=== PATIENT | female | born 1940 | race Caucasian/White ===

== ENCOUNTER → 2016-05-02 | Outpatient (CLI) | payer MEDICARE, MEDICAID ==
[~2016-05-02] MED LIST: GADOBUTROL 10mMol/10ml INJECTION IV ONE; LISI10TA7 PO; SALINE FLUSH 10ml SYRINGE ONE
--- NOTE | 2016-05-03 10:47 | DI ---
Indication: ITS.REASON: R25.1 Tremor, unspecified; G45.9 Transient cerebral ischemic erik PROCEDURE: MRI CERVICAL SPINE W/WO CONTRA: Encounter: Initial Comparison: None Technique: Multiplanar multisequence MR imaging of the cervical spine was performed with and without contrast. Contrast: 6.5 mL Gadavist Findings: Alignment of the cervical spine shows some mild scoliosis. No acute fracture identified. Possible hemangioma within the C7 vertebra. The cervical and upper thoracic spinal cord signal intensity is normal. Paraspinal soft tissues are unremarkable. 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 Segmental analysis: C2-C3: Fused without focal disk herniation, central canal or neural foraminal stenosis C3-C4: Left-sided uncovertebral hypertrophy causing mild left foraminal stenosis. No disk herniation, central canal or right neural foraminal narrowing. C4-C5: Degenerative facet and uncovertebral hypertrophy on the left causing moderate to severe neural foraminal stenosis. No focal disk herniation, central canal or right neural foraminal narrowing. C5-C6: Degenerative facet and uncovertebral changes on the right causing moderate neural foraminal stenosis. Mild degenerative left neural foraminal narrowing. No significant central canal stenosis. C6-C7: Right central disk protrusion without central canal stenosis. No right foraminal narrowing. Degenerative facet hypertrophy on the left causing severe left neural foraminal stenosis. C7-T1: Normal Postcontrast imaging shows no enhancing vertebral body or spinal cord masses. Impression: Degenerative disk and facet changes as above. No enhancing mass lesions or evidence of demyelination. .
--- NOTE | 2016-05-03 10:49 | DI ---
Indication: ITS.REASON: R25.1 Tremor, unspecified; G45.9 Transient cerebral ischemic erik PROCEDURE: MRI BRAIN W/WO CONTRAST: Encounter: Initial Comparisons: None Technique: Multiplanar, multisequence, MR imaging of the head with and without contrast was acquired. Contrast: 6.5 mL of Gadavist FINDINGS: Mild atrophy. The ventricles are of normal size, shape, and contour for the patient's age. There are small nonspecific punctate areas of T2-weighted and T2 FLAIR weighted signal abnormality in the deep frontoparietal white matter that most likely represent small vessel ischemic disease. This is of a degree that is considered to be normal for the patient's age. The brain stem, cerebellum, and cerebral hemispheres otherwise have a normal morphologic appearance as well as MR signal intensity on all pulse sequences. Following intravenous administration of contrast, no areas of abnormal enhancement are evident. There are no areas of restricted diffusion to suggest an acute infarct. There is no evidence of an intracranial mass lesion, intracranial hemorrhage, or hydrocephalus. The visualized portions of the orbits, calvarium, paranasal sinuses, and skull base demonstrate no significant abnormality. IMPRESSION: Unremarkable MRI of the head for the patient's age with and without contrast. .
== END ==
LOC: IMA 07:40
PROVIDERS: ATTEND Psychiatry & Neurology Neurology
DX: R25.1 Tremor, unspecified (principal); M41.9 Scoliosis, unspecified; M47.9 Spondylosis, unspecified; M50.223 Other cervical disc displacement at C6-C7 level; G45.9 Transient cerebral ischemic attack, unspecified
CPT/HCPCS: 70553; 72156; A9585

== ENCOUNTER 2016-05-16 20:00 | Observation (INO) | payer MEDICARE, MEDICAID ==
[~2016-05-16] VITALS: Ht 157.5 cm; Wt 87.2 kg
[~2016-05-16 20:00] MED LIST changes: -GADOBUTROL 10mMol/10ml INJECTION IV ONE; -SALINE FLUSH 10ml SYRINGE ONE
--- OUTSIDE RECORDS SUMMARY | 2016-05-16 20:04 | XMS REPORT | Continuity of Care Document ---
Author Author [facility] Organization [facility] Address Unknown Phone Unavailable Support Name Relationship Address Phone SAMSON GUZMAN MD Caregiver [facility] [address] [place] [address] Unavailable ZULAY HILL MD Caregiver [address] [place] [address] [address] [place], [place] [phone] CAO DERIK Next Of Kin [address], [place] [address] Insurance Providers Payer Name Policy Number Subscriber Name Relationship Medicare [id number] Shelley Bedolla Nyla 18 Self [facility] Advanced Patient Care Plan [id number] Shelley Bedolla 18 Self Advance Directives Directive Response Recorded Date/Time Advanced Directives Type None 11/16/13 8:16pm Problems Medical Problems Problem Onset Date Status Elbow abrasion Unknown Active Knee sprain Unknown Active Head contusion Unknown Active Elbow contusion Unknown Active Knee contusion Unknown Active Elbow abrasion Unknown Active Medications Medication Dose Route Sig Days/Qty Instructions Order Date Discontinued Date Status Lisinopril 10 Mg PO BEDTIME Take 1 tablet, by mouth, one time a day (at BEDTIME). 11/17/13 Active Social History Social History Problem Response Recorded Date/Time Smoking Status Never smoker 11/16/2013 8:13pm Hx Alcohol Use No 11/16/2013 8:13pm Hospital Discharge Instructions No hospital discharge instructions. Plan of Care No plan of care. Functional Status Query Response Date Recorded Physical Hygiene Self November 16, 2013 8:13pm Disabilities Visual November 16, 2013 8:13pm Devices Used Glasses November 16, 2013 8:13pm Dressing Self November 16, 2013 8:13pm Ambulation Self November 16, 2013 8:13pm Diet Self November 16, 2013 8:13pm Mental Status Alert Oriented November 16, 2013 9:05pm Disabilities Visual November 16, 2013 8:13pm Devices Used Glasses November 16, 2013 8:13pm Physical Hygiene Self November 16, 2013 8:13pm Dressing Self November 16, 2013 8:13pm Ambulation Self November 16, 2013 8:13pm Diet Self November 16, 2013 8:13pm Allergies, Adverse Reactions, Alerts No known allergies. Immunizations Name Given Type Hx Influenza Vaccination Y 2013 Historical Hx Pneumococcal Vaccination No Historical Hx Tetanus, Diptheria, Pertussis N UNKNOWN POSS 6 YEARS Historical Hx Influenza Vaccination Y 2013 Historical Hx Tetanus, Diptheria, Pertussis N UNKNOWN POSS 6 YEARS Historical Vital Signs Acute Vital Signs Vital Response Date/Time Temperature (Fahrenheit) 98.9 deg F (96.8 - 99.1) Temperature (Calculated Celsius) 37.73616 degrees C (36.0 - 37.3) Pulse Rate (adult) 78 bpm (60 - 100) Respiratory Rate 20 breaths/min (10 - 20) O2 Sat by Pulse Oximetry 96 % (90 - 100) Blood Pressure 128/80 mm Hg Height 5 ft 1 in Weight 174 lb Body Mass Index 32.0 kg/m^2 Results No known relevant diagnostic tests, laboratory data and/or discharge summary. Procedures No known history of procedures. Encounters Encounter Location Date/Time Departed Emergency Room [facility] 11/16/13 8:03pm Registered Clinic [facility] 10/28/13 8:56am Recent Diagnosis
[2016-05-16] MEDS ORDERED: NORMAL SALINE 1,000 ML IV ONE (20:06)
--- NOTE | 2016-05-16 20:12 | ERPDOC ---
Departure Disposition Decision Date: May 16, 2016 Disposition Decision Time: 21:31 Disposition: 02 TO [facility] Impression Impression Impression: Primary Impression: Essential tremor Severity: Severe Condition: Improved Seen By: Physician only Referrals: TIM ROSARIO MD (PCP) Problems/Meds/Labs Reviewed?: Yes Medications reviewed and manag: Yes Follow up care ordered?: Yes Mental Status: Alert, Oriented HPI - CVA/Neuro General Stated Complaint: UNABLE TO TALK OR WALK Time Seen by Provider: 20:06 Source: patient Exam Limitations: no limitations HPI - CVA/NEURO Initial Comments 75yo woman presented to the ER by her brother for inability to speak and trouble walking/moving. Pt has had trouble with tremor for the last five months. Was seen by neurologist and given primidone; has had to reduce the dose , due to side effects (N/V/D). At 1400 today, pts sx got precipitously worse and have gotten progressively worse since then. Occurred At: home Onset/Timing: Rapid, Getting worse Duration: 6-12 hrs Pain/Severity Scale: Now & Worst: 0/10 Severity: severe Associated Symptoms: muscle spasms, slurred speech, trouble walking Hx of Similar Symptoms: Yes Affected Areas/Deficit Locatio: Right Arm, Left Arm, Right Leg, Left Leg, Speech Allergies: Coded Allergies: Penicillins (Verified Allergy, Unknown, 05/16/16) Uncoded Allergies: UNKNOWN OTHER MEDS (Allergy, Unknown, 05/16/16) Past History Past Medical History Metabolic: hypertension Neurological: other (tremor) Psychological: depression Vaccines Hx Influenza Vaccination: Yes (2012) Hx Pneumococcal Vaccination: No Hx Tetanus, Diptheria, Pertuss: No (UNKNOWN POSS 6 YEARS) Review of Systems Neurological General: change in strength, dysarthria, poor coordination, tremor All other Systems All Other Systems: Reviewed and Negative Physical Exam General General Nourishment: well nourished, well developed, appears stated age, no acute distress General Body Habitus: well groomed Vitals and Pain First Documented Vital Signs Date Time Temp Pulse Resp B/P Pulse Ox O2 Delivery O2 Flow Rate FiO2 05/16/16 20:04 98.9 96 20 184/83 96 Room Air Weight: Kilograms: Height (feet): 5 Height (inches): 1 Triage Pain Scale: RN VS reviewed by Provider: Yes Normal Exams: Head: Normocephalic w/o trauma Eyes: Pupils are PERRLA w/ EOMI, No scleral icterus, irritation ENMT: No facial trauma, nasal exudates, pharyngeal erythema Neck: Full range of motion, without adenopathy, JVD Lymphatic: No lymphadenopathy Musculoskeletal: No tenderness, or deformity noted Integumentary: No rashes, hives, or bruising noted Neurologic GCS Adult : GCS Eye Opening: (4)Spontaneous GCS Verbal: (5)Oriented GCS Motor: (6)Obeys Commands Psychiatric (brief) Psychiatric Brief: FOUND: alert, oriented Supervisory Exam Chest: symmetric Abdomen: non-distended Differential Diagnoses Considering: Thrombotic CVA, Hemorrhagic CVA, Delirium, DKA, Encephalitis, Hypo /hypercalcemia, Hypo/hyperglycemia, Hypo/hypernatremia, Hysteria, Medication Effect, Neuropathy, Psychogenic, Other (tremor) Progress Results/Orders Orders Procedure Category Date Status Time Oxygen Administration EDM 05/16/16 Transmitted 20:06 Iv Lock (Ed Only) EDM 05/16/16 Transmitted 20:06 Bgm (Ed) EDM 05/16/16 Transmitted 20:06 Nothing By Mouth (Ed EDM 05/16/16 Transmitted Only) 20:06 Cbc W/Auto LAB 05/16/16 Complete Diff-Reflex Manual 20:06 Cmp - Comprehensive LAB 05/16/16 Complete Metabolic 20:06 Troponin I W LAB 05/16/16 Complete Hemolysis Index 20:06 INR LAB 05/16/16 Complete 20:06 PTT LAB 05/16/16 Complete 20:06 EKG EKG 05/16/16 Logged 20:06 Ct Head W/O Contrast CT 05/16/16 Logged 20:06 Nih Stroke Scale JAZLYN 05/16/16 In Process 20:06 Normal Saline (Normal PHA 05/16/16 In Process Saline Iv) 20:06 Elevate Hob JAZLYN 05/16/16 In Process 20:06 Measure Vital Signs JAZLYN 05/16/16 In Process 20:06 Lorazepam (Ativan) PHA 05/16/16 Complete 20:45 Ua, Dip Wreflex LAB 05/16/16 Logged [employer] 20:51 Lab Results Laboratory Tests Test 05/16/16 20:14 05/16/16 20:16 Glucometer 122mg/dL White Blood Count 7.6T/MM3 Red Blood Count 4.30M/MM3 Hemoglobin 14.2GM/DL Hematocrit 43.0% Mean Corpuscular Volume 100.0UM3 Mean Corpuscular Hemoglobin 33.0UUG Mean Corpuscular Hemoglobin Concent 33.0GM/DL RDW Standard Deviation 46.9FL Platelet Count 260T/MM3 Mean Platelet Volume 9.4UM3 Immature Granulocyte % (Auto) 0.3% Neutrophils (%) (Auto) 51.4% Lymphocytes (%) (Auto) 37.3% Monocytes (%) (Auto) 9.3% Eosinophils (%) (Auto) 1.4% Basophils (%) (Auto) 0.3% Absolute Immature Granulocyte (auto 0.02T/MM3 Absolute Neutrophils (auto) 3.9T/MM3 Absolute Lymphocytes (auto) 2.8T/MM3 Absolute Monocytes (auto) 0.7T/MM3 Absolute Eosinophils (auto) 0.1T/MM3 Absolute Basophils (auto) 0.0T/MM3 Prothromb Time International Ratio 1.10 Activated Partial Thromboplast Time 29.9SEC Turbidity < 20 Sodium Level 142MEQ/L Potassium Level 4.6MEQ/L Chloride Level 106MEQ/L Carbon Dioxide Level 23MEQ/L Anion Gap 13MEQ/L Blood Urea Nitrogen 15.0MG/DL Creatinine 0.7MG/DL Glomerular Filtration Rate Calc 82 BUN/Creatinine Ratio 21RATIO Glucose Level 119MG/DL Calculated Osmolality 275MOSM/KG Calcium Level 9.5MG/DL Total Bilirubin 0.90MG/DL Icterus Index < 2 Aspartate Amino Transf (AST/SGOT) 32U/L Alanine Aminotransferase (ALT/SGPT) 32U/L Alkaline Phosphatase 40U/L Troponin I < 0.012ng/ml Total Protein 7.8G/DL Albumin 4.7G/DL Globulin 3.1G/DL Albumin/Globulin Ratio 1.5RATIO Chemistry Specimen Hemolysis 72 Medications Current ED Medications Sodium Chloride (Normal Saline IV) 1,000 ml @ 250 mls/hr Q4H ONCE IV Last administered on 05/16/16 20:32; Start 05/16/16 at 20:06; Stop 05/17/16 at 00:05 Lorazepam (Ativan) 2 mg O ONCE IV Last administered on 05/16/16 20:32; Start 05/16/16 at 20:45; Stop 05/16/16 at 20:46; Status DC Progress Progress On initial exam, pts sx not c/w CVA. Contacted tele-neuro to help with prescribing a medication to help with tremor, since CT would be unrevealing while pt is shaking so much. Tele-neuro performed NIH stroke scale, then released pt to CT. Recommended ativan to help with tremor acutely. Since pt unable to tolerate increased doses of primidone, suggested propranolol as a secondary medication. CT head neg for hemorrhage or CVA. Tremor completely resolved with IV ativan. Pt able to speak normally. Will discuss possible admission with tele-hospitalist. Consult/PCP Consult/PCP #1: Physician Contacted: Teleneurologist Time Called: 20:11 Time of first response: 20:13 Type of discussion: Phone Consult/PCP Discussion Details Performed NIH exam prior to CT, so that tremor could be controlled for CT. Likely essential tremor. Recommends ativan; since pt is taking primidone and has had adverse events with increased dose, recommends adding propranolol instead. Consult/PCP #2: Physician Contacted: Telehospitalist Time Called: 21:23 Time of first response: 21:25 Type of discussion: Phone Consult/PCP Discussion Details Will admit pt to monitor response to recommended med changes and evaluate disposition (home vs SNF/IRU). CT CT : CT: Head no contrast Interpretation: Normal, Reviewed Written Report DAVID COKER DO May 16, 2016 20:12
--- OUTSIDE RECORDS SUMMARY | 2016-05-16 20:21 | XMS REPORT | Continuity of Care Document ---
Author Author [facility] Organization [facility] Address Unknown Phone Unavailable Support Name Relationship Address Phone SAMSON GUZMAN MD Caregiver [facility] [address] [place] [address] Unavailable ZULAY HILL MD Caregiver [address] [place] [address] [address] [place], [place] [phone] CAO DERIK Next Of Kin [address] [place], [place] [address] Insurance Providers Payer Name Policy Number Subscriber Name Relationship Medicare [id number] Shelley Bedolla Nyla 18 Self [facility] [employer] Plan [id number] Shelley Bedolla 18 Self Advance Directives Directive [...] F (96.8 - 99.1) Temperature (Calculated Celsius) 37.43355 degrees C (36.0 - 37.3) Pulse Rate [...] Encounters Encounter Location Date/Time Departed Emergency Room [facility] 11/16/13 8:03pm Registered Clinic [facility] 10/28/13 8:56am Recent Diagnosis
[2016-05-16 20:22] LABS: BASOPHILS % (AUTO) 0.3 % (0-2); EOSINOPHILS # (AUTO) 0.1 T/MM3 (0-0.5); EOSINOPHILS % (AUTO) 1.4 % (0-4); HGB - HEMOGLOBIN 14.2 GM/DL (12-16); IMMATURE GRANULOCYTE # (AUTO) 0.02 T/MM3 (0.00-0.03); IMMATURE GRANULOCYTE % (AUTO) 0.3 % (0.0-0.5); LYMPHOCYTES # (AUTO) 2.8 T/MM3 (1-4.8); LYMPHOCYTES % (AUTO) 37.3 % (23-45); MEAN PLATELET VOLUME 9.4 UM3 (9.4-12.4); MONOCYTES # (AUTO) 0.7 T/MM3 (0-0.8); MONOCYTES % (AUTO) 9.3 % (0-9.0); NEUTROPHILS #(AUTO)-ABSOLUTE 3.9 T/MM3 (1.8-7.7); NEUTROPHILS % (AUTO) 51.4 % (33-66); WBC - WHITE BLOOD COUNT 7.6 T/MM3 (4.5-11.0)
[2016-05-16] MEDS ORDERED: PRIM50TA30 PO (20:26)
[2016-05-16] MEDS ORDERED: ACET-62 PO (20:26)
[2016-05-16] MEDS ORDERED: CLON0.5T4 PO (20:26)
[2016-05-16] MEDS ORDERED: ANTI1CAP5 PO (20:26)
[2016-05-16] MEDS ORDERED: CITA20TA9 PO (20:26)
[2016-05-16 20:29] LABS: INR 1.1 (0.76-1.04); PTT 29.9 SEC (24-36)
[2016-05-16 20:31] LABS: ALBUMIN 4.7 G/DL (3.5-5.0); ALBUMIN/GLOBULIN RATIO 1.5 RATIO (1.1-2.2); ALKALINE PHOSPHATASE 40 U/L (38-126); ALT (SGPT) 32 U/L (9-52); ANION GAP 13 MEQ/L (5-15); AST (SGOT) 32 U/L (14-36); BUN/CREATININE RATIO 21 RATIO (6-26); CALCIUM 9.5 MG/DL (8.4-10.2); CHLORIDE 106 MEQ/L (98-107); CO2 - CARBON DIOXIDE 23 MEQ/L (22-30); CREATININE 0.7 MG/DL (0.7-1.2); GLOMERULAR FILTRATION RATE 82; GLUCOSE 119 MG/DL (65-110); POTASSIUM 4.6 MEQ/L (3.6-5); SODIUM 142 MEQ/L (134-144); TOTAL PROTEIN 7.8 G/DL (6.3-8.2)
--- NOTE | 2016-05-16 20:32 | NUR ---
CT PATIENT TO CT PER CART, STABLE. ACCOMPANIED BY RN. MONITORS IN PLACE.
[2016-05-16] MEDS ORDERED: LORAZEPAM 2 MG/ML INJECTION IV ONE (20:45)
--- NOTE | 2016-05-16 21:16 | NUR ---
REPORT REPORT GIVEN TO ЕЛЕНА CARCAMO RN
--- NOTE | 2016-05-16 21:40 | NUR ---
ADMIT ADVISED JONNIE BURCH OF NEED FOR ROOM ASSIGNMENT
[2016-05-16] MEDS ORDERED: HYDROCODONE/APAP 5 mg/325 mg TABLET PO PRN (21:45)
[2016-05-16] MEDS ORDERED: ACETAMINOPHEN 325 MG TABLET PO PRN (21:45)
[2016-05-16] MEDS ORDERED: ONDANSETRON 4mg/2ml INJECTION IV PRN (21:45)
--- OUTSIDE RECORDS SUMMARY | 2016-05-16 21:51 | XMS REPORT | Continuity of Care Document ---
Author Author [facility] Organization [facility] Address Unknown Phone Unavailable Support Name Relationship Address Phone SAMSON GUZMAN MD Caregiver [facility] [address] [place] [address] Unavailable ZULAY HILL MD Caregiver [address] [place] [address] [address] [place], [place] [phone] CAO DERIK Next Of Kin [address] [place], [place] [address] Insurance Providers Payer Name Policy Number Subscriber Name Relationship Medicare [id number] Shelley Bedolla Nyla 18 Self [facility] [employer] Plan [id number] Shelley Bedolla 18 Self Advance Directives Directive [...] F (96.8 - 99.1) Temperature (Calculated Celsius) 37.67256 degrees C (36.0 - 37.3) Pulse Rate [...] Encounters Encounter Location Date/Time Departed Emergency Room [facility] 11/16/13 8:03pm Registered Clinic [facility] 10/28/13 8:56am Recent Diagnosis
--- NOTE | 2016-05-16 22:10 | NUR ---
REPORT TO ROLAND BURCH
[2016-05-16 22:30] VITALS: BP 108/67; PULSE 66; RESP 16; TEMP 95.8; O2SAT 98
[2016-05-16 23:24] VITALS: Ht 157.5 cm; Wt 87.2 kg
[2016-05-17] VITALS (8 sets, daily range): BP systolic 117–142; BP diastolic 61–67; PULSE 62–74; RESP 14–24; TEMP 95.4–98.2; O2SAT 95–98
--- NOTE | 2016-05-17 00:08 | HPPDOC ---
HPI - Adult Date DATE: 05/16/16 TIME: 23:58 General Chief Complaint: Tremor History of Present Illness The pt is a 75 yo female with a known history of essential tremor and has seen a neurologist recently. She was placed on Primadone 50 mg BID just 3 weeks ago but reduced last week to 25 mg BID due to GI side effects. Ms. Bronson was brought to the ER tonight due to worsening tremors, trouble with movement, and difficulty with speech. The Er gave her 2 mg of Ativan IV which significantly helped the symptoms. During my interview it was very difficulty to understand her speech and was limited on her ability to answer questions. Past Medical History Past Medical History Essential Tremor HTN Current Medications Home Meds Reported Medications Acetaminophen (Acetaminophen) 500 Mg Tablet, 500-1000 MG PO Q8H Y for PAIN 05/16/16 Antiox #11/Om3/Dha/Epa/Lut/Velasquez (Eye Health Adult 50+ Softgel) 1 Each Capsule, 1 CAP PO DAILY 05/16/16 Clonazepam (Clonazepam) 0.5 Mg Tablet, 0.5 TAB PO Q8H Y for PRN ORDERS 05/16/16 Primidone (Primidone) 50 Mg Tablet, 50 MG PO BID 05/16/16 Citalopram Hydrobromide (Citalopram HBr) 20 Mg Tablet, 20 MG PO DAILY 05/16/16 Lisinopril (Lisinopril) 10 Mg Tablet, 10 MG PO DAILY 11/17/13 Allergies: Coded Allergies: Penicillins (Verified Allergy, Unknown, 05/16/16) Uncoded Allergies: UNKNOWN OTHER MEDS (Allergy, Unknown, 05/16/16) Family History Family History: unable to obtain due to clinical condition Social History Smoking Status: Unknown if ever smoked Does patient use chewing tobac: No Marital Status: Single Housing: apartment Household Members: none Current Occupational Status: retired Advance Directives: Yes DPOA for Healthcare Only (brother Sarah Mcdermott) Review of Systems Unable to Obtain ROS Due to: clinical condition Constitutional: REPORTS: see HPI Physical Exam General General Nourishment: well nourished General Body Habitus: well groomed Vital Signs Vital Signs Date Time Temp Pulse Resp B/P Pulse Ox O2 Delivery O2 Flow Rate FiO2 05/16/16 22:30 98.9 69 18 106/57 98 Room Air Height (Feet): 5 Height (Inches): 2.00 Respiratory Brief: FOUND: clear all bocanegra, equal bilaterally Cardiovascular (brief) Cardiac Brief: FOUND: regular rate, regular rhythm, NOT FOUND: murmur Abdomen (brief) Abdominal Brief: FOUND: BS normo active x4, soft, tender Musculoskeletal (brief) Musculoskeletal Brief: FOUND: extremities move equally Neurologic (brief) Neurological Brief: FOUND: cranial 2-12 intact Comments uncordinated tremors on all extremities, moves all 4 ext. equally, Neurologic RN Documented GCS Eye Opening: (4)Spontaneous Verbal: (5)Oriented Motor: (6)Obeys Commands Total: Laboratory Laboratory Tests Test 05/16/16 20:14 05/16/16 20:16 Glucometer 122mg/dL White Blood Count 7.6T/MM3 Red Blood Count 4.30M/MM3 Hemoglobin 14.2GM/DL Hematocrit 43.0% Mean Corpuscular Volume 100.0UM3 Mean Corpuscular Hemoglobin 33.0UUG Mean Corpuscular Hemoglobin Concent 33.0GM/DL RDW Standard Deviation 46.9FL Platelet Count 260T/MM3 Mean Platelet Volume 9.4UM3 Immature Granulocyte % (Auto) 0.3% Neutrophils (%) (Auto) 51.4% Lymphocytes (%) (Auto) 37.3% Monocytes (%) (Auto) 9.3% Eosinophils (%) (Auto) 1.4% Basophils (%) (Auto) 0.3% Absolute Immature Granulocyte (auto 0.02T/MM3 Absolute Neutrophils (auto) 3.9T/MM3 Absolute Lymphocytes (auto) 2.8T/MM3 Absolute Monocytes (auto) 0.7T/MM3 Absolute Eosinophils (auto) 0.1T/MM3 Absolute Basophils (auto) 0.0T/MM3 Prothromb Time International Ratio 1.10 Activated Partial Thromboplast Time 29.9SEC Turbidity < 20 Sodium Level 142MEQ/L Potassium Level 4.6MEQ/L Chloride Level 106MEQ/L Carbon Dioxide Level 23MEQ/L Anion Gap 13MEQ/L Blood Urea Nitrogen 15.0MG/DL Creatinine 0.7MG/DL Glomerular Filtration Rate Calc 82 BUN/Creatinine Ratio 21RATIO Glucose Level 119MG/DL Calculated Osmolality 275MOSM/KG Calcium Level 9.5MG/DL Total Bilirubin 0.90MG/DL Icterus Index < 2 Aspartate Amino Transf (AST/SGOT) 32U/L Alanine Aminotransferase (ALT/SGPT) 32U/L Alkaline Phosphatase 40U/L Troponin I < 0.012ng/ml Total Protein 7.8G/DL Albumin 4.7G/DL Globulin 3.1G/DL Albumin/Globulin Ratio 1.5RATIO Chemistry Specimen Hemolysis 72 Assessment & Plan Problems: (1) Essential tremor Status: Acute Assessment & Plan: pt will be admitted for monitoring overnight, ativan prn to help with symptoms, consider neurology input in the am, restart home meds. neuro checks Q4, telemetry, PT.OT consulted. may need placement DVT Prophylaxis: SCD'S Code Status Full Code Hospital Course Summary Disclaimer The hospital course summary below is not to be considered part of the above Progress Note. BARBARA HERNANDEZ MD May 17, 2016 00:02
--- NOTE | 2016-05-17 03:51 | NEUROPD ---
Telestroke Consultation Note Patient Information Last Name:Aiyana First Name:Shelley Location: [facility] Arrival Date/Time: Age:75 Weight:87.200 Gender:female Mode of Arrival: Cart Clinical Presentation Vital Signs/Laboratory Laboratory Tests Test 05/16/16 20:14 05/16/16 20:16 Glucometer 122mg/dL White Blood Count 7.6T/MM3 Red Blood Count 4.30M/MM3 Hemoglobin 14.2GM/DL Hematocrit 43.0% Mean Corpuscular Volume 100.0UM3 Mean Corpuscular Hemoglobin 33.0UUG Mean Corpuscular Hemoglobin Concent 33.0GM/DL RDW Standard Deviation 46.9FL Platelet Count 260T/MM3 Mean Platelet Volume 9.4UM3 Immature Granulocyte % (Auto) 0.3% Neutrophils (%) (Auto) 51.4% Lymphocytes (%) (Auto) 37.3% Monocytes (%) (Auto) 9.3% Eosinophils (%) (Auto) 1.4% Basophils (%) (Auto) 0.3% Absolute Immature Granulocyte (auto 0.02T/MM3 Absolute Neutrophils (auto) 3.9T/MM3 Absolute Lymphocytes (auto) 2.8T/MM3 Absolute Monocytes (auto) 0.7T/MM3 Absolute Eosinophils (auto) 0.1T/MM3 Absolute Basophils (auto) 0.0T/MM3 Prothromb Time International Ratio 1.10 Activated Partial Thromboplast Time 29.9SEC Turbidity < 20 Sodium Level 142MEQ/L Potassium Level 4.6MEQ/L Chloride Level 106MEQ/L Carbon Dioxide Level 23MEQ/L Anion Gap 13MEQ/L Blood Urea Nitrogen 15.0MG/DL Creatinine 0.7MG/DL Glomerular Filtration Rate Calc 82 BUN/Creatinine Ratio 21RATIO Glucose Level 119MG/DL Calculated Osmolality 275MOSM/KG Calcium Level 9.5MG/DL Total Bilirubin 0.90MG/DL Icterus Index < 2 Aspartate Amino Transf (AST/SGOT) 32U/L Alanine Aminotransferase (ALT/SGPT) 32U/L Alkaline Phosphatase 40U/L Troponin I < 0.012ng/ml Total Protein 7.8G/DL Albumin 4.7G/DL Globulin 3.1G/DL Albumin/Globulin Ratio 1.5RATIO Chemistry Specimen Hemolysis 72 Vital Signs Date Time Temp Pulse Resp B/P Pulse Ox O2 Delivery O2 Flow Rate FiO2 05/17/16 03:32 98.2 66 20 127/61 95 Room Air Patient History Scheduled Antiox #11/Om3/Dha/Epa/Lut/Velasquez (Eye Health Adult 50+ Softgel) 1 Each Capsule, 1 CAP PO DAILY, (Reported) Citalopram Hydrobromide (Citalopram HBr) 20 Mg Tablet, 20 MG PO DAILY, (Reported ) Lisinopril (Lisinopril) 10 Mg Tablet, 10 MG PO DAILY, (Reported) Primidone (Primidone) 50 Mg Tablet, 50 MG PO BID, (Reported) Scheduled PRN Acetaminophen (Acetaminophen) 500 Mg Tablet, 500-1,000 MG PO Q8H PRN for PAIN, ( Reported) Clonazepam (Clonazepam) 0.5 Mg Tablet, 0.5 TAB PO Q8H PRN for PRN ORDERS, ( Reported) Allergies: Coded Allergies: Penicillins (Verified Allergy, Unknown, 05/16/16) Uncoded Allergies: UNKNOWN OTHER MEDS (Allergy, Unknown, 05/16/16) Family History: unable to obtain due to clinical condition Smoking Status: Unknown if ever smoked Does patient use chewing tobac: No Marital Status: Single Housing: apartment Household Members: none Current Occupational Status: retired Advance Directives: Yes DPOA for Healthcare Only (brother Sarah Mcdermott) HPI Consult Start Time: 20:13 History Reviewed: Yes History of Present Illness 75yo F presents with severe shaking. Patient has been experiencing shaking since December and has been taking primidone 25mg PO BID (1/2 tablet BID. Her tremors have been worsening slowly and patient had even tried taking a full tablet BID but developed intolerable side effects on this dose. Today, patient' s shaking is significantly worse such that patient has difficulty speaking. ROS Neurological: see HPI Neuro Scores-NIHSS Level of Consciousness: 0 Level of Consciousness: 0 Level of Consciousness: 0 Best Gaze: 0 Visual: 0 Facial Palsy: 0 Motor Arm Left: 0 Motor Arm Right: 0 Motor Leg Left: 0 Motor Leg Right: 0 Limb Ataxia: 0 Sensory: 0 Best Language: 0 Dysarthria: 1 Extinction and Inattention: 0 NIH Score: 1 t-PA Imaging Reviewed: Yes Time Imaging Reviewed: 22:00 Imaging Findings No acute changes t-PA Recommended?: No Reason for not recommending not stroke Recommendation Impression: (1) Essential tremor Recommendation 75yo F presents with severe shaking. Neurological exam is notable for tremor in all four extremities, more severe head tremor, and voice tremor which inhibits patient's ability to speak. I believe patient has a severe essential tremor. Given the worsening of patient's tremor, I recommend workup to include MRI Brain without gadolinium as well as a metabolic/infectious workup as a metabolic encephalopathy may be the etiology of the worsening of the patient's tremor. I recommend propranolol 10mg BID to improve the tremor symptoms. GERALD NGUYEN MD May 17, 2016 03:39
[2016-05-17] MEDS: PRIMIDONE 50 MG TABLET PO SCH ×2 (08:25→21:02)
[2016-05-17] MEDS: SENNA + DOCUSATE TAB PO SCH ×2 (08:25→20:57)
[2016-05-17] MEDS: LORAZEPAM 0.5 MG TABLET PO PRN ×2 (08:28)
[2016-05-17 09:34] LABS: BLOOD, URINE TRACE-LYSED (NEGATIVE); COLOR,URINE YELLOW (YELLOW); LEUKOCYTE ESTERASE ,URINE NEGATIVE (NEGATIVE); NITRITE,URINE NEGATIVE (NEGATIVE); UROBILINOGEN,URINE 0.2 EU/DL (NORMAL)
[2016-05-17] MEDS: PROPRANOLOL 10 MG TABLET PO SCH ×2 (10:28→21:02)
--- NOTE | 2016-05-17 11:43 | NUR ---
CM CM VISITED PT. CM EXPLAINED ROLE AND PROVIDED CONTACT INFORMATION. CM SPOKE WITH DAUGHTER IN LAW TERESA EDMOND AND EXPLAINED ROLE. FELI AWARE THAT REFERRAL TO IRU HAS BEEN MADE ALONG WITH PT/ST. EDMOND AWARE TO CONTACT CM IF NEEDS ARISE.
--- NOTE | 2016-05-17 11:47 | NUR ---
SPEECH THERAPY: DYSPHAGIA EVALUATION Pt was evaluated by ST for swallowing function. Pt stated that she normally eats ground meat/gravy and soft foods. Pt tolerated sips of thin water however, due to the fluctuation of the pts tremors and that the pt stated that she occasionally chokes on thin liquids, it is recommended that the pt be on a Mech. soft diet with syrup thick liquids. Pt may have sips of thin water/liquids when tremors are under control.
--- NOTE | 2016-05-17 12:37 | STEVAL ---
Eval Subjective and History Date/Time of Eval DATE: 05/17/16 TIME: 12:02 Medical Diagnosis Severe Essential Tremors Treatment Order: Assessment, Dev./Imp. tx plan Orientations: Place, Time, Alert, Cooperative Primary Complaint: Tremors Pain: No Date of Onset of Primary Com: 05/17/16 (date of evaluation) Secondary Complaint: Dysphagia Prior History of This Problem: Yes (Tremors began in December 2015) Patient's Goals: Pt stated that she just wants the tremors to go away so that she can talk and eat normally. Significant Past Medical Hx: Essential tremors, HTN Medical History Form Reviewed: Yes Residence Type: Private home/apartment Lives With: Alone Prior Functional Status: Pt stated that she lives alone in her own house but was independent and did her own shopping and cooking. She reports that the tremors began in December 2015 but have worsened recently. Current Functional Status: The pt presents with significant dysfluencies and her conversational speech is difficult to understand. She will often stutter on single words and short phrases and experience great frustration. She is able to follow commands and give a detailed reports of her past medical history. She has a good sense of humor and is aware of her difficulties and need for more help. She stated that she is scared to go home and not be able to call for help. Education Subject: Safety, Diet, Treatment Plan Person(s) Educated: Patient Instruction Understanding Demo: Pt. verbalizes understand Education Comment MEDICAL LAB SCIENTIST educated patient on reasoning for evaluation. Patient was agreeable to evaluation. Dysphagia Evaluation Evaluation Location: Bed Evaluation Angle: 90 Oral Peripheral Exam-facial: Facial Symmetry: No Impairment (WFL) Tongue Elevation: Minimal Impairment Tongue Lateralization: Minimal Impairment Tongue Protrusion: Minimal Impairment Tongue Retraction: No Impairment (WFL) Tongue Extension Midline: No Impairment (WFL) Labial Approximation: No Impairment (WFL) Intraoral Air Pressure: No Impairment (WFL) Volitional Cough: No Impairment (WFL) Larynx Elevation During Swallo: Minimal Impairment Saliva Control: No Impairment (WFL) Dentition: Dentures Oral Peripheral Exam Comment: The pt demonstrated minimally decreased oral motor strength and coordination upon exam due to constant tremors. She has both upper and lower dentures. She presented with minimally decreased hyolaryngeal elevation upon a dry swallow. Her voice is clear and dry. Lip Seal: Adequate-liquid (using a straw), Adequate-pudding, Adequate-solid Lingual Manipulation: Adequate-liquid (inconsistent with thin liquds), Adequate -pudding, Adequate-solid Chewing: Inadequate-solid Oral cavity clear post swallow: Adequate-liquid, Adequate-pudding, Adequate- solid Swallow initiated w/o delay: Adequate-liquid, Adequate-pudding, Adequate-solid Multiple swallows not needed: Adequate-liquid, Adequate-pudding, Inadequate- solid Voice clear&dry post swallow: Adequate-liquid, Adequate-pudding, Adequate-solid No cough/throat clear: Adequate-liquid, Adequate-pudding, Adequate-solid (pt was assessed with trials of thin water, syrup thick juice, pudding, and saltine cracker) Assessment/Plan of Care Speech Therapy Impressions: Pt presents with oropharyngeal dysphagia secondary to essential tremors causing incoordination of breathing and possible risk of aspiration with thin liquids. Slightly decreased hyolaryngeal elevation was noted with thin liquids; no cough/throat clearing was elicited and no s/s of aspiration was noted with thin liquid trials however, pt has reported several choking episodes with thin liquids depending on the severity of her tremors at the time. The pt also presents with slightly decreased mastication of solids. She reports that she does not eat hard solids at home and prefers a soft diet with ground meat/gravy. Due to the fluctuation of the severity of the pts tremors, it is recommended that the pt be placed on a Mech soft diet with ground meat/gravy and syrup thick liquids. If the pts tremors are under control, she may tolerate sips of thin water. The following dysphagia precautions are recommended: 1. HOB increased to 90 degrees for all meals/snacks, 2. alternate bites of food with sips of liquids. 3. use an occasional dry swallow. Food Safety Director Goal: Pt will maintain nutrition and hydration of the least restrictive diet while demonstrating no s/s of aspiration for [3] consecutive trials. Short Term Goal: Pt will consume a [mech soft] consistency with [reg] liquids without outward signs of aspiration at bedside in 85% of trials. Pt will demonstrate [3] out of [3] components necessary for a safe swallow as listed from the following [1. alternate sips of liquids with bites of food, 2.HOB increased to 90 degrees for all meals, 3. use an occasional dry swallow]. ST Treatment Plan: Swallow Precautions, Modified Diet ST Treatment Plan Frequency: three times per week Treatment Plan Duration: one week Plan of Care Comment ST services will be provided to address the previously stated dysphagia goals. Recommended Diet: Mech. Soft, syrup thick liquids and sips of thin water when tremors are under control. Date of Visit 05/17/16 Time Visit Began: 10:15 Time Visit Ended: 10:50 ST Assess/Plan of Care: ST Treatment Charge: Swallow Eval Minutes of Individual Therapy: 35 GCODE Swallowing: G8996 - current Severity Modifier: CJ - 20-39% Swallowing: G8997 - goal Severity Modifier: CI - 1-19% MORE ZAMORA MA May 17, 2016 12:05
--- NOTE | 2016-05-17 12:57 | NUR ---
MARCELL FAITH SPOKE WITH FREDY FROM [facility]. THEY HAVE ACCEPTED PT FOR TOMORROW. DR CASTRO IS AWARE. MARCELL SPOKE WITH FELI PT DPOA AND SHE IS AWARE THAT PT WILL GO TO IRU TOMORROW. FELI IS PLANNING TO COME VISIT PT TODAY AND BRING SOME CLOTHING. FELI AWARE TO CONTACT CM IF NEEDS ARISE.
[2016-05-17] MEDS ORDERED: NITROGLYCERIN 0.4 MG SUBLINGUAL TABLET SL PRN (15:15)
[2016-05-17] MEDS ORDERED: MAG-AL + SIM LIQUID 30 ML UDC PO PRN (15:15)
[2016-05-17] MEDS ORDERED: MILK OF MAGNESIA 30 ML SUSP PO PRN (15:15)
[2016-05-17] MEDS ORDERED: BISACODYL 10 MG SUPPOSITORY RECTALLY PRN (15:15)
[2016-05-17] MEDS ORDERED: PRN ORDERS MC (15:15)
--- NOTE | 2016-05-17 18:12 | NUR ---
SHIFT PT HAS BEEN PLEASANT AND COOPERATIVE ALL SHIFT. PT IS A&OX3, UP WITH ONE ASSIST ,GAIT BELT AND WALKER. PT DENIES PAIN, N/V AND SOA. PT IS ON ROOM AIR. PT HAS BEEN UP TO RECLINER MOST OF SHIFT AND FOR ALL MEALS. PT DID TAKE A 3HR NAP IN AFTERNOON. FAMILY HAS BEEN AT BEDSIDE OCCASIONALLY. HIGH FUNCTIONING MR. NO OTHER CHANGES SINCE PREVIOUS SHIFT. ALARMS IN USE AND CALL LIGHT WITH IN REACH.
[2016-05-18 00:43] VITALS: BP 100/55; PULSE 61; RESP 16; TEMP 97.8; O2SAT 94
[2016-05-18 04:07] VITALS: BP 127/66; PULSE 56; RESP 14; TEMP 98; O2SAT 95
[2016-05-18 04:47] LABS: ANION GAP 7 MEQ/L (5-15); BUN/CREATININE RATIO 17 RATIO (6-26); CALCIUM 9.1 MG/DL (8.4-10.2); CHLORIDE 107 MEQ/L (98-107); CO2 - CARBON DIOXIDE 29 MEQ/L (22-30); CREATININE 0.7 MG/DL (0.7-1.2); GLOMERULAR FILTRATION RATE 82; GLUCOSE 102 MG/DL (65-110); POTASSIUM 4.2 MEQ/L (3.6-5); SODIUM 143 MEQ/L (134-144)
--- NOTE | 2016-05-18 06:30 | NUR ---
SUMMARY RESTED THROUGH THE NIGHT WITH EYES CLOSED. NO COMPLAINTS OF PAIN OR DISCOMFORT. AMBULATED TO THE BATHROOM WITH ONE PERSON ASSIST AND WALKER WITHOUT DIFFICULTY. NO CHANGE IN ASSESSMENT. WILL CONTINUE TO MONITOR.
--- NOTE | 2016-05-18 06:30 | NUR ---
Chart Check 24 hour chart check completed
[2016-05-18 08:01] VITALS: BP 141/66; PULSE 59; RESP 16; TEMP 96.8; O2SAT 95
[2016-05-18 08:02] VITALS: PULSE 59; RESP 16
[2016-05-18] MEDS: PROPRANOLOL 10 MG TABLET PO SCH (08:41)
[2016-05-18] MEDS: SENNA + DOCUSATE TAB PO SCH (08:41)
[2016-05-18] MEDS: PRIMIDONE 50 MG TABLET PO SCH (08:41)
--- NOTE | 2016-05-18 09:37 | DI ---
Indication: ITS.REASON: Tremor, evaluate for CVA PROCEDURE: MRI BRAIN W/O CONTRAST: Encounter: Initial Comparisons: Brain MRI dated May 02, 2016 Technique: Multiplanar, multisequence, MR imaging of the head without contrast was acquired. FINDINGS: Mild atrophy. The ventricles are unchanged.. There are small nonspecific punctate areas of T2-weighted and T2 FLAIR weighted signal abnormality in the deep frontoparietal white matter that most likely represent small vessel ischemic disease. This is of a degree that is considered to be normal for the patient's age. The brain stem, cerebellum, and cerebral hemispheres otherwise have a normal morphologic appearance as well as MR signal intensity on all pulse sequences. There are no areas of restricted diffusion on diffusion weighted imaging to suggest an acute infarct. There is no evidence of an intracranial mass lesion, intracranial hemorrhage, or hydrocephalus. The visualized portions of the orbits, calvarium, paranasal sinuses, and skull base demonstrate no significant abnormality. IMPRESSION: No acute intracranial abnormality. Stable exam. There is a preliminary report by [employer] radiologic. .
[2016-05-18 09:56] VITALS: BP 178/78; PULSE 72; RESP 20; O2SAT 98
[2016-05-18] MEDS ORDERED: LORAZEPAM 2 MG/ML INJECTION IV ONE (10:00)
[2016-05-18 11:17] VITALS: BP 115/62; PULSE 59; RESP 16; TEMP 98.3; O2SAT 95
--- NOTE | 2016-05-18 12:15 | PNPDOC ---
Subjective Date DATE: 05/18/16 TIME: 12:06 Subjective F/U: Essential tremor, functional decline Had bad episode of tremor this am. Shaking uncontrollable. Did decrease post IV lorazepam. Very anxious and SOA with tremor. No nausea. Eating well. No palpitations. No f/c. Objective Vital Signs Vital signs Vital Signs Date Time Temp Pulse Resp B/P Pulse Ox O2 Delivery O2 Flow Rate FiO2 05/18/16 11:17 98.3 59 16 115/62 95 Room Air Height (Feet): 5 Height (Inches): 2.00 Weight (Kilograms): 87.200 General General Appearance: Alert, Obese, Orientated x 3, Well Nourished, Well Developed, Cooperative, Looks Stated Age Eyes (Brief) Eyes: FOUND: EOMI, PERRL, NOT FOUND: scleral icterus ENMT (Brief) ENMT: FOUND: hearing intact, mucosa moist Neck (Brief) Neck: FOUND: midline, NOT FOUND: nuchal rigidity, spasm Respiratory (Brief) Respiratory: FOUND: clear all b[place], equal bilaterally, NOT FOUND: rales, wheezes Cardiovascular (Brief) Cardiac: FOUND: pedal edema (trace ), regular rate, regular rhythm Abdomen (Brief) Abdominal: FOUND: BS normo active x4, soft, NOT FOUND: distended, tender Extremities (Brief) Extremity : Side: Bilateral Extremity: leg Extremity Finding: FOUND: edema (trace) Musculoskeletal (Brief) Musculoskeletal: FOUND: extremities move equally, NOT FOUND: deformity, loss of motion Integumentary (Brief) Integumentary: FOUND: dry, warm Neurologic (Brief) Neurological: FOUND: cranial 2-12 intact, motor (Intact ) Psychiatric (Brief) Psychiatric: FOUND: alert, attentive, normal affect, other (Mild anxiety ) Laboratory Laboratory Laboratory Tests 05/16/16 20:16 05/18/16 03:47 Laboratory Tests 05/16/16 20:16 Assessment & Plan Problems: (1) Essential tremor Status: Acute Assessment & Plan: pt will be admitted for monitoring overnight, ativan prn to help with symptoms, consider neurology input in the am, restart home meds. neuro checks Q4, telemetry, PT.OT consulted. may need placement (2) Dysarthria Status: Acute (3) Dysphagia Status: Acute Qualifiers: Dysphagia type: oropharyngeal phase Qualified Codes: R13.12 - Dysphagia, oropharyngeal phase (4) Declining functional status Status: Acute (5) Gait instability Status: Acute (6) HTN (hypertension) Status: Chronic Qualifiers: Hypertension type: essential hypertension Qualified Codes: I10 - Essential (primary) hypertension (7) Depression Status: Chronic Qualifiers: Depression Type: unspecified Qualified Codes: F32.9 - Major depressive disorder, single episode, unspecified (8) Anxiety Status: Chronic (9) Osteoarthritis Status: Chronic Qualifiers: Osteoarthritis location: multiple joints Osteoarthritis type: primary Qualified Codes: M15.0 - Primary generalized (osteo)arthritis (10) Obesity (BMI 30-39.9) Status: Chronic Plan/Intensity of Service Will discharge to IRU for restorative therapy. Consult neurology tomorrow am for evaluation. Continue prn Ativan to help tremor. Continue propranolol. Encourage PT/OT/Speech. See orders for details. Care to return to Dr Galvez post discharge from IRU. DVT Prophylaxis: SCD'S Code Status Full Code Hospital Course Summary Disclaimer The hospital course summary below is not to be considered part of the above Progress Note. Hospital Course Summary 4/ OBS, Tele, continue home meds, PT/Speech evaluation, MRI of brain, Propranolol 10mg BID to help tremor, Ativan to help anxiety, IRU evaluation, up with assistance to decrease risk for falls, prn medications okay. 4/2 Had bad episode of tremor this am. Shaking uncontrollable. Did decrease post IV lorazepam. Very anxious and SOA with tremor. No nausea. Eating well. No palpitations. No f/c. Will discharge to IRU for restorative therapy. Consult neurology tomorrow am for evaluation. Continue prn Ativan to help tremor. Continue propranolol. Encourage PT/OT/Speech. See orders for details. Care to return to Dr Galvez post discharge from IRU. LENKA CASTRO MD May 18, 2016 12:12
[2016-05-18] MEDS ORDERED: LORA2VIA8 IV (12:17)
[2016-05-18] MEDS ORDERED: LORA0.5T86 PO (12:17)
[2016-05-18] MEDS ORDERED: PROP10TA10 PO (12:17)
[2016-05-18] MEDS ORDERED: PRIM50TA23 PO (12:17)
--- NOTE | 2016-05-18 13:23 | DI ---
Indication: ITS.REASON: CVA PROCEDURE: CT HEAD W/O CONTRAST: Encounter: Initial Comparison: November 16, 2013 Technique: Axial CT images through the head were performed without contrast. Iterative Reconstruction dose reducing technique was utilized. FINDINGS: The ventricles are of normal size, shape, and contour for the patient's age. Old right basal ganglia lacunar infarct. There are scattered areas of low attenuation in the white matter which most likely represent changes from chronic microvascular ischemia. The brainstem, cerebellum, and cerebral hemispheres otherwise have a normal morphology and CT attenuation. There is no evidence of midline displacement. No hemorrhage, signs of acute territorial stroke, mass effect, mass lesions, or edema is evident. The visualized portions of the skull base, midface, and calvarium demonstrate no abnormality. The paranasal sinuses are well aerated and free of significant disease. The tympanic and mastoid cavities appear normal. IMPRESSION: No acute intracranial abnormality or hemorrhage. There is a preliminary report by [facility]. .
--- NOTE | 2016-05-18 14:35 | NUR ---
DISCHARGE PT DISCHARGED FROM THE MEDICAL UNIT TO INPATIENT REHAB BED #170 AT THIS TIME. PT TRANSPORTED TO ROOM #170 VIA WHEELCHAIR BY STAFF. DISCHARGE INSTRUCTIONS AND MEDICATION LIST PRINTED AND SENT WITH PT. PACKET GIVEN TO MICHI HERNÁNDEZ RN. REPORT GIVEN TO MICHI VIA PHONE JUST PRIOR TO DISCHARGE. ALL PATIENT BELONGINGS AND HOME MEDICATIONS TRANSFERRED WITH PT. PT VERBALIZED UNDERSTANDING OF DISCHARGE DISPOSITION. THIS RN CALLED PT'S DPOA - FELI BEDOLLA TO NOTIFY PT'S DISCHARGE TO IRU. FELI ALSO VERBALIZED UNDERSTANDING OF DC DISPOSITION AND HAD NO FURTHER CONCERNS. IVL REMAINS IN PLACE TO LEFT HAND IV ACCESS IS NEEDED WHILE PT IS ON IRU. WILL CONTINUE TO MONITOR.
--- NOTE | 2016-05-19 07:11 | DSF ---
DATE OF INITIATION OF OBSERVATION: 05/16/2016. DATE OF DISCHARGE: 05/18/2016. ADMISSION DIAGNOSIS Essential tremor. DISCHARGE DIAGNOSIS Essential treatment. ASSOCIATED CONDITION AND COMPLICATIONS Dysarthria secondary to essential tremor. Dysphagia. Declining functional status. Gat instability. Hypertension. Depression. Anxiety. Osteoarthritis. Obesity. PROCEDURES MRI of brain. CONSULTS PT, OT, Speech. CLINICAL RESUME Shelley Bronson is a 75-year-old female with history of essential tremor who presents to [facility] secondary to worsening tremors. She was recently started on primidone. She initially was on 25 mg b.i.d., but when this was increased to 50 mg b.i.d. it had to be reduced secondary to GI side effects. Unfortunately, despite this medication, she has been having persistent tremors. She presents to emergency department secondary to tremors increasing. Associated with this is significant trouble with movements, ambulating, and also difficulty with speech. In emergency room she was given 2 mg of Ativan which did help decrease her shakiness and tremulousness. In light of her declining functional status, hospitalist service was notified and patient was subsequently placed in outpatient observation at [facility] for further evaluation and treatment. For complete details of the H&P, refer to that document. LABORATORY White blood count is 7.6 with hemoglobin 14.2, hematocrit 43.0, MCV 100 and platelets 260,000. Serum sodium is 142, potassium 4.6, chloride 106, CO2 23, BUN 15 with creatinine 0.5, GFR 82 and blood glucose 119. Transaminases are unremarkable. INR is 1.01 with PTT 29.9. UA reveals low specific gravity less than or equal to 1.005 and trace blood. Stool PCR panel is completely negative. HOSPITAL COURSE The patient was placed in outpatient observation status at [facility] under the care of the hospitalist service. We did initiate PT and Speech to evaluate her functional status. She presented over the weekend and occupational therapy was not available. In emergency room, a teleneurologist did see the patient. They recommended MRI of brain which was obtained - showing no acute process. Additionally they recommended starting propranolol 10 mg b.i.d. to help her tremor. We did initiate this and also had Ativan available to help with anxiety. Due to her significant decline in functional status, we felt IRU screen would be prudent. IRU screen was placed. Hospital course was one of some improvement. The morning of May 18 she did have another bad episode of significant tremulousness. We did give IV Ativan which helped her symptoms significantly. She was tolerating therapy and moving a little bit better but still needing help and assistance with simple activities. In light of her significant functional decline, inpatient rehabilitation did feel they could make functional gains. She was accepted to IRU. She was able to be discharged there on the in stable condition. Narrative disclaimer: Above narrative is a brief summary of the patient's hospitalization; for complete details of the hospital course, refer the medical record. DISCHARGE CONDITION Stable/good. DIET Mechanical soft diet with syrup-thick liquids. ACTIVITIES Walker for assistance. MEDICATIONS Primidone 25 mg b.i.d. Propranolol 10 mg b.i.d. Lorazepam 0.5 mg q.6h. p.r.n. anxiety/agitation. Lorazepam 1 mg IV q.4h. p.r.n. severe tremor/anxiety. Acetaminophen 500 mg 1-2 q.8h. p.r.n. pain. [facility] Softgel daily. Citalopram 20 mg daily. Clonazepam 0.5 mg q.8h. p.r.n. Lisinopril 10 mg daily. FOLLOWUP The patient will be followed by Dr. Salgado for rehabilitation care while on IRU. Definitive hospital followup with Dr. Galvez will be made at time of discharge from IRU. INSTRUCTION TO PATIENT Patient was instructed on her diagnosis and treatments provided. We discussed findings of MRI report. We encouraged her to participate well with therapy. We encouraged her be adherent with medications. She will monitor for temperature elevation or new or worsening respiratory problems. Should problems or need occur she can be in contact with the nursing staff at IRU as well as her care providers. She voiced understanding of the above. Time spent with discharge greater than 35 minutes. ZACKARY
== END 2016-05-18 14:32 ==
LOC: ED 20:00 → MED 21:36 → EDHOLD 21:36
PROVIDERS: ADMIT Internal Medicine; ATTEND Hospitalist
DX: G25.0 Essential tremor (principal); R47.1 Dysarthria and anarthria; R13.12 Dysphagia, oropharyngeal phase; R26.89 Other abnormalities of gait and mobility; I10 Essential (primary) hypertension; F32.9 Major depressive disorder, single episode, unspecified; F41.9 Anxiety disorder, unspecified; M15.0 Primary generalized (osteo)arthritis; E66.9 Obesity, unspecified; Z68.35 Body mass index [BMI] 35.0-35.9, adult; Z79.899 Other long term (current) drug therapy
CPT/HCPCS: 36415; 70450; 70551; 80048; 80053; 81003; 82948; 84484; 85025; 85610; 85730; 87507; 92610; 93005; 96361; 96374; 96375; 97116; 97162; 99284; A9270; G0378; G0379; G8978; G8979; G8996; G8997; J2060; J7030; 99218

== ENCOUNTER 2016-05-18 14:57 | Inpatient (IN) | payer MEDICARE, MEDICAID ==
[~2016-05-18] VITALS: Ht 157.5 cm; Wt 80.6 kg
--- NOTE | 2016-05-18 14:35 | NUR ---
Admit Patient admitted to IRU room 170 from [facility] Medical unit. Patient transferred in wheelchair by nursing staff. Assisted to bed x1 assist with gait belt, FWW. Patient has noticeable essential tremors. She states she stutters at times when speaking. Patient signed admission paper work and stated her sister in law is her DPOA. Denies pain at this time.
[~2016-05-18 14:57] MED LIST changes: +ACET-62 PO; +ANTI1CAP5 PO; +CITA20TA9 PO; +CLON0.5T4 PO; +LORA0.5T86 PO; +LORA2VIA8 IV; +PRIM50TA23 PO; +PRIM50TA30 PO; +PROP10TA10 PO
--- OUTSIDE RECORDS SUMMARY | 2016-05-18 15:02 | XMS REPORT | Continuity of Care Document ---
Author Author [facility] Organization [facility] Address Unknown Phone Unavailable Care Team Providers Care Credit And Loan Collections Supervisor Name Role Phone TIM ROSARIO MD Primary Care Physician [phone] Insurance Providers Guarantor Shelley Bedolla Nyla Address [address] [facility] [address] [place] [address] BRO Email DENIED [address] [employer] Policy Number [id number] Subscriber's Name Shelley Bedolla Relationship 18 Self Effective Date 16 Expiration Date 16 Payer Medicare Policy Number [id number] Subscriber's Name Shelley Bedolla Relationship 18 Self Effective Date 92 Advance Directives Directive Response Recorded Date/Time Advanced Directives Type DPOA for Healthcare 05/16/16 8:04pm Ordered Resuscitation Status Full Code 05/16/16 9:37pm Resuscitation Documents on File No 05/16/16 11:25pm DPOA for Healthcare Only Y brother Derik Mcdermott 05/17/16 3:50am Living Will No 05/16/16 11:25pm Problems Active Problems Medical Problem Onset Date Status Anxiety Unknown Chronic Declining functional status Unknown Acute Depression Unknown Chronic Dysarthria Unknown Acute Dysphagia Unknown Acute Elbow abrasion Unknown Acute Elbow abrasion Unknown Acute Elbow contusion Unknown Acute Gait instability Unknown Acute HTN (hypertension) Unknown Chronic Head contusion Unknown Acute Knee contusion Unknown Acute Knee sprain Unknown Acute Obesity (BMI 30-39.9) Unknown Chronic Osteoarthritis Unknown Chronic Past Problems Medical Problem Onset Date Essential tremor Unknown Medications Current Home Medications Medication Dose Units Route Directions Days Qty Instructions Start Date Acetaminophen 500 Mg Tablet 500-1000 Mg Oral Every 8 Hours as needed for Pain 05/16/16 Antiox #11/Om3/Dha/Epa/Lut/Velasquez (Eye Health Adult 50+ Softgel) 1 Each Capsule 1 Cap Oral Daily 05/16/16 Citalopram Hydrobromide (Citalopram Hbr) 20 Mg Tablet 20 Mg Oral Daily 05/16/16 Clonazepam 0.5 Mg Tablet 0.5 Tab Oral Every 8 Hours as needed for Prn Orders 05/16/16 Lisinopril 10 Mg Tablet 10 Mg Oral Daily 11/17/13 Lorazepam (Ativan) 0.5 Mg Tablet 0.5 Mg Oral Q6h/0300,0900,1500,2100 as needed for Anxiety/Agitation 15 Tablet 05/18/16 Lorazepam 2 Mg/1 Ml Vial 1 Mg Intraven Every 4 Hours as needed for Tremor/ Anxiey 10 05/18/16 Primidone (Mysoline) 50 Mg Tablet 25 Mg Oral Twice A Day 30 Tablet 05/18/16 Propranolol Hcl 10 Mg Tablet 10 Mg Oral Twice A Day 60 Tablet 05/18 Past Home Medications Medication Directions Ordered Status Primidone 50 Mg Tablet, 50 Mg Oral Twice A Day 05/16/16 Discontinued Social History Social History Problem Response Recorded Date/Time Onset Date Status Reason for Hospitalization Essential tremor 05/18/2016 1:46pm Not Applicable Not Applicable Chewing Tobacco Status No 05/16/2016 8:57pm Not Applicable Not Applicable Hx Alcohol Use No 11/16/2013 8:13pm Not Applicable Not Applicable Has the pt used tobacco in the last 12 months No 05/16/2016 11:31pm Not Applicable Not Applicable Tobacco Usage none 11/30/2013 12:38am Not Applicable Not Applicable Query Response Start Date Stop Date Smoking Status Former smoker Hospital Discharge Instructions Instructions: Care Instructions: I was in the hospital because (patient own words): Shaking Discharge Diet: Mech soft with syrup thick liquids. Discharge Activity: Walker for assistance Follow Up Appointments: Dr Salgado to follow on IRU F/U with Dr Rosario 1 week post discharge from IRU. Pending Lab / Results: No Pending Lab Expected Signs/Symptoms: Improvement of functional status. Improvement of tremor. Notify Physician If: Temp >100.4. New or worsening breathing problems. During Business Hours:: Nursing staff at IRU After Business Hours:: Nursing staff at IRU Pain Management/Treatment: Tylenol as needed. Pain Scale Utilized to Educate Patient: 0-10 Pain Scale Wound/Incision Care: n/a Condition at time of discharge: Good Plan of Care Discharge Date 05/18/16 2:32pm Disposition 62 TO [facility] Instructions/Education Provided Tremors (GEN) Prescriptions See Medication Section Care Plan and Goals See Discharge Instructions Section Functional Status Query Response Date Recorded Mobility Status Ambulatory w/assist May 17, 2016 12:04am Assistive Devices Standard Walker May 17, 2016 12:04am Feeding Ability Assist May 17, 2016 12:04am Toileting Ability Assist May 17, 2016 12:04am Grooming Ability Assist May 17, 2016 12:04am Dressing Ability Assist May 17, 2016 12:04am Driving Ability Dependent May 17, 2016 12:04am Housework Ability Assist May 17, 2016 12:04am Meal Preparation Ability Assist May 17, 2016 12:04am Stair Climbing Ability Dependent May 17, 2016 12:04am Ability to complete ADL's impeded by Impaired Mobility May 17, 2016 12:04am Cognitive/Perceptual Impairments Impaired vision Imp. verbal communication May 17, 2016 12:04am Visual Assistive Devices Glasses May 17, 2016 12:04am Preferred Method of Learning Demonstration May 17, 2016 12:04am Allergies, Adverse Reactions, Alerts Allergen Type Severity Reaction Status Last Updated Penicillin Allergy Unknown Active 05/16/16 UNKNOWN OTHER MEDS Allergy Unknown Active 05/16/16 Immunizations Query Response on File Recorded Date/Time Hx Influenza Vaccination Y FALL 201505/16/16 11:31pm Hx Pneumococcal Vaccination Y fall 201505/16/16 11:31pm Hx Tetanus, Diptheria, Pertussis N UNKNOWN POSS 6 YEARS 11/16/13 8:13pm Hx Influenza Vaccination Y fall 201505/16/16 11:31pm Hx Tetanus, Diptheria, Pertussis N UNKNOWN POSS 6 YEARS 11/16/13 8:13pm Influenza Vaccine Hx FALL 201505/17/16 10:41am Vital Signs Acute Vital Signs Vital Response Date/Time Temperature (Fahrenheit) 98.3 deg F (96.8 - 99.1) 05/18/2016 11:17am Temperature (Calculated Celsius) 36.76858 degrees C (36.0 - 37.3) 05/18/2016 11:17am Pulse Rate (adult) 59 bpm (60 - 100) 05/18/2016 11:17am Respiratory Rate 16 breaths/min (10 - 20) 05/18/2016 11:17am O2 Sat by Pulse Oximetry 95 % (90 - 100) 05/18/2016 11:17am Oxygen Delivery Method Room Air 05/18/2016 11:17am Blood Pressure 115/62 mm Hg 05/18/2016 11:17am Blood Pressure Source Automatic Cuff 05/18/2016 11:17am Height (Feet) 5 feet 05/18/2016 12:15pm Height (Inches) 2.00 inches 05/18/2016 12:15pm Weight (Kilograms) 87.200 kg 05/18/2016 8:00am Body Mass Index (BMI) 35.2 05/16/2016 11:24pm Results Laboratory Results Test Name Result Units Flags Reference Collection Date/Time Result Date/ Time Comments White Blood Count 7.6 T/MM3 4.5-11.0 05/16/2016 8:16pm 05/16/2016 8: 22pm Red Blood Count 4.30 M/MM3 4.00-5.20 05/16/2016 8:16pm 05/16/2016 8: 22pm Hemoglobin 14.2 GM/DL 12-16 05/16/2016 8:16pm 05/16/2016 8:22pm Hematocrit 43.0 % 36-46 05/16/2016 8:1605/16/2016 8:22pm Mean Corpuscular Volume 100.0 UM3 80-100 05/16/2016 8:16pm 05/16/2016 8 :22pm Mean Corpuscular Hemoglobin 33.0 UUG 26-34 05/16/2016 8:16pm 2016 8:22pm Mean Corpuscular Hemoglobin Concent 33.0 GM/DL 31-37 05/16/2016 8:16pm 05/16/2016 8:22pm RDW Standard Deviation 46.9 FL 36.9-50.2 05/16/2016 8:16pm 05/16/2016 8 :22pm Platelet Count 260 T/MM3 130-400 05/16/2016 8:1605/16/2016 8:22pm Mean Platelet Volume 9.4 UM3 9.4-12.4 05/16/2016 8:16pm 05/16/2016 8: 22pm Neutrophils (%) (Auto) 51.4 % 33-66 05/16/2016 8:16pm 05/16/2016 8: 22pm Lymphocytes (%) (Auto) 37.3 % 23-45 05/16/2016 8:1605/16/2016 8: 22pm Monocytes (%) (Auto) 9.3 % H 0-9.0 05/16/2016 8:1605/16/2016 8:22pm Eosinophils (%) (Auto) 1.4 % 0-4 05/16/2016 8:1605/16/2016 8:22pm Basophils (%) (Auto) 0.3 % 0-2 05/16/2016 8:1605/16/2016 8:22pm Immature Granulocyte % (Auto) 0.3 % 0.0-0.5 05/16/2016 8:2016 8:22pm Absolute Neutrophils (auto) 3.9 T/MM3 1.8-7.7 05/16/2016 8:16pm 2016 8:22pm Absolute Lymphocytes (auto) 2.8 T/MM3 1-4.8 05/16/2016 8:16pm 2016 8:22pm Absolute Monocytes (auto) 0.7 T/MM3 0-0.8 05/16/2016 8:05/16/2016 8:22pm Absolute Eosinophils (auto) 0.1 T/MM3 0-0.5 05/16/2016 8:162016 8:22pm Absolute Basophils (auto) 0.0 T/MM3 0-0.2 05/16/2016 8:16pm 05/16/2016 8:22pm Absolute Immature Granulocyte (auto 0.02 T/MM3 0.00-0.03 05/16/2016 8: 1605/16/2016 8:22pm Prothromb Time International Ratio 1.10 H 0.76-1.04 05/16/2016 8:1605/16/2016 8:29pm THERAPUTIC RANGE=2.00-3.00 FOR ANTI-THROMBOSIS THERAPUTIC RANGE=2.50-3.50 FOR IMPLANTED VALVE Activated Partial Thromboplast Time 29.9 SEC 24-36 05/16/2016 8:16pm 8:29pm Icterus Index < 2 0-7 05/18/2016 3:47am 05/18/2016 4:47am Chemistry Specimen Hemolysis < 15 0-25 05/18/2016 3:47am 05/18/2016 4 :47am 0-25: Specimen Exhibited No Hemolysis. Turbidity < 20 0-20 05/18/2016 3:47am 05/18/2016 4:47am Sodium Level 143 MEQ/L 134-144 05/18/2016 3:47am 05/18/2016 4:47am Potassium Level 4.2 MEQ/L 3.6-5 05/18/2016 3:47am 05/18/2016 4:47am Chloride Level 107 MEQ/L 98-107 05/18/2016 3:47am 05/18/2016 4:47am Carbon Dioxide Level 29 MEQ/L 22-30 05/18/2016 3:47am 05/18/2016 4: 47am Anion Gap 7 MEQ/L 5-15 05/18/2016 3:47am 05/18/2016 4:47am Blood Urea Nitrogen 12.0 MG/DL 7-17 05/18/2016 3:47am 05/18/2016 4: 47am Creatinine 0.7 MG/DL 0.7-1.2 05/18/2016 3:47am 05/18/2016 4:47am BUN/Creatinine Ratio 17 RATIO 6-26 05/18/2016 3:47am 05/18/2016 4:47am Glomerular Filtration Rate Calc 82 05/18/2016 3:47am 05/18/2016 4: 47am Glucose Level 102 MG/DL 65-110 05/18/2016 3:47am 05/18/2016 4:47am Calculated Osmolality 275 MOSM/KG 261-280 05/18/2016 3:47am 05/18/2016 4:47am Calcium Level 9.1 MG/DL 8.4-10.2 05/18/2016 3:47am 05/18/2016 4:47am Total Bilirubin 0.90 MG/DL 0.20-1.30 05/16/2016 8:16pm 05/16/2016 8: 31pm Alkaline Phosphatase 40 U/L 38-126 05/16/2016 8:16pm 05/16/2016 8:31pm Total Protein 7.8 G/DL 6.3-8.2 05/16/2016 8:16pm 05/16/2016 8:31pm Albumin 4.7 G/DL 3.5-5.0 05/16/2016 8:16pm 05/16/2016 8:31pm Globulin 3.1 G/DL 2.4-3.6 05/16/2016 8:16pm 05/16/2016 8:31pm Albumin/Globulin Ratio 1.5 RATIO 1.1-2.2 05/16/2016 8:16pm 05/16/2016 8 :31pm Aspartate Amino Transf (AST/SGOT) 32 U/L 14-36 05/16/2016 8:16pm 2016 8:31pm Alanine Aminotransferase (ALT/SGPT) 32 U/L 9-52 05/16/2016 8:16pm 05/16 8:31pm Troponin I < 0.012 ng/ml 0-0.12 05/16/2016 8:16pm 05/16/2016 8:42pm Troponin values with a difference of 55% increase from orginal troponin value represent a true biological DELTA value. (%increase Calc=Orginal Troponin value, divided by subsequent Troponin value, multiplied by 100) Stool Campylobacter PCR NEGATIVE NEGATIVE 05/17/2016 1:39pm 2016 3:05pm Stool C. difficile Toxin (PCR) NEGATIVE NEGATIVE 05/17/2016 1:39pm 3:05pm Stool Plesiomonas shigelloides PCR NEGATIVE NEGATIVE 05/17/2016 1: 39pm 05/17/2016 3:05pm Stool Salmonella PCR NEGATIVE NEGATIVE 05/17/2016 1:39pm 05/17/2016 3 :05pm Stool Vibrio (PCR) NEGATIVE NEGATIVE 05/17/2016 1:39pm 05/17/2016 3: 05pm Stool Vibrio cholera (PCR) NEGATIVE NEGATIVE 05/17/2016 1:39pm 2016 3:05pm Stool Yersinia enterocolitica (PCR) NEGATIVE NEGATIVE 05/17/2016 1: 39pm 05/17/2016 3:05pm Stool Enteroaggregative E. coli PCR NEGATIVE NEGATIVE 05/17/2016 1: 39pm 05/17/2016 3:05pm Stool Enteropathogenic E. coli (PCR NEGATIVE NEGATIVE 05/17/2016 1: 39pm 05/17/2016 3:05pm Stool Enterotoxigenic Ecoli PCR NEGATIVE NEGATIVE 05/17/2016 1:39pm 05/17/2016 3:05pm Stool E. coli Shiga Toxins NEGATIVE NEGATIVE 05/17/2016 1:39pm 2016 3:05pm Stool E coli O157 PCR N/A NA/NEG 05/17/2016 1:39pm 05/17/2016 3:05pm Stool Shigella/EIEC (PCR) NEGATIVE NEGATIVE 05/17/2016 1:39pm 2016 3:05pm Stool Cryptosporidium PCR NEGATIVE NEGATIVE 05/17/2016 1:39pm 2016 3:05pm Stool Cyclospora species Detection NEGATIVE NEGATIVE 05/17/2016 1: 39pm 05/17/2016 3:05pm Stool Entamoeba (PCR) NEGATIVE NEGATIVE 05/17/2016 1:39pm 05/17/2016 3:05pm Stool Giardia Lamblia PCR NEGATIVE NEGATIVE 05/17/2016 1:39pm 2016 3:05pm Stool Adenovirus (PCR) NEGATIVE NEGATIVE 05/17/2016 1:39pm 2016 3:05pm Stool Astrovirus (PCR) NEGATIVE NEGATIVE 05/17/2016 1:39pm 2016 3:05pm Stool Norovirus GI/GII PCR NEGATIVE NEGATIVE 05/17/2016 1:39pm 2016 3:05pm Stool Rotavirus A PCR NEGATIVE NEGATIVE 05/17/2016 1:39pm 05/17/2016 3:05pm Stool Sapovirus (PCR) NEGATIVE NEGATIVE 05/17/2016 1:39pm 05/17/2016 3:05pm Urine Collection Type CLEANCATCH-MIDSTREAM 05/17/2016 9:25am 2016 9:34am Urine Color YELLOW YELLOW 05/17/2016 9:25am 05/17/2016 9:34am Urine Turbidity CLEAR CLEAR 05/17/2016 9:25am 05/17/2016 9:34am Urine Specific [place] <=1.005 L 1.015-1.025 05/17/2016 9:25am 2016 9:34am Urine pH 6.0 5.0-8.0 05/17/2016 9:25am 05/17/2016 9:34am Urine Leukocyte Esterase NEGATIVE NEGATIVE 05/17/2016 9:252016 9:34am Urine Nitrite NEGATIVE NEGATIVE 05/17/2016 9:25am 05/17/2016 9:34am Urine Protein NEGATIVE NEGATIVE 05/17/2016 9:25am 05/17/2016 9:34am Urine Glucose (UA) NEGATIVE NEGATIVE 05/17/2016 9:2505/17/2016 9: 34am Urine Ketones NEGATIVE NEGATIVE 05/17/2016 9:25am 05/17/2016 9:34am Urine Urobilinogen 0.2 EU/DL NORMAL 05/17/2016 9:2505/17/2016 9: 34am Urine Bilirubin NEGATIVE NEGATIVE 05/17/2016 9:05/17/2016 9: 34am Urine Blood TRACE-LYSED A NEGATIVE 05/17/2016 9:05/17/2016 9: 34am Urinalysis Comment MICROSCOPIC NOT IND. 05/17/2016 9:2016 9:34am Glucometer 122 mg/dL H 65-110 05/16/2016 8:14pm 05/16/2016 8:37pm Name: SHELLEY BEDOLLA Unit #: [id number] : [id number] Sex: F Admit Date: 05/16/16 Loc / Svc: MED Discharge Date: DIAGNOSTIC IMAGING REPORT Report #: [id number] [facility] RODERICK Joseph Indication: ITS.REASON: CVA PROCEDURE: CT HEAD W/O CONTRAST: Encounter: Initial Comparison: November 16, 2013 Technique: Axial CT images through the head were performed without contrast. Iterative Reconstruction dose reducing technique was utilized. FINDINGS: The ventricles are of normal size, shape, and contour for the patient's age. Old right basal ganglia lacunar infarct. There are scattered areas of low attenuation in the white matter which most likely represent changes from chronic microvascular ischemia. The brainstem, cerebellum, and cerebral hemispheres otherwise have a normal morphology and CT attenuation. There is no evidence of midline displacement. No hemorrhage, signs of acute territorial stroke, mass effect, mass lesions, or edema is evident. The visualized portions of the skull base, midface, and calvarium demonstrate no abnormality. The paranasal sinuses are well aerated and free of significant disease. The tympanic and mastoid cavities appear normal. IMPRESSION: No acute intracranial abnormality or hemorrhage. There is a preliminary report by [employer]. . Procedures Procedure Status Date Provider(s) Mri brain stem w/o & w/dye Completed 05/02/16 Mri neck spine w/o & w/dye Completed 05/02/16 GADAVIST 10ML SDV - Contrast,Gadavist 10ml Completed 05/02/16 Encounters Encounter Location Arrival/Admit Date Discharge/Depart Date Attending Provider Discharged Inpatient (obs) [facility] 05/16/16 9:36pm 05/18/16 2: 32pm LENKA CASTRO MD [facility] 05/02/16 7:40am KIKI CHRISTY MD
--- OUTSIDE RECORDS SUMMARY | 2016-05-18 15:02 | XMS REPORT | Continuity of Care Document ---
Author Author [facility] Organization [facility] Address Unknown Phone Unavailable Support Name Relationship Address Phone SAMSON GUZMAN MD Caregiver [facility] [address] [place] [address] Unavailable ZULAY HILL MD Caregiver [address] [place] [address] [address] [place], [place] [phone] CAO DERIK Next Of Kin [address] [place], [place] [address] Insurance Providers Payer Name Policy Number Subscriber Name Relationship Medicare [id number] Shelley Bedolla Nyla 18 Self [facility] [employer] Plan [id number] Shelley Bedolla 18 Self Advance Directives Directive [...] F (96.8 - 99.1) Temperature (Calculated Celsius) 37.86617 degrees C (36.0 - 37.3) Pulse Rate [...] Encounters Encounter Location Date/Time Departed Emergency Room [facility] 11/16/13 8:03pm Registered Clinic [facility] 10/28/13 8:56am Recent Diagnosis
[2016-05-18 15:20] VITALS: Ht 157.5 cm; Wt 80.6 kg
[2016-05-18 15:37] VITALS: BP 135/61; PULSE 64; RESP 18; TEMP 97.4; O2SAT 98
[2016-05-18 16:00] VITALS: PULSE 64; RESP 18
[2016-05-18 16:27] VITALS: BP 125/59; PULSE 68; RESP 16; TEMP 97.9; O2SAT 97
[2016-05-18] MEDS ORDERED: LORAZEPAM 2 MG/ML INJECTION IV PRN (16:45)
[2016-05-18] MEDS ORDERED: CLONAZEPAM 0.5 MG TABLET PO PRN (16:45)
[2016-05-18] MEDS ORDERED: LORAZEPAM 0.5 MG TABLET PO PRN (16:45)
[2016-05-18] MEDS ORDERED: MAGNESIUM CITRATE 296 ML SOLUTION PO ONE (18:30)
--- NOTE | 2016-05-18 19:16 | NUR ---
Shift Summary Patient ambulating to bathroom with min assist gait belt, FWW. Transfers with git belt, min assist. Fed self supper with supervision. Mechanical soft diet with syrup thick liquids. Takes meds in yogurt. IVL flushes, aspirates well. Tremors and stuttering noticeable on admission. Tremors and stuttering absent after patient slept and during first half of supper in the dining room. Another patient's family member welcomed Shelley to the dining room and welcomed her to the "[employer]". Shelley began mild stuttering and tremors started again. Alert and oriented x3. Able to manage toileting hygeine with min assist. Denies pain. Wears glasses and dentures. Alert to self, place, month and day, but couldn't remember year.
[2016-05-18] MEDS: PRIMIDONE 50 MG TABLET PO SCH (21:23)
[2016-05-18] MEDS: PROPRANOLOL 10 MG TABLET PO SCH (21:23)
[2016-05-18] MEDS: DOCUSATE SODIUM 100 MG CAPSULE PO SCH (21:26)
[2016-05-18 22:07] VITALS: PULSE 68; RESP 16; O2SAT 96
--- NOTE | 2016-05-18 23:30 | NUR ---
STATUS PT UP TO RESTROOM. PT GETS OUT OF BED AND AMBULATES WITH MINIMAL ASSIST, WALKER, AND GAIT BELT. PT HAS NO TREMORS NO STUTTERING SPEECH. PT SPEECH CLEAR WITH NO STUTTER AND GAIT IS STEADY WITH NO OBVIOUS IMPAIRMENT. PT AFTER WASHING HANDS CRUMPLED UP PAPER TOWEL AND TOSSED IT INTO THE TRASH FROM APPROXIMATELY [address] WHILE MAKING JOKE ABOUT PLAYING BASKETBALL. PT POSITIONS SELF BACK INTO BED WITH NO DIFFICULTY AND HAS NO COMPLAINTS OR NEEDS AT THIS TIME.
[2016-05-18 23:42] VITALS: BP 145/87; PULSE 77; RESP 16; TEMP 97.4; O2SAT 96
--- NOTE | 2016-05-18 23:45 | NUR ---
STATUS PT USED CALL LIGHT. UPON ENTERING ROOM PT IS SHAKING AND STATES WITH A HEAVY STUTTER THAT SHE CANNOT STOP SHAKING. PT REPOSITIONED IN BED AND LEGS ELEVATED. PT INSTRUCTED TO TRY TO RELAX, LIGHTS TURNED OFF, BLINDS CLOSED, NOISE MINIMIZED AND DOOR CRACKED. WILL CONTINUE TO MONITOR PT.
--- NOTE | 2016-05-19 00:15 | NUR ---
STATUS PT SLEEPING SOUNDLY IN BED. RAILS UP X2 BED IN LOW POSITION CALL LIGHT IN REACH BED ALARM ON. WILL CONTINUE TO MONITOR PT FOR SHAKING AND STUTTERING.
[2016-05-19 00:49] VITALS: RESP 16
[2016-05-19 05:20] LABS: BASOPHILS % (AUTO) 0.5 % (0-2); EOSINOPHILS # (AUTO) 0.2 T/MM3 (0-0.5); EOSINOPHILS % (AUTO) 2.9 % (0-4); HCT - HEMATOCRIT 41.1 % (36-46); HGB - HEMOGLOBIN 13.4 GM/DL (12-16); IMMATURE GRANULOCYTE # (AUTO) 0.01 T/MM3 (0.00-0.03); IMMATURE GRANULOCYTE % (AUTO) 0.2 % (0.0-0.5); LYMPHOCYTES # (AUTO) 3.2 T/MM3 (1-4.8); LYMPHOCYTES % (AUTO) 53.5 % (23-45); MEAN CORPUSCULAR HGB 32.9 UUG (26-34); MEAN CORPUSCULAR HGB CONC(MCHC 32.6 GM/DL (31-37); MEAN PLATELET VOLUME 9.7 UM3 (9.4-12.4); MONOCYTES # (AUTO) 0.6 T/MM3 (0-0.8); MONOCYTES % (AUTO) 9.4 % (0-9.0); NEUTROPHILS % (AUTO) 33.5 % (33-66); RED BLOOD COUNT 4.07 M/MM3 (4.00-5.20); WBC - WHITE BLOOD COUNT 5.9 T/MM3 (4.5-11.0)
[2016-05-19 05:27] LABS: ANION GAP 10 MEQ/L (5-15); BUN/CREATININE RATIO 17 RATIO (6-26); CALCIUM 9.1 MG/DL (8.4-10.2); CHLORIDE 105 MEQ/L (98-107); CO2 - CARBON DIOXIDE 28 MEQ/L (22-30); CREATININE 0.7 MG/DL (0.7-1.2); GLOMERULAR FILTRATION RATE 82; GLUCOSE 98 MG/DL (65-110); POTASSIUM 4.2 MEQ/L (3.6-5); SODIUM 143 MEQ/L (134-144)
--- NOTE | 2016-05-19 06:09 | NUR ---
PRN PT GIVEN PRN ATIVAN. PT HAS USED CALL LIGHT SEVERAL TIMES TO REPORT SHE WAS SHAKING. PT WAS ABLE TO BE COMFORTED WITH REPOSITIONING. PT CONTINUES TO REPORT FEELING SHAKY AND REQUEST MEDICATION TO HELP. PT GIVEN PRN MEDICATION SEE EMAR.
--- NOTE | 2016-05-19 06:15 | NUR ---
SHIFT SUMMARY PT ALERT AND ORIENTED X3. AT START OF SHIFT PT WAS SHAKING AND STUTTERING DURING ASSESSMENT. PT AMBULATED TO RESTROOM WITH STAFF USING WALKER AND GAIT BELT WITH MINIMAL ASSISTANCE REQUIRED. SEE STATUS NOTES. PT HAD INTERMITTENT EPISODES OF TREMORS AND STUTTERING. PT ON SEVERAL OCCASIONS USED CALL LIGHT TO INFORM STAFF SHE WAS HAVING TREMORS PT WAS ABLE TO BE REPOSITIONED AND COMFORTED. UPON REASSESSING PT AFTER THESE EPISODES PT WAS FOUND TO BE SLEEPING. TOWARD END OF THIS RN SHIFT PT AGAIN HAD COMPLAINT OF TREMORS AND REQUESTED SOMETHING TO HELP SEE EMAR FOR PRN MEDICATION.
[2016-05-19 08:00] VITALS: BP 151/66; PULSE 77; RESP 22; TEMP 98.2; O2SAT 95
[2016-05-19] MEDS: PRIMIDONE 50 MG TABLET PO SCH ×2 (09:00→20:34)
[2016-05-19] MEDS: MULTIVIT + MINERALS (OPTI-GEN) PO SCH (09:00)
--- NOTE | 2016-05-19 10:22 | CONSPD ---
LITO ESTEVEZ V EDUCATIONAL INTERPRETER 05/19/16 1020: Consultation Info Date DATE: 05/19/16 TIME: 10:15 Date of Consultation: May 19, 2016 Attending Physician: Brisa Reason for Consultation: Tremors, Dysphagia HPI - Adult Date DATE: 05/19/16 TIME: 10:15 General Chief Complaint: Essential Tremors, Anxiety History of Present Illness Patient is a 75-year-old female who was admitted acutely to [facility] on for essential tremor. She was started on primidone initially 25 milligrams twice a day and then increased to 50 milligrams twice a day. Unfortunately she continued to have persistent tremors. Along with these tremors she had gait instability, dysphasia and overall functional decline. She was accepted to the inpatient rehabilitation unit for ongoing strengthening for function improvement and stability. Basic laboratory studies were obtained this morning. The WBC count 5.9, hemoglobin 13.4, hematocrit 41.4, platelet count 237. Sodium is 143, potassium 4.2, BUN 12, creatinine 0.7, glucose 98. Blood pressure this morning is mildly elevated at 151/66, pulse 77, temperature 98.2, room air saturations 95%. Shelley is seen this morning for initial consultation while eating breakfast. She is noted to have moderate tremors during examination. Staff notes that tremors seem to worsen with social interaction with others will patient does appear more anxious during these times. Shelley denies having any shortness of breath, she does complain of having some paraspinal thoracic discomfort that she describes as muscle tightness. She does request to use topical Aspercreme as she does utilize this at home. Past Medical History Past Medical History Essential Tremor HTN Anxiety Depression Osteoarthritis Obesity Surgical History Patient's Surgical History: Exploratory hip surgery Current Medications Home Meds Active Scripts Lorazepam (Lorazepam) 2 Mg/1 Ml Vial, 1 MG IV Q4H Y for tremor/anxiey , #10 Prov:LENKA CASTRO MD 05/18/16 Lorazepam (Ativan) 0.5 Mg Tablet, 0.5 MG PO Q6HR Y for ANXIETY/AGITATION, #15 TAB Prov:LENKA CASTRO MD 05/18/16 Primidone (Mysoline) 50 Mg Tablet, 25 MG PO BID, #30 TAB Prov:LENKA CASTRO MD 05/18/16 Propranolol HCl (Propranolol HCl) 10 Mg Tablet, 10 MG PO BID, #60 TAB Prov:LENKA CASTRO MD 05/18/16 Reported Medications Acetaminophen (Acetaminophen) 500 Mg Tablet, 500-1000 MG PO Q8H Y for PAIN 05/16/16 Antiox #11/Om3/Dha/Epa/Lut/Velasquez (Eye Health Adult 50+ Softgel) 1 Each Capsule, 1 CAP PO DAILY 05/16/16 Clonazepam (Clonazepam) 0.5 Mg Tablet, 0.5 TAB PO Q8H Y for PRN ORDERS 05/16/16 Citalopram Hydrobromide (Citalopram HBr) 20 Mg Tablet, 20 MG PO DAILY 05/16/16 Lisinopril (Lisinopril) 10 Mg Tablet, 10 MG PO DAILY 11/17/13 Discontinued Reported Medications Primidone (Primidone) 50 Mg Tablet, 50 MG PO BID 05/16/16 Allergies: Coded Allergies: Penicillins (Verified Allergy, Unknown, 05/16/16) Uncoded Allergies: UNKNOWN OTHER MEDS (Allergy, Unknown, 05/16/16) Family History Family History: Noncontributory Social History Smoking Status: Never smoker Does patient use chewing tobac: No Marital Status: Single Housing: apartment Household Members: none Current Occupational Status: retired Advance Directives: Yes DNR, Yes DPOA for Healthcare Only Social History Comments PCP Dr Galvez. Review of Systems Musculoskeletal General: see HPI Lumbar: spasm (Mid thorax muscle spasms) Neurological General: tremor All Other Systems All Other Systems: Reviewed (remainder of 10-point ROS Neg.) Physical Exam General General Nourishment: well nourished, well developed Vital Signs Vital Signs Date Time Temp Pulse Resp B/P Pulse Ox O2 Delivery O2 Flow Rate FiO2 05/19/16 08:00 98.2 77 22 151/66 95 Room Air Height (Feet): 5 Height (Inches): 2.00 Eyes Brief: FOUND: EOMI, PERRL ENMT Brief: FOUND: mucosa moist, normal dentition, NOT FOUND: pharnyx erythema Respiratory Brief: FOUND: clear all [place], equal bilaterally, NOT FOUND: wheezes Abdomen (brief) Abdominal Brief: FOUND: BS normo active x4, soft Integumentary (brief) Integumentary Brief: FOUND: dry, pink, warm Neurologic (brief) Neurological Brief: FOUND: cranial 2-12 intact Comments Bilateral upper ext tremors Neurologic RN Documented GCS Eye Opening: Verbal: Motor: Total: Psychiatric (brief) FOUND: alert, attentive, normal affect, oriented Laboratory Laboratory Tests Test 05/19/16 04:55 White Blood Count 5.9T/MM3 Red Blood Count 4.07M/MM3 Hemoglobin 13.4GM/DL Hematocrit 41.1% Mean Corpuscular Volume 101.0UM3 Mean Corpuscular Hemoglobin 32.9UUG Mean Corpuscular Hemoglobin Concent 32.6GM/DL RDW Standard Deviation 47.2FL Platelet Count 237T/MM3 Mean Platelet Volume 9.7UM3 Immature Granulocyte % (Auto) 0.2% Neutrophils (%) (Auto) 33.5% Lymphocytes (%) (Auto) 53.5% Monocytes (%) (Auto) 9.4% Eosinophils (%) (Auto) 2.9% Basophils (%) (Auto) 0.5% Absolute Immature Granulocyte (auto 0.01T/MM3 Absolute Neutrophils (auto) 2.0T/MM3 Absolute Lymphocytes (auto) 3.2T/MM3 Absolute Monocytes (auto) 0.6T/MM3 Absolute Eosinophils (auto) 0.2T/MM3 Absolute Basophils (auto) 0.0T/MM3 Turbidity < 20 Sodium Level 143MEQ/L Potassium Level 4.2MEQ/L Chloride Level 105MEQ/L Carbon Dioxide Level 28MEQ/L Anion Gap 10MEQ/L Blood Urea Nitrogen 12.0MG/DL Creatinine 0.7MG/DL Glomerular Filtration Rate Calc 82 BUN/Creatinine Ratio 17RATIO Glucose Level 98MG/DL Calculated Osmolality 275MOSM/KG Calcium Level 9.1MG/DL Icterus Index < 2 Chemistry Specimen Hemolysis < 15 Impression/Recommendation Problems: (1) Essential tremor Status: Acute (2) Declining functional status Status: Acute (3) Dysphagia Status: Acute (4) Gait instability Status: Acute (5) HTN (hypertension) Status: Chronic (6) Anxiety Status: Chronic (7) Depression Status: Chronic (8) Osteoarthritis Status: Chronic (9) Obesity (BMI 30-39.9) Status: Chronic Recommendation Agree with admission to IRU for ongoing therapy given functional decline and gait instability Continue [facility] current medication regimen for treatment of essential tremors, including primidone 25 milligrams twice a day, propranolol 10 milligrams twice a day and Ativan both oral and IV as needed. Place. Neurologic consultation to Dr. Yi for further evaluation and recommendations. Continue with lisinopril 10 milligrams daily and monitor blood pressure. Blood pressure this morning was borderline elevated at 151/66. If she continues to have hypertension may consider adding a low-dose Norvasc. Will continue to monitor. Aspercreme as needed topically for muscle spasms. Consult with PT and OT for ongoing strengthening. In regards to dysphagia consult speech therapy Appreciate medical consultation, the hospitalist services will follow patient medically manage her existing comorbidities during her stay. At time of discharge medical care will return to primary care provider. Dr. Galvez with [facility] LENKA CASTRO MD 05/19/162028: Past Medical History Current Medications Home Meds Active Scripts Lorazepam (Lorazepam) 2 Mg/1 Ml Vial, 1 MG IV Q4H Y for tremor/anxiey , #10 Prov:LENKA CASTRO MD 05/18/16 Lorazepam (Ativan) 0.5 Mg Tablet, 0.5 MG PO Q6HR Y for ANXIETY/AGITATION, #15 TAB Prov:LENKA CASTRO MD 05/18/16 Primidone (Mysoline) 50 Mg Tablet, 25 MG PO BID, #30 TAB Prov:LENKA CASTRO MD 05/18/16 Propranolol HCl (Propranolol HCl) 10 Mg Tablet, 10 MG PO BID, #60 TAB Prov:LENKA CASTRO MD 05/18/16 Reported Medications Acetaminophen (Acetaminophen) 500 Mg Tablet, 500-1000 MG PO Q8H Y for PAIN 05/16/16 Antiox #11/Om3/Dha/Epa/Lut/Velasquez (Eye Health Adult 50+ Softgel) 1 Each Capsule, 1 CAP PO DAILY 05/16/16 Clonazepam (Clonazepam) 0.5 Mg Tablet, 0.5 TAB PO Q8H Y for PRN ORDERS 05/16/16 Citalopram Hydrobromide (Citalopram HBr) 20 Mg Tablet, 20 MG PO DAILY 05/16/16 Lisinopril (Lisinopril) 10 Mg Tablet, 10 MG PO DAILY 11/17/13 Discontinued Reported Medications Primidone (Primidone) 50 Mg Tablet, 50 MG PO BID 05/16/16 Allergies: Coded Allergies: Penicillins (Verified Allergy, Unknown, 05/16/16) Uncoded Allergies: UNKNOWN OTHER MEDS (Allergy, Unknown, 05/16/16) Impression/Recommendation Recommendation Have independently interviewed and examined pt. Chart reviewed. Case discussed with my EDUCATIONAL INTERPRETER. Care plan developed with my supervision; agree with above. Doing well today-had big day of therapy. Did lots and lots of activities-went well. Tired this evening from the work, but awake and alert. Eating well. Breathing well. No ab pain or nausea. Lungs: clear CV: regular AB; soft nt/nd BS present MSE: awake alert Neuro: Shaky all over (increased when I came to door). Plan: Inpatient rehabilitation due to pt functional decline. Neuro and Psych consult initiated. Encourage therapy. Continue lisinopril for BP control. Continue Primidone and Propranolol to help with tremors. Medically stable for IRU floor activities. LITO ESTEVEZ APRN May 19, 2016 10:20 LENKA CASTRO MD May 19, 2016 20:29
[2016-05-19] MEDS: LISINOPRIL 10 MG TABLET PO SCH (10:46)
[2016-05-19] MEDS: DOCUSATE SODIUM 100 MG CAPSULE PO SCH ×2 (10:46→20:33)
[2016-05-19] MEDS: PROPRANOLOL 10 MG TABLET PO SCH ×2 (10:47→20:34)
--- NOTE | 2016-05-19 11:19 | STEVAL ---
Communication Facial symmetry at rest: WFL (generalized weakness) Facial symmetry with smile: moves involuntarily (mild tremor) Tone of lips: normal Tongue at rest: normal Tone of tongue: decreased (mild) Palatal Elevation: normal Basic Oral Peripheral Comment Generalized weakness, mild tremor and reduced coordination noted. Respiration at rest: shallow Speed of respiration at rest: normal Respiration during speech: shallow Voice Quality: intermittent Pitch Breaks: do not occur Intelligibility Words: Intelligibility was moderately reduced by dysfluency Intelligibility Phrase: mild to moderately reduced due to dysfluency Intelligibility Conversation: moderately reduced duet o dysfluency, delay Expression Abilities: Repeats words, Repeats phrases, Communicates w/ sentences , Naming objects / pictures, Formulates Sentences Verbal Expression Comment Pt names items and formulates sentences but intelligibility in reduced secondary to dysfluency. Level of dysfluency fluctuates during conversation. Spontaneous Speech Fluency: nonfluent Repetition: Yes Object Naming: Yes Confrontation Naming: Yes (with delay) Word Fluency: No Automatic Speech: No (dysfluent) Storing Telling: No Aphasia Comment Delay noted in processing information. Writes/sign name: Yes Copies numbers: Yes Copies letters: Yes Copies sentences: Yes Writes object names: Yes Social Interaction: Initiates interaction, Responds to others Assessment/Plan of Care Speech Therapy Impressions: Aphasia Language Performance Scale results: Auditory comprehension: 7/10 with moderate delay Verbal expression: 6/10 with significant dysfluency, reduced intelligibility Reading comprehension: 9.5/10 large print Written expression: 7/10, letters, words and phrases only Watch Assembler Goals: 1. Pt will express needs and wants in a variety of communication settings. 2. Pt will understand basic conversation. 3. Pt will improve breath support for speech. Short Term Objectives: 1. Pt will formulate sentences to describe event or activity with 90% accuracy 2. Pt will listen to short story and recall 3/5 facts with 90% accuracy. 3. Pt will complete diaphragmatic breathing ex with inhalation (6 seconds) and exhalation 8 seconds on 8/[address] Treatment Plan: Communication Retraining, Breathing Exercises ST Treatment Plan Frequency: five times per week Treatment Plan Duration: one week Plan of Care Comment Communication Retraining 5x a week x1 week Date of Visit 05/19/16 Time Visit Began: 10:15 Time Visit Ended: 10:50 ST Assess/Plan of Care: ST Treatment Charge: Speech Eval Minutes of Individual Therapy: 40 ST FIM Comprehension Ability: 3 Moderate Assistance Social Interaction: 4 Minimal Assistance Memory: 3 Moderate Assistance Expression Ability: 3 Moderate Assistance ESTRELLA DRISCOLL MS CCC-DATA COMMUNICATIONS ANALYST May 19, 2016 11:00
--- NOTE | 2016-05-19 11:26 | CONSF ---
NEUROLOGY CONSULTATION DATE 05/19/[address] Salgado PATIENT'S CHIEF COMPLAINT Tremor. HISTORY OF PRESENT ILLNESS Patient is a 75-year-old female with history of essential tremor recently treated with primidone. The patient was having difficulty increasing her primidone due to GI side effects. She presented to [facility] with a fast progressing tremor and jerkiness affecting her trunk, legs and arms. She has had difficulty controlling her movement and using her extremities due to tremor. Her voice has been very stuttering and slow due to the tremor. The patient was not started on any new medication besides her tremor medication. Her symptoms seem to be worse with attention and they seem to improve with distraction. The patient's lab work has been unremarkable. She had an MRI of the brain that showed no acute intracranial abnormality and overall normal findings. Her vital signs has been stable overall with blood pressure in the range of 140-150/70 and 80. The patient has no known history of anxiety disorder or alcohol abuse. PHYSICAL EXAMINATION The patient was awake, alert, oriented x 1. She has had some difficulty expressing herself and providing useful information. Her body has been jerking continuously nonstop, especially affecting the trunk and legs in addition to the head. She has had no significant arm tremor or finger tremors. Her motor strength was 5-/5 bilaterally. Sensory examination was symmetrical to light touch and pinprick. Deep tendon reflexes were 2/4. Plantar reflexes were downgoing bilaterally. Coordination for [id number] was slightly slower on the left compared to the right. She has had no significant rigidity or bradykinesia. Patient's tremor seemed to be attenuated with distraction and having the patient do certain intellectual functioning and skills. ASSESSMENT AND PLAN 1. Intractable diffuse body jerking and tremor, most likely related to anxiety disorder. 2. Essential tremor is less likely in this clinical setting. The patient could have had a history of essential tremor but this should not cause this significant presentation. The patient has responded well to antianxiety medication including Ativan. PLAN 1. Increase the clonazepam to 0.5 mg p.o. q.8h. on a regular basis. 2. Continue primidone 25 mg p.o. b.i.d. This can be increased to t.i.d. or q.i.d. for hand and finger tremor in particular. 3. Rely less on the Ativan as the clonazepam was increased. 4. Obtain a psych consultation for anxiety. 5. The patient has been complaining of lower back pain which seemed to trigger some of her anxiety and tremor. Consider usage of gabapentin 300 mg p.o. b.i.d. to t.i.d. for lower back pain and jerkiness if symptoms persist. Thank you. ZACKARY
--- NOTE | 2016-05-19 13:26 | STEVAL ---
Eval Subjective and History Date/Time of Eval DATE: 05/19/16 TIME: 08:57 Medical Diagnosis Essential Tremors Treatment Order: Assessment, Dev./Imp. tx plan Orientations: Person, Place, Cooperative Primary Complaint: Essential Tremors Pain: No (Pt. reported having no pain. ) Secondary Complaint: Stuttering, Dysphagia Patient's Goals: Pt. reported no goals Significant Past Medical Hx: Dysarthria, Dysphagia, Declining Functional Status, Gait Instability, Hypertension, Depression, Anxiety, Osteoarthritis, Obesity Medical History Form Reviewed: Yes Residence Type: Private home/apartment ([facility]) Lives With: Alone Education Subject: Diet Person(s) Educated: Patient Instruction Understanding Demo: Pt. verbalizes understand Education Comment PUTTY TINTER MAKER educated patient on reasoning for evaluation. Patient was agreeable to evaluation. Subjective and History Comment: Pt. was met in the dining room to eat breakfast. Pt. was in a pleasant mood and agreed to having foreign student adviser, Krysta, complete assessment while being supervised by TORY Wren. Pt. noted to have flucuating stutter and tremor during evaluation. Dysphagia Evaluation Evaluation Location: Chair Evaluation Angle: 90 Oral Peripheral Exam-facial: Facial Symmetry: No Impairment (WFL) Tongue Elevation: Minimal Impairment Tongue Lateralization: Minimal Impairment Tongue Protrusion: Minimal Impairment Tongue Retraction: Minimal Impairment Tongue Extension Midline: Minimal Impairment Labial Approximation: No Impairment (WFL) Intraoral Air Pressure: No Impairment (WFL) Volitional Cough: No Impairment (WFL) Palatal Elevation: Minimal Impairment Larynx Elevation During Swallo: Minimal Impairment Saliva Control: No Impairment (WFL) Dentition: Dentures, Upper, Lower Lip Seal: Adequate-liquid, Adequate-solid Lingual Manipulation: Adequate-liquid, Adequate-solid Chewing: Adequate-liquid, Adequate-solid Oral cavity clear post swallow: Adequate-liquid, Adequate-solid Swallow initiated w/o delay: Adequate-liquid, Adequate-solid Multiple swallows not needed: Adequate-liquid, Adequate-solid Voice clear&dry post swallow: Adequate-liquid, Adequate-solid No cough/throat clear: Adequate-liquid (nectar thick liquid), Inadequate- liquid (thin water), Adequate-solid Assessment/Plan of Care Speech Therapy Impressions: Pt. first completed an oral mechanism exam. Pt. presented with tremors and required the clinician to repeat her directions X2 for each task while providing a visual prompt. Pt. demonstrated adequate labial closure at rest and minimally impaired lingual manipulation. Pt. produced a 3-4 second "ah" exhibiting a quiet and hoarse vocal quality. Reduced palatal elevation and laryngeal elevation were present during assessment. Next a dysphagia assessment was completed. Pt. was given her breakfast (mechanical soft diet) consisting of cut-up pancake, cubed potatoes, ground sausage, nectar thick ice tea, nectar thick cranberry juice. Thin water was also trialed during assessment. Pt. was instructed to take a drink of iced tea. Reduced laryngeal elevation was present; however, patient reported having no difficulties swallowing. Trials of pancake, potatoes, and sausage were alternated. Pt. demonstrated adequate lingual manipulation/chewing with these consistencies. Pt. alternated between nectar thick iced tea and thin water. Pt. produced a cough on thin water; however, no other s/s of aspiration were demonstrated. Trials of thin water were discontinued. It is recommended Pt. continue with current diet and nectar thick liquids at this time. Recommendations include: 1. Continue mechanical soft diet with nectar thick liquids 2. Swallow precautions: alternate between solids/liquids, take small bites/sips, sit upright during and after meals Wet And Dry Sugar Bin Operator Goal: Pt will maintain nutrition and hydration of the least restrictive diet while demonstrating no s/s of aspiration for 5 consecutive trials. Short Term Goal: Pt will consume a soft/chopped diet consistency with thin liquids without outward signs of aspiration at bedside in 85% of trials. Pt will demonstrate 3 out of 4 components necessary for a safe swallow as listed from the following: small bites/sips, alternate between solids/liquids, sit upright during/after meals. ST Treatment Plan: Swallow Precautions, Modified Diet (Mechanical Soft, nectar thick liquids ) ST Treatment Plan Frequency: five times per week Treatment Plan Duration: one week Plan of Care Comment Speech Therapy: 5X/week for a total of 30 minutes Recommended Diet: Continue Mechanical Soft Diet, [place] thick liquids Date of Visit 05/19/16 Time Visit Began: 08:24 Time Visit Ended: 09:54 ST Assess/Plan of Care: ST Treatment Charge: Swallow Eval Minutes of Individual Therapy: 30 ST FIM Comprehension Ability: 4 Minimal Assistance Social Interaction: 4 Minimal Assistance Problem Solvin Minimal Assistance Memory: 4 Minimal Assistance Expression Ability: 3 Moderate Assistance Swallowin Minimal Assistance KRYSTA WALDROP May 19, 2016 09:01
--- NOTE | 2016-05-19 14:20 | HPPDOC ---
HPI Date DATE: 05/19/16 TIME: 14:11 General Chief Complaint: Essential Tremors, Anxiety History of Present Illness 75 yo female with hx of Essential Tremor. Pt has severe enough sx, that she has lost weight, developed instability walking and was falling at home.T remor worsens sig with fatigue and anxiety. She was started on Primidone and PT and OT worked with her on inpatient. She is unsafe to return home and continues to need medication adjustment. Past Medical History Past Medical History Essential Tremor HTN Anxiety Depression Osteoarthritis Obesity Surgical History Patient's Surgical History: Exploratory hip surgery Current Medications Home Meds Active Scripts Lorazepam (Lorazepam) 2 Mg/1 Ml Vial, 1 MG IV Q4H Y for tremor/anxiey , #10 Prov:LENKA CASTRO MD 05/18/16 Lorazepam (Ativan) 0.5 Mg Tablet, 0.5 MG PO Q6HR Y for ANXIETY/AGITATION, #15 TAB Prov:LENKA CASTRO MD 05/18/16 Primidone (Mysoline) 50 Mg Tablet, 25 MG PO BID, #30 TAB Prov:LENKA CASTRO MD 05/18/16 Propranolol HCl (Propranolol HCl) 10 Mg Tablet, 10 MG PO BID, #60 TAB Prov:LENKA CASTRO MD 05/18/16 Reported Medications Acetaminophen (Acetaminophen) 500 Mg Tablet, 500-1000 MG PO Q8H Y for PAIN 05/16/16 Antiox #11/Om3/Dha/Epa/Lut/Velasquez (Eye Health Adult 50+ Softgel) 1 Each Capsule, 1 CAP PO DAILY 05/16/16 Clonazepam (Clonazepam) 0.5 Mg Tablet, 0.5 TAB PO Q8H Y for PRN ORDERS 05/16/16 Citalopram Hydrobromide (Citalopram HBr) 20 Mg Tablet, 20 MG PO DAILY 05/16/16 Lisinopril (Lisinopril) 10 Mg Tablet, 10 MG PO DAILY 11/17/13 Discontinued Reported Medications Primidone (Primidone) 50 Mg Tablet, 50 MG PO BID 05/16/16 Allergies: Coded Allergies: Penicillins (Verified Allergy, Unknown, 05/16/16) Uncoded Allergies: UNKNOWN OTHER MEDS (Allergy, Unknown, 05/16/16) Family History Family History: Noncontributory Social History Smoking Status: Never smoker Does patient use chewing tobac: No Marital Status: Single Housing: apartment Household Members: none Current Occupational Status: retired Advance Directives: Yes DNR, Yes DPOA for Healthcare Only Review of Systems Constitutional: REPORTS: weakness, weight loss Cardiovascular dyspnea on exertion Pulmonary Respiratory: dyspnea General: see HPI Musculoskeletal General: see HPI Neurological General: see HPI All Other Systems All Other Systems: Reviewed Physical Exam General General Nourishment: well developed, adult General Body Habitus: well groomed Vital Signs Vital Signs Date Time Temp Pulse Resp B/P Pulse Ox O2 Delivery O2 Flow Rate FiO2 05/19/16 08:00 98.2 77 22 151/66 95 Room Air Height (Feet): 5 Height (Inches): 2.00 Telemetry Rhythm: Sinus Rhythm Eyes Brief: FOUND: EOMI, PERRL Neck Brief: NOT FOUND: adenopathy, thyromegaly Respiratory Brief: FOUND: clear all [place], equal bilaterally Abdomen (brief) Abdominal Brief: FOUND: BS normo active x4, soft, NOT FOUND: tender Musculoskeletal (brief) Comments tremor at rest noted bilat. Neurologic RN Documented GCS Eye Opening: Verbal: Motor: Total: Laboratory Laboratory Tests Test 05/19/16 04:55 White Blood Count 5.9T/MM3 Red Blood Count 4.07M/MM3 Hemoglobin 13.4GM/DL Hematocrit 41.1% Mean Corpuscular Volume 101.0UM3 Mean Corpuscular Hemoglobin 32.9UUG Mean Corpuscular Hemoglobin Concent 32.6GM/DL RDW Standard Deviation 47.2FL Platelet Count 237T/MM3 Mean Platelet Volume 9.7UM3 Immature Granulocyte % (Auto) 0.2% Neutrophils (%) (Auto) 33.5% Lymphocytes (%) (Auto) 53.5% Monocytes (%) (Auto) 9.4% Eosinophils (%) (Auto) 2.9% Basophils (%) (Auto) 0.5% Absolute Immature Granulocyte (auto 0.01T/MM3 Absolute Neutrophils (auto) 2.0T/MM3 Absolute Lymphocytes (auto) 3.2T/MM3 Absolute Monocytes (auto) 0.6T/MM3 Absolute Eosinophils (auto) 0.2T/MM3 Absolute Basophils (auto) 0.0T/MM3 Turbidity < 20 Sodium Level 143MEQ/L Potassium Level 4.2MEQ/L Chloride Level 105MEQ/L Carbon Dioxide Level 28MEQ/L Anion Gap 10MEQ/L Blood Urea Nitrogen 12.0MG/DL Creatinine 0.7MG/DL Glomerular Filtration Rate Calc 82 BUN/Creatinine Ratio 17RATIO Glucose Level 98MG/DL Calculated Osmolality 275MOSM/KG Calcium Level 9.1MG/DL Icterus Index < 2 Chemistry Specimen Hemolysis < 15 Assessment & Plan Problems: (1) Gait instability Status: Acute Assessment & Plan: PT and OT to develop plan of care. (2) Essential tremor Status: Acute Assessment & Plan: COnt with primidone adjustment per medical. (3) Declining functional status Status: Acute Assessment & Plan: PT and OT to work with pt and assist in strengthening and increasing stability when ambulating. DVT Prophylaxis: SCD'S Code Status Do Not Resuscitate Interventions to Obtain Goals PT Treatment Plan: Therapeutic Exercise, Gait Training, Functional Activities , Patient/Family Education, Balance/Proprioception OT Treatment Plan: ADL's (basic care), Ther. Exercise for ADL's, UE Functional Training, Balance Training, Pt./Family Education, IADL's ST Treatment Plan: Swallow Precautions, Modified Diet (Mechanical Soft, nectar thick liquids ) Hospital Course Summary Disclaimer The hospital course summary below is not to be considered part of the above Progress Note. DENNIS BLANCO MD May 19, 2016 14:15
--- NOTE | 2016-05-19 14:22 | IRU24PDOC ---
24 Hour Post Admission Eval Relevant Changes Relevant Changes: No I have reviewed the patient's information and concur with the finding and results of the pre-admission screen. Certification I certify the patient for rehabilitation. Patient Condition Prior Medical Conditions: (1) Gait instability Status: Acute Additional Information: PT and OT to develop plan of care. (2) Essential tremor Status: Acute Additional Information: COnt with primidone adjustment per medical. (3) Declining functional status Status: Acute Additional Information: PT and OT to work with pt and assist in strengthening and increasing stability when ambulating. Current Medical Conditions: (1) Gait instability Status: Acute Additional Information: PT and OT to develop plan of care. (2) Essential tremor Status: Acute Additional Information: COnt with primidone adjustment per medical. (3) Declining functional status Status: Acute Additional Information: PT and OT to work with pt and assist in strengthening and increasing stability when ambulating. Prior Functional Condition Lives With: Alone Residence Type: Private home/apartment ([facility]) Assistive Devices: Front Wheeled Walker, 4-Wheeled Walker Prior Functional Status: Indep. at home or school Current Functional Status Patient Requirements * Patient has been determined to have significant functional limitations requiring at least two therapy disciplines. * Rehabilitation medical practitioner will provide admission approval, assessment and oversight and program coordination at least daily. * Intensive rehabilitative nursing services on site and available 24 hours a day. * The treatment plan will be developed within 24 hours of admission. * Interdisciplinary and goal oriented treatment by professional nursing, social worker psychiatric, and rehabilitation therapist. * Interdisciplinary team meeting weekly inclusive of ongoing comprehensive discharge planning. First team meeting by day seven. Weekly meetings to follow. * Rehab Physician is the team meeting leader. * Pharmacy and diagnostic services will be available. * Ongoing comprehensive rehab program with at least 2 disciplines and greater than or equal to 3 hours a day, 5 days a week. Limitations require: limited mobility, ADL impairment Physical Therapy Minutes: 90 Occupational Therapy Minutes: 90 Therapy The patient is to receive therapy at least 5 days a week. Current Functional Status: Using assistive device PT Treatment Plan: Therapeutic Exercise, Gait Training, Functional Activities , Patient/Family Education, Balance/Proprioception Treatment Plan Frequency: five times per week Treatment Plan Duration: two weeks Plan of Care Comment: 6x/week for first week, 5x/week for following weeks OT Treatment Plan: ADL's (basic care), Ther. Exercise for ADL's, UE Functional Training, Balance Training, Pt./Family Education, IADL's OT Treatment Plan Frequency: five times per week OT Treatment Plan Duration: three weeks ST Treatment Plan: Swallow Precautions, Modified Diet (Mechanical Soft, nectar thick liquids ) ST Treatment Plan Frequency: five times per week Treatment Plan Duration: one week ROM Comment: B/L LE WNL See OT for UEs. Muscle Weakness Location: Left Lower Extremity, Right Lower Extremity Complication/Comorbidities Patient Complication Risk: (1) Gait instability Status: Acute Comments: PT and OT to develop plan of care. (2) Essential tremor Status: Acute Comments: COnt with primidone adjustment per medical. (3) Declining functional status Status: Acute Comments: PT and OT to work with pt and assist in strengthening and increasing stability when ambulating. Impact on Functional Outcomes Pt should be able to progress to pre admit stability and endurance with assist from PT and OT. Barriers to Discharge: weakness, endurance, balance, medical stability Plan to Avoid Complications Plan to Avoid Complications The patient cannot receive this care in a lesser intensive setting such as [facility] or Outpatient Therapy due to the patient requiring the following debility and progressive weakness due to sx from severe essential tremor. The patient requires oversight by a rehabilitation physician to manage their rehabilitation treatment plan and the multidisciplinary approach to care that can only be provided in an IRF and requires a multidisciplinary approach to care , provided by professional PTs, OTs, STs, dieticians, RTs, rehabilitation nurses and is not available in lesser levels of care. The frequency and duration for therapy, as recommended by the professional Rehabilitation therapists, meet the patient's initial rehabilitation treatment plan needs and will be further evaluated on a weekly basis for progress and/or changes needed. DENNIS BLANCO MD May 19, 2016 14:22
[2016-05-19 16:00] VITALS: BP 141/66; PULSE 85; RESP 18; TEMP 97.9; O2SAT 95
[2016-05-19] MEDS: CLONAZEPAM 0.5 MG TABLET PO SCH (17:38)
--- NOTE | 2016-05-19 17:46 | CONSPD ---
[facility] 05/19/16 Time of Service: 17:20 Start Time: 17:20 Stop Time: 18:19 >50% of this visit spent in counseling/coordination care. Reason for Consultation: Anxiety History of Present Illness Patient is a 75-year-old, female, who has history of mild intellectual disability and was admitted to the hospital on 05/19/16 for severe non-abating tremors of both her upper and lower limbs. Psychiatry was consulted for management of anxiety. 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 Both did not show any acute changes. Patient is currently on Primidone 25mg BID, Celexa 20mg daily, Clonazepam 0.5mg BID. Staff reports that her tremors appears to subside whenever patient is distracted and she could go on for some minutes without any tremors, but if often returns back with visible shakiness of both her upper and lower limbs. There is report of family history of Parkinson disease in her brother .She was seen to be alert and oriented to time,place and person. Patient reports that the symptoms started abruptly on December 20 2015 while she was shopping at a [employer]. She suddenly froze and was unable to move for some minutes and she had to use motorized cart to do her shopping. This later changed to shakiness which subsequently became more pronounced . Her family finally took her to see physician when it began affecting her sleep and her ability to feed her self as she could no longer place food in her mouth without spilling it. Patient was able to see a neurologist in April who diagnosed her with Essential tremor and started her on Primidone. She has not been able to tolerate the later because of diarrhea. Patient and family reports no significant effect from Primidone. She denies any rigidity or recent postural instability. Family reports that patient has always use some kind of walking throughout her adulthood. However, patient was noted to have jumpy ataxic gait on ambulation and requires staff assistance with gait belt for ambulation. Her sister-in law reports that patient was diagnosed with mild intellectual disability about 10 years ago and she has also been on Citalopram for about the same duration. Patient reports been stressed out by her twin sister, which seems to exacerbate the shakiness. She denies increase worrying and denies increase anxiety. Patient also denies any change in appetite or energy and she denies any morbid thoughts, suicide ideations, intent or plans to hurt herself or some other person. Past Psyh Hx: No past suicide attempt or hx of anxiety disorder Family Hx: Brother has Parkinson's disease Social: She lives in [facility] Independent living apartments in [place] Depression: sleep disturbance Anxiety: poor concentration, sleep changes Past Medical History Past Medical History Essential Tremor HTN Anxiety Depression Osteoarthritis Obesity Surgical History Patient's Surgical History: Exploratory hip surgery Current Medications Home Meds Active Scripts Lorazepam (Lorazepam) 2 Mg/1 Ml Vial, 1 MG IV Q4H Y for tremor/anxiey , #10 Prov:LENKA CASTRO MD 05/18/16 Lorazepam (Ativan) 0.5 Mg Tablet, 0.5 MG PO Q6HR Y for ANXIETY/AGITATION, #15 TAB Prov:LENKA CASTRO MD 05/18/16 Primidone (Mysoline) 50 Mg Tablet, 25 MG PO BID, #30 TAB Prov:LENKA CASTRO MD 05/18/16 Propranolol HCl (Propranolol HCl) 10 Mg Tablet, 10 MG PO BID, #60 TAB Prov:LENKA CASTRO MD 05/18/16 Reported Medications Acetaminophen (Acetaminophen) 500 Mg Tablet, 500-1000 MG PO Q8H Y for PAIN 05/16/16 Antiox #11/Om3/Dha/Epa/Lut/Velasquez (Eye Health Adult 50+ Softgel) 1 Each Capsule, 1 CAP PO DAILY 05/16/16 Clonazepam (Clonazepam) 0.5 Mg Tablet, 0.5 TAB PO Q8H Y for PRN ORDERS 05/16/16 Citalopram Hydrobromide (Citalopram HBr) 20 Mg Tablet, 20 MG PO DAILY 05/16/16 Lisinopril (Lisinopril) 10 Mg Tablet, 10 MG PO DAILY 11/17/13 Discontinued Reported Medications Primidone (Primidone) 50 Mg Tablet, 50 MG PO BID 05/16/16 Allergies: Coded Allergies: Penicillins (Verified Allergy, Unknown, 05/16/16) Uncoded Allergies: UNKNOWN OTHER MEDS (Allergy, Unknown, 05/16/16) Family History Family History: Noncontributory Vaccines dec 2015fall Social History Smoking Status: Never smoker Does patient use chewing tobac: No Marital Status: Single Housing: apartment Household Members: none Current Occupational Status: retired Advance Directives: Yes DNR, Yes DPOA for Healthcare Only Review of Systems Constitutional: REPORTS: insomnia, weakness Eyes General: DENIES: burning ENMT Ears: DENIES: erythema Balance: ataxia Mouth/Throat: DENIES: change in swallowing, drooling Cardiovascular DENIES: dyspnea on exertion Vascular: DENIES: pallor of an extremity, varicosities Pulmonary Respiratory: DENIES: cough, dyspnea, tachypnea GI Upper Abdomen: DENIES: heartburn/indigestion, vomiting General: DENIES: cloudy urine, discharge Musculoskeletal General: pain Neurological General: ataxia, tremor, DENIES: memory disturbances Psychiatric Psychiatric: anxiety [facility] Exam Vitals Vital Signs Date Time Temp Pulse Resp B/P Pulse Ox O2 Delivery O2 Flow Rate FiO2 05/19/16 08:00 98.2 77 22 151/66 95 Room Air Physical examination performed by the hospitalist. Height (Feet): 5 Height (Inches): 2.00 Mental Status Exam Muscle Strength/Tone: Weak Dressing: Casual Attitude: Cooperative Motor Activity: Tremors, Fidgety Eye Contact: Fair Speech: Other (dysarthric) Rhythm: Dysarthric Orientation: Oriented to person, Oriented to place, Oriented to time Mood: Anxious Affect: Exaggerated Rate of Thoughts: Delayed Thought Organization: [place] Associations: Intact Abstract Reasoning: Impaired, concrete Computation: Poor Computation Thought Content: Normal Perception/Psychotic: Perception Normal Attention Span/Concentration: Normal Fund of Knowledge: Poor fund of knowledge Memory: Grossly Intact Suicidal Ideation: None Homicidal Ideation: None Insight: Poor Judgment: Poor Impulse Control: Poor Laboratory Tests Test 05/19/16 04:55 White Blood Count 5.9T/MM3 Red Blood Count 4.07M/MM3 Hemoglobin 13.4GM/DL Hematocrit 41.1% Mean Corpuscular Volume 101.0UM3 Mean Corpuscular Hemoglobin 32.9UUG Mean Corpuscular Hemoglobin Concent 32.6GM/DL RDW Standard Deviation 47.2FL Platelet Count 237T/MM3 Mean Platelet Volume 9.7UM3 Immature Granulocyte % (Auto) 0.2% Neutrophils (%) (Auto) 33.5% Lymphocytes (%) (Auto) 53.5% Monocytes (%) (Auto) 9.4% Eosinophils (%) (Auto) 2.9% Basophils (%) (Auto) 0.5% Absolute Immature Granulocyte (auto 0.01T/MM3 Absolute Neutrophils (auto) 2.0T/MM3 Absolute Lymphocytes (auto) 3.2T/MM3 Absolute Monocytes (auto) 0.6T/MM3 Absolute Eosinophils (auto) 0.2T/MM3 Absolute Basophils (auto) 0.0T/MM3 Turbidity < 20 Sodium Level 143MEQ/L Potassium Level 4.2MEQ/L Chloride Level 105MEQ/L Carbon Dioxide Level 28MEQ/L Anion Gap 10MEQ/L Blood Urea Nitrogen 12.0MG/DL Creatinine 0.7MG/DL Glomerular Filtration Rate Calc 82 BUN/Creatinine Ratio 17RATIO Glucose Level 98MG/DL Calculated Osmolality 275MOSM/KG Calcium Level 9.1MG/DL Icterus Index < 2 Chemistry Specimen Hemolysis < 15 Assessment and Plan (1) Dysarthria Assessment: r/o Parkinsonism. r/o Unspecified anxiety disorder Recommendation: 1. Patient presents with gait instability and intense shakiness with dysarthria. This may be some form of atypical Parkinsonism. 2. Her shakiness appears to worsen with anxiety about the tremor or any other stressor . She is already on Celexa for a long time I doubt if this may be contributing. 3. Patient may benefit from trial of Hydroxyzine 25mg BID and may increase to 25mg TID if she tolerates it 4. Will continue to follow patient Thank you for letting use participate in the care of this patient (2) Gait instability (3) Anxiety MAGI GARIBAY MD May 19, 2016 17:38
--- NOTE | 2016-05-19 18:13 | NUR ---
Shift summary Patient ambulating with FWW, gait belt min assist. Transfers with min assist, gait belt, FWW. Patient has intermittent tremors that are reduced with distraction and increase with attention to them. Stuttering speech at times, clear when tremors not present. Patient working with PT, OT, and ST. Dr. Yi saw patient today. Started clonazepam scheduled today. Dr. Wen consulted for anxiety. Visiting with patient and TERESA Bolden at this time. Patient continent of bowel and bladder. Patient had 2 loose BMs this shift. Wears pull ups. Wears glasses and dentures.
--- NOTE | 2016-05-19 19:08 | NUR ---
Status IVL and IV ativan d/cd per physician order.
[2016-05-19 20:04] VITALS: BP 119/64; PULSE 76; RESP 20; TEMP 97.6; O2SAT 93
[2016-05-20] MEDS: CLONAZEPAM 0.5 MG TABLET PO SCH ×3 (01:36→17:25)
--- NOTE | 2016-05-20 04:59 | NUR ---
Chart Check 24 hour chart check completed
--- NOTE | 2016-05-20 04:59 | NUR ---
Summary Pt had her daughter in law visit yesterday evening. Daughter in law called later in the night to check on the pt and spoke to pt and this nurse. Pt had tremors in the evening with company and during cares when getting ready for bed. Tremors not present while pt is sleeping and absent when waking to take scheduled 0130 med. Pt has slept soundly through the night, has denied pain and is sleeping at this time. Water and call light at bedside.
[2016-05-20 08:00] VITALS: PULSE 76; RESP 20
[2016-05-20 08:10] VITALS: BP 135/63; PULSE 68; RESP 20; TEMP 97.6; O2SAT 96
[2016-05-20] MEDS: PROPRANOLOL 10 MG TABLET PO SCH ×2 (08:49→20:17)
[2016-05-20] MEDS: DOCUSATE SODIUM 100 MG CAPSULE PO SCH ×2 (08:50→20:16)
[2016-05-20] MEDS: LISINOPRIL 10 MG TABLET PO SCH (08:50)
[2016-05-20] MEDS: MULTIVIT + MINERALS (OPTI-GEN) PO SCH (08:50)
[2016-05-20] MEDS: PRIMIDONE 50 MG TABLET PO SCH ×2 (08:51→20:16)
--- NOTE | 2016-05-20 10:49 | NUR ---
DYSPHAGIA DIET UPGRADED PATIENT UPGRADED TO THIN LIQUIDS CONTINUE WITH MECHANICAL SOFT DIET WITH GROUND MEATS
[2016-05-20] MEDS: TROLAMINE SALICYLATE 85 GM TUBE TOP PRN ×2 (12:40→18:34)
--- NOTE | 2016-05-20 12:57 | PNF ---
DATE 05/20/[address] Salgado PATIENT'S CHIEF COMPLAINT Tremor and jerkiness. HISTORY OF PRESENT ILLNESS The patient continues to have diffuse body jerking involving mainly her trunk and head. This has diminished partially after changing her clonazepam to scheduled dosing. The patient was also seen by psychiatry who recognized that the patient was having anxiety disorder. The patient has had some difficult relationship with her twin sister which caused her to become more agitated. The patient also has a known history of OCD that can be a triggering factor for her anxiety. She has done well with physical therapy. Her tremor seems to disappear when distracted, especially when walking and doing some activities. Her examination has not changed since yesterday. ASSESSMENT 1. Anxiety, driven diffuse body jerking and tremor-like activity. This is not part of the essential tremor disorder the patient has been treated for in the past. PLAN 1. Continue clonazepam 0.5 mg p.o. q.8h. This can be increased up to 1 mg p.o. q.8h. if symptoms keep progressing. 2. Consider starting patient on treatment for anxiety long-term including the usage of SSRI or trazodone. 3. Continue physical and occupational therapy. MTDD
--- NOTE | 2016-05-20 12:57 | STDAILYN ---
ST Daily Note Date/Time DATE: 05/20/16 TIME: 09:39 Subjective Comment Upon arrival, the clinicians met Shelley in the dining room for breakfast. Shelley reported her legs were hurting so clinicians positioned a pillow beneath feet, Pt. reported this was beneficial. Pt. had no other c/o pain or fatigue throughout the session. Shelley agreed to having graduate clinician, Krysta, provide therapy while being supervised by NON ACOUSTIC OPERATOR Holger. Orientations: Person, Place, Alert Chief Complaint: Essential Tremors, Stuttering, Dysphagia Pain: Yes (Pt. reported legs were hurting. Clinician positioned pillow beneath feet. Pt. reported this helped. ) Was Patient Education Provided: Yes Person(s) Educated: Patient Education Subject: Treatment Plan Instruction Understanding Demo: Pt. verbalizes understand Education Comment Pt. was educated on treatment plan. Pt. verbalized understanding. *Speech Therapy Impressions Machine Helper Goal: Pt will maintain nutrition and hydration of the least restrictive diet while demonstrating no s/s of aspiration for 5 consecutive trials. Short Term Goal: Pt will consume a soft/chopped diet consistency with thin liquids without outward signs of aspiration at bedside in 85% of trials. Pt will demonstrate 3 out of 4 components necessary for a safe swallow as listed from the following: small bites/sips, alternate between solids/liquids, sit upright during/after meals. Pt. was given her breakfast consisting of cut-up pancake, ground sausage, pudding, and gravy. Thin water and thin iced tea were trialed during this session. Pt. was given built up silverwar using a red foam tubing and a plate guard and was able to feed herself. Solids and liquids were alternated while taking small bites/sips. Pt. demonstrated adequate labial closure and lingual manipulation. Laryngeal elevation was within functional limits. Pt. exhibited no clinician s/s of aspiration with all consistencies. Nurse provided medications whole mixed in pudding. Pt. demonstrated no difficulties and nurse reported no issues. Recommended to upgrade Pt. to regular thin liquids, straws okay. ST Treatment Plan: Swallow Retraining, Modified Diet ST Treatment Plan Frequency: five times per week Treatment Plan Duration: one week Plan of Care Comment: Continue Plan of Care, recommended to upgrade liquids to regular thin liquids Start Treatment 1: 08:30 Stop Treatment 1: 09:10 Treatment Duration : ST Treatment Charge: Swallow Treatment Minutes of Individual Therapy: 40 ST FIM Comprehension Ability: 4 Minimal Assistance Social Interaction: 4 Minimal Assistance Problem Solvin Minimal Assistance Memory: 4 Minimal Assistance Expression Ability: 3 Moderate Assistance Swallowin Minimal Assistance KRYSTA WALDROP May 20, 2016 09:42
[2016-05-20 16:21] VITALS: BP 119/65; PULSE 64; RESP 20; TEMP 98; O2SAT 96
--- NOTE | 2016-05-20 16:37 | NUR ---
MARCELL GRANDE SCORE IS 7. Addendum: 05/20/16 at 1638 by ZEE MENDOZA Amended: Links added.
--- NOTE | 2016-05-20 16:40 | NUR ---
CM THIS WORKER VISITED PT IN ROOM, PT WAS IN CHAIR COMPLETING A PUZZLE. THIS WORKER INTRODUCED SELF AND ROLE OF CASE MANAGEMENT. PT STATED SHE HAS BEEN RESIDING AT [facility] IN [place], WHICH HER SISTER IS ON THE THIRD FLOOR. THIS WORKER DISCUSSED PLANS FOR DISCHARGE, PT STATED SHE DOES NOT KNOW HER PLANS ONCE SHE DISCHARGES AND SHE ASKED THIS WORKER TO CALL HER BROTHER, DERIK. PT STATED HER BROTHER, DERIK, IS HER DPOA AND HE RESIDES IN [place]. PT STATED SHE THOUGHT SHE HAD HOME HEALTH AND TO ASK DERIK ON WHICH AGENCY IT WAS. PT GAVE PERMISSION FOR THIS WORKER TO CONTACT DERIK AND FELI (SISTER IN LAW). THIS WORKER ENCOURAGED PT TO CALL WITH ANY QUESTIONS/NEEDS. Addendum: 05/20/16 at 1654 by ZEE MENDOZA Amended: Links added.
--- NOTE | 2016-05-20 20:06 | NUR ---
Shift Summary Patient alert and oriented x3. Intermittent stuttering and tremors. Reduced tremors with distraction. Ambulating with FWW, gait belt min assist. Transfers with min assist with FWW, gait belt. Continent of bowel and bladder this shift. Wears pull ups. Wears glasses, dentures and glasses. Patient worked on puzzle between therapies this shift. Family brought in patient melany project to work on. Working with PT, OT, ST. Feeds self with built up silverware, supervision. Upgraded to regular liquids this shift.
[2016-05-20 20:41] VITALS: BP 129/55; PULSE 69; RESP 18; TEMP 97.4; O2SAT 96
--- NOTE | 2016-05-20 23:55 | PDIRUOPC ---
Overall Plan of Care Date DATE: 05/20/16 TIME: 23:52 Relevant Changes Relevant Changes: No I have reviewed the patient's information and concur with the finding and results of the pre-admission screen. Certification I certify the patient for rehabilitation. Patient Impairments Prior Medical Conditions: (1) Gait instability Status: Acute Additional Information: PT and OT to develop plan of care. (2) Essential tremor Status: Acute Additional Information: COnt with primidone adjustment per medical. (3) Declining functional status Status: Acute Additional Information: PT and OT to work with pt and assist in strengthening and increasing stability when ambulating. Current Medical Conditions: (1) Gait instability Status: Acute Additional Information: PT and OT to develop plan of care. (2) Essential tremor Status: Acute Additional Information: COnt with primidone adjustment per medical. (3) Declining functional status Status: Acute Additional Information: PT and OT to work with pt and assist in strengthening and increasing stability when ambulating. Medical Prognosis Fair IRF Tx That Should Address Dx: Dx Requiring Medical FU: Vital Signs Vital Signs Date Time Temp Pulse Resp B/P Pulse Ox O2 Delivery O2 Flow Rate FiO2 05/20/16 20:41 97.4 69 18 129/55 96 Room Air Laboratory Laboratory Tests Test 05/19/16 04:55 White Blood Count 5.9T/MM3 Red Blood Count 4.07M/MM3 Hemoglobin 13.4GM/DL Hematocrit 41.1% Mean Corpuscular Volume 101.0UM3 Mean Corpuscular Hemoglobin 32.9UUG Mean Corpuscular Hemoglobin Concent 32.6GM/DL RDW Standard Deviation 47.2FL Platelet Count 237T/MM3 Mean Platelet Volume 9.7UM3 Immature Granulocyte % (Auto) 0.2% Neutrophils (%) (Auto) 33.5% Lymphocytes (%) (Auto) 53.5% Monocytes (%) (Auto) 9.4% Eosinophils (%) (Auto) 2.9% Basophils (%) (Auto) 0.5% Absolute Immature Granulocyte (auto 0.01T/MM3 Absolute Neutrophils (auto) 2.0T/MM3 Absolute Lymphocytes (auto) 3.2T/MM3 Absolute Monocytes (auto) 0.6T/MM3 Absolute Eosinophils (auto) 0.2T/MM3 Absolute Basophils (auto) 0.0T/MM3 Turbidity < 20 Sodium Level 143MEQ/L Potassium Level 4.2MEQ/L Chloride Level 105MEQ/L Carbon Dioxide Level 28MEQ/L Anion Gap 10MEQ/L Blood Urea Nitrogen 12.0MG/DL Creatinine 0.7MG/DL Glomerular Filtration Rate Calc 82 BUN/Creatinine Ratio 17RATIO Glucose Level 98MG/DL Calculated Osmolality 275MOSM/KG Calcium Level 9.1MG/DL Icterus Index < 2 Chemistry Specimen Hemolysis < 15 Anticipated Interventions The patient requires inpatient IRF care for PT, OT, and/or ST for residuals remaining from weakness and declining functional status resulting in muscular weakness and strength deficits. ROM Deficit: Left Lower Extremity, Right Lower Extremity Strength Deficits: Left Lower Extremity, Right Lower Extremity FIM Scores Ambulation Distance: 152 Ambulation Ability: 4 Minimal Assistance Ambulation Assistance Needed: 1 Person Wheelchair Propulsion Ability: 1 Total Assistance Wheelchair Propulsion Assistan: 1 Person Stairs: 1 Total Assistance Stair Assistance Needed: 1 Person Number of Stairs: 1 Eating Ability-FIM: 5 Supervision/Setup Grooming Ability: 4 Minimal Assistance Bathing Ability: 4 Minimal Assistance Upper Body Dressing Ability: 4 Minimal Assistance Lower Body Dressing Ability: 3 Moderate Assistance Toileting Ability: 4 Minimal Assistance Toileting Assistance Needed: 1 Person Bed Transfer Ability: 4 Minimal Assistance Bed Transfer Assistance Needed: 1 Person Chair Transfer Ability: 5 Supervision/Setup Chair Transfer Assistance Need: 1 Person Overall Wheelchair Transfer Ab: 4 Minimal Assistance Overall Toilet / Commode Trans: 4 Minimal Assistance Toilet / Commode Transfer Assi: 1 Person Tub / Shower Transfer Ability: 4 Minimal Assistance Tub / Shower Transfer Assistan: 1 Person Comprehension Ability: 4 Minimal Assistance Social Interaction: 4 Minimal Assistance Problem Solvin Minimal Assistance Expression Ability: 3 Moderate Assistance Memory: 5 Supervision/Setup Swallowin Minimal Assistance Current Functional Status Failed Alternative Therapy: Arrived from acute care Patient Requires * Patient has been determined to have significant functional limitations requiring at least two therapy disciplines. * Rehabilitation medical practitioner will provide admission approval, assessment and oversight and program coordination at least daily. * Intensive rehabilitative nursing services on site and available 24 hours a day. * The treatment plan will be developed within 24 hours of admission. * Interdisciplinary and goal oriented treatment by professional nursing, nephrology social worker, and rehabilitation therapist. * Interdisciplinary team meeting weekly inclusive of ongoing comprehensive discharge planning. First team meeting by . Weekly meetings to follow. * Rehab Physician is the team meeting leader. * Pharmacy and diagnostic services will be available. * Ongoing comprehensive rehab program with at least 2 disciplines and greater than or equal to 3 hours a day, 5 days a week. Limitations require: limited mobility, ADL impairment Physical Therapy Minutes: 90 Occupational Therapy Minutes: 90 Therapy The patient is to receive therapy at least 5 days a week. PT Treatment Plan: Therapeutic Exercise, Gait Training, Functional Activities , Patient/Family Education, Balance/Proprioception Treatment Plan Frequency: five times per week Treatment Plan Duration: two weeks Plan of Care Comment: Continue Plan of Care, recommended to upgrade liquids to regular thin liquids OT Treatment Plan: ADL's (basic care), Ther. Exercise for ADL's, UE Functional Training, Balance Training, Pt./Family Education, IADL's OT Treatment Plan Frequency: five times per week OT Treatment Plan Duration: three weeks ST Treatment Plan: Swallow Retraining, Modified Diet ST Treatment Plan Frequency: five times per week Treatment Plan Duration: one week Anticapted LOS/Outcomes Anticipated Functional Outcome improvement in status beyond abilities at time of admit Anticipated DC Destination: Home, self senior living Safety Plan The patient will be provided with the development of a Home Safety Plan for return to a home or home-like environment and to ensure safety post discharge. Complicating Conditions Complications since IRF admit: (1) Gait instability Status: Acute Comments: PT and OT to develop plan of care. (2) Essential tremor Status: Acute Comments: COnt with primidone adjustment per medical. (3) Declining functional status Status: Acute Comments: PT and OT to work with pt and assist in strengthening and increasing stability when ambulating. Other Contributing Factors: Plan to Avoid Complications Barriers to Attaining Goals: weakness, balance, endurance Plan to Avoid Complications The patient cannot receive this care in a lesser intensive setting such as [facility] or Outpatient Therapy due to the patient requiring the following management of tremor/anxiety. The patient requires oversight by a rehabilitation physician to manage their rehabilitation treatment plan and the multidisciplinary approach to care that can only be provided in an IRF and requires a multidisciplinary approach to care , provided by professional PTs, OTs, STs, dieticians, RTs, rehabilitation nurses and is not available in lesser levels of care. The frequency and duration for therapy, as recommended by the professional Rehabilitation therapists, meet the patient's initial rehabilitation treatment plan needs and will be further evaluated on a weekly basis for progress and/or changes needed. DENNIS BLANCO MD May 20, 2016 23:55
[2016-05-21] MEDS: CLONAZEPAM 0.5 MG TABLET PO SCH ×3 (01:00→16:45)
--- NOTE | 2016-05-21 05:09 | NUR ---
Summary Pt noted to have tremors at beginning of shift. Pt had visitors, daughter in law and a male. Pt was conversational with stuttering. Pt says she has slept well tonight. Pt has rolled to her side while sleeping and appears comfortable. Pt was able to come fully awake with minimal prompting to take her 0100 med. Pt then ambulated to BR to void and then back to bed. Pt did not display any tremors during these activities. Pt sleeping in bed at this time.
[2016-05-21] MEDS: MULTIVIT + MINERALS (OPTI-GEN) PO SCH (08:13)
[2016-05-21] MEDS: DOCUSATE SODIUM 100 MG CAPSULE PO SCH ×2 (08:13→20:50)
[2016-05-21] MEDS: PROPRANOLOL 10 MG TABLET PO SCH ×2 (08:13→20:51)
[2016-05-21] MEDS: LISINOPRIL 10 MG TABLET PO SCH (08:13)
[2016-05-21] MEDS: PRIMIDONE 50 MG TABLET PO SCH ×2 (08:14→20:51)
[2016-05-21 09:12] VITALS: BP 120/54; PULSE 58; RESP 18; TEMP 97.6; O2SAT 93
[2016-05-21 09:14] VITALS: PULSE 58; RESP 18
--- NOTE | 2016-05-21 12:29 | PDIRUTEAM ---
Multidisciplinary Team Meeting Nursing Hx Incontinence: Yes Bladder Goal: 6 Modified [place] Y/N: No Bladder Continent or Incontine: Continent Incontinent Product Used: Pull-up Cleaning Ability-Bladder: 6 Modified [place] Bowel Goal: 6 Modified [place] Bowel Incontinent/Continent: Continent Bowel Number of Accidents: 0 Number of times Incontinent of: 0 Cleaning Ability-Bowel: 5 Supervision/Setup Toileting Ability: 5 Supervision/Setup Vital Signs Vital Signs Date Time Temp Pulse Resp B/P Pulse Ox O2 Delivery O2 Flow Rate FiO2 05/21/16 09:14 58 18 05/21/16 09:12 97.6 120/54 93 Room Air Current Medications Current Medications Medications (Trade) Dose Ordered Sig/Silviano Route PRN Reason Start Time Stop Time Status Last Admin Dose Admin Docusate Sodium (Colace) 100 mg BID PO 05/18/16 21:00 05/21/16 08:13 Citalopram Hydrobromide (Celexa) 20 mg DAILY PO 05/19/16 09:00 05/21/16 08:13 Lisinopril (Prinivil) 10 mg DAILY PO 05/19/16 09:00 05/21/16 08:13 Lorazepam (Ativan) 0.5 mg Q6HR PRN PO ANXIETY/AGITATION 05/18/16 16:45 05/19/16 05:59 Primidone (Mysoline) 25 mg BID PO 05/18/16 21:00 05/21/16 08:14 Propranolol HCl (Inderal) 10 mg BID PO 05/18/16 21:00 05/21/16 08:13 Multivitamins/ Minerals (Vision) 1 tab DAILY PO 05/19/16 09:00 05/21/16 08:13 Trolamine Salicylate (Aspercreme) 1 applic PRN PRN TOP 05/19/16 09:30 05/20/16 18:34 Clonazepam (Klonopin) 0.5 mg Q8H PO 05/19/16 16:45 05/21/16 08:16 Comments Speech workign to make meals easier////built up silverware, foot rest both seemed to help. Diff expressing needs. Physical Therapy Bed Transfer Ability: 4 Minimal Assistance Bed Transfer Assistance Needed: 1 Person Chair Transfer Ability: 4 Minimal Assistance Chair Transfer Assistance Need: 1 Person Overall Wheelchair Transfer Ab: 4 Minimal Assistance Wheelchair Transfer Assistance: 1 Person Overall Toilet / Commode Trans: 4 Minimal Assistance Ambulation Ability: 4 Minimal Assistance Ambulation Assistance Needed: 1 Person Ambulation Distance: 152 Comments Progressing ,but slowly. Shaking/tremor a big deal. May have little or no tremor when alone, but as soon as stressed, had sig tremor/shakes. Occupational Therapy Grooming Ability: 5 Supervision/Setup Bathing Ability: 4 Minimal Assistance Upper Body Dressing Ability: 5 Supervision/Setup Lower Body Dressing Ability: 4 Minimal Assistance Toileting Assistance Needed: 1 Person Comments FIMS 4s and 5s. Care Plan Condition at time of discharge: Fair IRU Discharge Disposition: Home, self care Interventions/Goals Discuss depakoate vs hydroxyzine, discuss with Dr Rivas. barriers tod/c....endurance,coordination. DENNIS BLANCO MD May 21, 2016 12:24
--- NOTE | 2016-05-21 15:47 | PNPDOC ---
LITO ESTEVEZ V ARCHITECT INTERN 05/21/16 1539: Subjective Date DATE: 05/21/16 TIME: 15:36 Subjective She is seen today sitting up in her chair, she has just completed therapy. She informs that she is feeling well today, however she is still having some back spasms. Overall she feels as though she is better than when she came, however she is still having tremors and stuttering when speaking. The tremors seem to stop when auscultating pulmonary lobes. She denies any other complaints including chest pain or shortness of breath. Objective Vital Signs Vital signs Vital Signs Date Time Temp Pulse Resp B/P Pulse Ox O2 Delivery O2 Flow Rate FiO2 05/21/16 09:14 58 18 05/21/16 09:12 97.6 120/54 93 Room Air Height (Feet): 5 Height (Inches): 2.00 Weight (Kilograms): 77.900 General General Appearance: Alert, Orientated x 3, Well Nourished, Cooperative, No Acute Distress Eyes (Brief) Eyes: FOUND: EOMI Respiratory (Brief) Respiratory: FOUND: clear all bocanegra, equal bilaterally Cardiovascular (Brief) Cardiac: FOUND: regular rate, regular rhythm Abdomen (Brief) Abdominal: FOUND: BS normo active x4, soft Musculoskeletal (Brief) Musculoskeletal: FOUND: spasm (upper back) Integumentary (Brief) Integumentary: FOUND: dry, pink, warm Neurologic (Brief) Neurological: FOUND: cranial 2-12 intact Comments bilateral tremors throughout entire exam Psychiatric (Brief) Psychiatric: FOUND: alert, normal affect, oriented Assessment & Plan Problems: (1) Essential tremor Status: Acute (2) Declining functional status Status: Acute (3) Dysphagia Status: Acute (4) Gait instability Status: Acute (5) HTN (hypertension) Status: Chronic (6) Anxiety Status: Chronic (7) Depression Status: Chronic (8) Osteoarthritis Status: Chronic (9) Obesity (BMI 30-39.9) Status: Chronic Plan/Intensity of Service 05/21/[address] Yi, recommendation to increase Clonazepam to 0.75mg three times daily. May consider adding Lamictal later on. This was discussed with Dr Salgado. Continue with current Primidone and propranolol Blood pressure has remained stable on lisinopril 10 milligrams daily Continue with Aspercreme topically for thoracic muscle spasms Continue Celexa, appreciate psychiatric consultation. Continue PT and OT for gait stability and strengthening. Continue with ST for improving dysphagia Code Status Do Not Resuscitate Hospital Course Summary Disclaimer The hospital course summary below is not to be considered part of the above Progress Note. Hospital Course Summary 05/21/[address] Yi, recommendation to increase Clonazepam to 0.75mg three times daily. May consider adding Lamictal later on. This was discussed with Dr Salgado. Continue with current Primidone and propranolol Blood pressure has remained stable on lisinopril 10 milligrams daily Continue with Aspercreme topically for thoracic muscle spasms Continue Celexa, appreciate psychiatric consultation. Continue PT and OT for gait stability and strengthening. Continue with ST for improving dysphagia LENKA CASTRO MD 05/21/16 9525: Assessment & Plan Plan/Intensity of Service Have independently interviewed and examined pt. Chart reviewed. Case discussed with my ARCHITECT INTERN. Above care plan developed with my supervision; agree with above. Doing okay today. Tolerating therapy. Tremor still problematic. Breathing well. Eating well. No ab pain. Lungs: clear CV: regular AB: Soft nt/nd MSE: awake alert appropriate Plan: Continue therapy to maximize functional status. Encourage therapy. Continue lisinopril for BP control. Continue tremor meds. Medically stable for IRU floor activities. LITO ESTEVEZ APRN May 21, 2016 15:39 LENKA CASTRO MD May 21, 2016 18:41
[2016-05-21 16:00] VITALS: BP 111/56; PULSE 57; RESP 16; TEMP 98.1; O2SAT 94
--- NOTE | 2016-05-21 16:09 | STDAILYN ---
ST Daily Note Date/Time DATE: 05/21/16 TIME: 15:45 Subjective Comment Upon arrival, Shelley was sitting upright in her chair putting together a puzzle. She had no c/o pain or fatigue and was in a pleasant mood. Shelley agreed to having charter coach driver, Krysta, provide therapy while being supervised by SUPERVISOR MIRROR FABRICATION Holger. Orientations: Person, Cooperative, Motivated Chief Complaint: Essential Tremors Pain: No (Pt. reported no pain ) Was Patient Education Provided: Yes Person(s) Educated: Patient Education Subject: Treatment Plan Instruction Understanding Demo: Pt. verbalizes understand Education Comment Patient was educated on breathing exercises and goals targeting auditory comprehension. Patient verbalized understanding. *Speech Therapy Impressions Turn Operator Goals: 1. Pt will express needs and wants in a variety of communication settings. 2. Pt will understand basic conversation. 3. Pt will improve breath support for speech. Short Term Objectives: 1. Pt will formulate sentences to describe event or activity with 90% accuracy Not targeted during therapy session 2. Pt will listen to short story and recall 3/5 facts with 90% accuracy. Patient was read a 2 sentence passage then asked 2 questions regarding each passage. Patient exhibited 45% accuracy and required max. prompts throughout the entire task. 3. Pt will complete diaphragmatic breathing with inhalation (6 seconds) and exhalation 8 seconds on 8/10 trials. Patient was educated on steps of diaphragmatic breathing. Patient completed 10 trials (5 trials at the beginning and 5 trials at the end of the session) with inhalation (5 seconds) and exhalation (5 seconds) with max. prompts throughout the task. ST Treatment Plan: Communication Retraining, Breathing Exercises ST Treatment Plan Frequency: five times per week Treatment Plan Duration: one week Plan of Care Comment: Continue Plan of Care Start Treatment 1: 15:10 Stop Treatment 1: 15:33 Treatment Duration : ST Treatment Charge: Speech Treatment Minutes of Individual Therapy: 23 ST FIM Comprehension Ability: 3 Moderate Assistance Social Interaction: 4 Minimal Assistance Problem Solvin Moderate Assistance Memory: 3 Moderate Assistance Expression Ability: 3 Moderate Assistance Swallowin Minimal Assistance KRYSTA WALDROP May 21, 2016 15:51
--- NOTE | 2016-05-21 18:54 | NUR ---
SHIFT SUMMARY PT IS A&O X3. PT HAS HAD NO C/O PAIN FOR THIS SHIFT. PT AMBULATES WITH FWW, GB AND AX1. PT IS ABLE TO USE CALL LIGHT AND MAKE NEEDS KNOWN TO STAFF. PT IS COMPLIANT WITH CARES AND THERAPY FOR THIS SHIFT. PT HAS HAD NO PRN MEDICATION AND EATS WELL. PT TAKES MEDICATION WHOLE IN PUDDING. PT HAS BEEN CONTINENT FOR THIS SHIFT.
[2016-05-21 19:30] VITALS: BP 121/63; PULSE 61; RESP 18; TEMP 95.3; O2SAT 94
--- NOTE | 2016-05-21 20:46 | PNPDOC ---
IRU Subjective Date DATE: 05/21/16 TIME: 20:43 Subjective Pt working well with staff. Still having issues with stuttering and with instability. IRU Objective Vital Signs Vital signs Vital Signs Date Time Temp Pulse Resp B/P Pulse Ox O2 Delivery O2 Flow Rate FiO2 05/21/16 16:00 98.1 57 16 111/56 94 Room Air Height (Feet): 5 Height (Inches): 2.00 Weight (Kilograms): 77.900 General General Appearance: Alert, Orientated x 2 Respiratory (Brief) Respiratory: FOUND: clear all bocanegra, equal bilaterally Cardiovascular (Brief) Cardiac: FOUND: regular rate, regular rhythm Capillary Refill: <2 sec Assessment & Plan Problems: (1) Gait instability Status: Acute Assessment & Plan: PT and OT working with pt, continue with current plan of care. Team meeting held today. Reeval one week (2) Essential tremor Status: Acute Assessment & Plan: DIscussed medication changes with Neurology. Medical to manage. (3) Declining functional status Status: Acute Assessment & Plan: Tremor has truly caused disruption in her nutrition and self care. Staff working with her. DVT Prophylaxis: SCD'S Code Status Do Not Resuscitate Interventions to Obtain Goals PT Treatment Plan: Therapeutic Exercise, Gait Training, Functional Activities , Patient/Family Education, Balance/Proprioception OT Treatment Plan: ADL's (basic care), Ther. Exercise for ADL's, UE Functional Training, Balance Training, Pt./Family Education, IADL's ST Treatment Plan: Communication Retraining, Breathing Exercises Hospital Course Summary Disclaimer The hospital course summary below is not to be considered part of the above Progress Note. Hospital Course Summary 05/21/[address] Yi, recommendation to increase Clonazepam to 0.75mg three times daily. May consider adding Lamictal later on. This was discussed with Dr Blanco. Continue with current Primidone and propranolol Blood pressure has remained stable on lisinopril 10 milligrams daily Continue with Aspercreme topically for thoracic muscle spasms Continue Celexa, appreciate psychiatric consultation. Continue PT and OT for gait stability and strengthening. Continue with ST for improving dysphagia DENNIS BLANCO MD May 21, 2016 20:46
[2016-05-21 22:41] VITALS: PULSE 61; RESP 18
[2016-05-22] MEDS: CLONAZEPAM 0.5 MG TABLET PO SCH ×3 (01:47→16:54)
--- NOTE | 2016-05-22 02:19 | NUR ---
Chart Check 24 hour chart check completed
--- NOTE | 2016-05-22 06:34 | NUR ---
Summary Patient is alert and oriented times three. She has been asleep most of this shift, waking up only to use restroom and take medications. She has been cooperative with cares and medications. She reported no pain this shift. No tremors noted and no stuttering. She ambulates with FWW and gait belt with one person assist. She was slightly wet times one when up to restroom. Continent the rest of the shift. She is currently in bed with side rails up times two, bed alarm on and call light within reach.
[2016-05-22] MEDS: PROPRANOLOL 10 MG TABLET PO SCH ×2 (08:49→21:15)
[2016-05-22] MEDS: LISINOPRIL 10 MG TABLET PO SCH (08:49)
[2016-05-22] MEDS: DOCUSATE SODIUM 100 MG CAPSULE PO SCH ×2 (08:49→21:15)
[2016-05-22] MEDS: MULTIVIT + MINERALS (OPTI-GEN) PO SCH (08:50)
[2016-05-22] MEDS: PRIMIDONE 50 MG TABLET PO SCH ×2 (08:50→21:15)
[2016-05-22 09:37] VITALS: BP 133/63; PULSE 61; RESP 16; TEMP 95.9; O2SAT 94
--- NOTE | 2016-05-22 12:20 | NUR ---
CM CALL FROM FELI, SISTER IN LAW/DPOA. SHE ASKED FOR A GENERAL UPDATE. THIS WORKER EXPLAINED NO DC DATE HAS BEEN ANTICIPATED YET AND THIS WORKER WILL UPDATE HER WHEN THIS IS KNOWN. REVIEWED PT'S DC PLAN OF HOME. DISCUSSED HAVING HOME HEALTH A POSSIBILITY. SHE SAID PT HAS IN HOME CARE THROUGH THE [facility] PROGRAM. SHE SAID SHE IS GOING TO CONTACT THE PT'S [employer] ([employer]) TO ASK ABOUT INCREASING HOURS. THIS WORKER OFFERED TO CALL ALSO; SHE SAID SHE WILL HAVE TO CALL THIS WORKER BACK TO PROVIDE [employer]'S NUMBER. SHE HAD NO FURTHER QUESTIONS/NEEDS AT THIS TIME.
[2016-05-22 14:44] VITALS: PULSE 61; RESP 16
--- NOTE | 2016-05-22 15:02 | NUR ---
STATUS. PT HAS BEEN PLEASANT AND COOPERATIVE WITH STAFF. TREMORS NOTED AT TABLE. CUSHION FOR FEET TO SET ON APPEARS TO BE HELPFUL. PT USING WEIGHTED UTENSILS AT MEALS. TAKES MEDS WHOLE WITH PUDDING. TOLERATES WELL. PT ABLE TO MANAGE BATHING WITH ONLY ASSIST OF BACK. ASSIST WITH SOCKS, AND MIN ASSIST WITH PANTS.
--- NOTE | 2016-05-22 15:41 | STDAILYN ---
ST Daily Note Date/Time DATE: 05/22/16 TIME: 15:15 Subjective Comment Patient was greeted in the hallway and walked with her FWW to the dining area for therapy. Patient was in a pleasant mood and had no c/o pain or fatigue. Patient agreed to having graduate clinician, Krysta, provide therapy while being supervised by BALANCE RECESSER Arabella. Orientations: Person, Cooperative Chief Complaint: Essential Tremors Pain: No (Pt. reported having no pain ) Was Patient Education Provided: Yes Person(s) Educated: Patient Education Subject: Treatment Plan Instruction Understanding Demo: Pt. verbalizes understand Education Comment Patient was educated on treatment plan. Patient verbalized understanding. *Speech Therapy Impressions [facility] Goals: 1. Pt will express needs and wants in a variety of communication settings. 2. Pt will understand basic conversation. 3. Pt will improve breath support for speech. Short Term Objectives: 1. 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 Patient demonstrated minimal stuttering and tremors throughout the conversation. 2. Pt will listen to short story and recall 3/5 facts with 90% accuracy. Patient was read a 2 sentence passage then asked 2 questions regarding each passage. Patient exhibited 60% accuracy and required mod. prompts via forced choices and phonemic cues throughout the entire task. 3. Pt will complete diaphragmatic breathing with inhalation (6 seconds) and exhalation 8 seconds on 8/10 trials. Patient was educated on steps of diaphragmatic breathing. Patient completed 10 trials (5 trials at the beginning and 5 trials at the end of the session) with inhalation (5 seconds) and exhalation (7 seconds) with min. to mod. prompts throughout the task. ST Treatment Plan: Communication Retraining, Breathing Exercises ST Treatment Plan Frequency: five times per week Treatment Plan Duration: one week Plan of Care Comment: Continue Plan of Care Start Treatment 1: 14:20 Stop Treatment 1: 15:12 Treatment Duration : ST Treatment Charge: Speech Treatment Minutes of Individual Therapy: 52 ST FIM Comprehension Ability: 4 Minimal Assistance Social Interaction: 6 Modified [place] Problem Solvin Minimal Assistance Memory: 4 Minimal Assistance Expression Ability: 4 Minimal Assistance Swallowin Minimal Assistance KRYSTA WALDROP May 22, 2016 15:18
[2016-05-22 16:16] VITALS: BP 95/49; PULSE 58; RESP 16; TEMP 97.4; O2SAT 97
--- NOTE | 2016-05-22 19:46 | NUR ---
SUMMARY. PT HAS BEEN PLEASANT AND COOPERATIVE WITH STAFF. AMBULATES TO MEALS USING FWW AND GAITBELT WITH MIN TO SBA. PT HAS SOME TREMORS NOTED IN DINING ROOM. PT REPORTS HAD A GOOD DAY WITH THERAPY.
[2016-05-22 20:00] VITALS: BP 98/50; PULSE 55; RESP 12; TEMP 95.3; O2SAT 92
[2016-05-22] MEDS: BISACODYL 10 MG SUPPOSITORY RECTALLY PRN (21:15)
[2016-05-22] MEDS ORDERED: ONDANSETRON ODT 4 MG TAB PO PRN (22:45)
[2016-05-22 22:58] VITALS: PULSE 55; RESP 12
--- NOTE | 2016-05-22 23:30 | PNPDOC ---
IRU Subjective Date DATE: 05/22/16 TIME: 23:28 Subjective Tremor may have improved slightly with clonazepam increase to .75mg tid. Pt working with PT and OT today. IRU Objective Vital Signs Vital signs Vital Signs Date Time Temp Pulse Resp B/P Pulse Ox O2 Delivery O2 Flow Rate FiO2 05/22/16 22:58 55 12 05/22/16 20:00 95.3 98/50 92 Room Air Height (Feet): 5 Height (Inches): 2.00 Weight (Kilograms): 77.900 General General Appearance: Alert, Orientated x 2 Respiratory (Brief) Respiratory: FOUND: clear all bocanegra, equal bilaterally Cardiovascular (Brief) Cardiac: FOUND: regular rate, regular rhythm Capillary Refill: <2 sec Neurologic (Brief) Comments tremor still present, but pt more distractible from it and able to focus on other issues. Assessment & Plan Problems: (1) Gait instability Status: Acute Assessment & Plan: PT and OT working with pt to increase stability and strength. (2) Essential tremor Status: Acute Assessment & Plan: Increase of clonazepam may have helped tremor, re eval tomorrow. (3) Declining functional status Status: Acute Assessment & Plan: PT and OT working with pt to increase endurance. Code Status Do Not Resuscitate Interventions to Obtain Goals PT Treatment Plan: Therapeutic Exercise, Gait Training, Functional Activities , Patient/Family Education, Balance/Proprioception OT Treatment Plan: ADL's (basic care), Ther. Exercise for ADL's, UE Functional Training, Balance Training, Pt./Family Education, IADL's ST Treatment Plan: Communication Retraining, Breathing Exercises Hospital Course Summary Disclaimer The hospital course summary below is not to be considered part of the above Progress Note. Hospital Course Summary 05/21/[address] Yi, recommendation to increase Clonazepam to 0.75mg three times daily. May consider adding Lamictal later on. This was discussed with Dr Blanco. Continue with current Primidone and propranolol Blood pressure has remained stable on lisinopril 10 milligrams daily Continue with Aspercreme topically for thoracic muscle spasms Continue Celexa, appreciate psychiatric consultation. Continue PT and OT for gait stability and strengthening. Continue with ST for improving dysphagia DENNIS BLANCO MD May 22, 2016 23:30
[2016-05-23] MEDS: CLONAZEPAM 0.5 MG TABLET PO SCH ×3 (00:50→17:40)
--- NOTE | 2016-05-23 01:34 | NUR ---
Chart Check 24 hour chart check completed
--- NOTE | 2016-05-23 06:35 | NUR ---
Summary Patient is alert and oriented times three, pleasant and cooperative. She needs guidance with ADLs. She had a suppository for constipation, and then had three large BMs, with the last one incontinent and very loose. She also started vomiting at this time. Zofran was ordered by tele-hospitalist, and this was effective. No further nausea tonight. She is currently sleeping quietly in her bed with side rails up times two, bed alarm on and call light within reach.
[2016-05-23 08:00] VITALS: PULSE 61; RESP 18
[2016-05-23 08:01] VITALS: BP 97/48; PULSE 61; RESP 18; TEMP 98.1; O2SAT 93
[2016-05-23] MEDS: LISINOPRIL 10 MG TABLET PO SCH (09:00)
[2016-05-23] MEDS: DOCUSATE SODIUM 100 MG CAPSULE PO SCH ×2 (09:00→20:09)
[2016-05-23] MEDS: MULTIVIT + MINERALS (OPTI-GEN) PO SCH (09:08)
[2016-05-23] MEDS: PROPRANOLOL 10 MG TABLET PO SCH ×2 (09:08→20:09)
[2016-05-23] MEDS: PRIMIDONE 50 MG TABLET PO SCH ×2 (09:09→20:10)
--- NOTE | 2016-05-23 14:09 | NUR ---
CM SPOKE WITH PT. REVIEWED DC PLAN OF HOME. REVIEWED IRU PLAN OF CARE, AND SHE SIGNED THIS. SHE HAD NO QUESTIONS/CONCERNS ABOUT IT. DISCUSSED THAT THIS WORKER WILL ATTEMPT TO FOLLOW UP WITH HER [employer] RELATIONS SPECIALIST (SILVIA PEÑA) TO ASSESS THE AMOUNT OF SERVICES THROUGH THE HCBS PROGRAM. SHE GAVE PERMISSION FOR THIS WORKER TO DO THIS. LEFT MESSAGE WITH [employer], RE: ASKING FOR CONTACT INFO FOR SILVIA.
--- NOTE | 2016-05-23 14:25 | STDAILYN ---
ST Daily Note Date/Time DATE: 05/23/16 TIME: 14:02 Subjective Comment Upon arrival, Shelley was in the dining room. Nursing staff walked Shelley back to her room with FWW. She reported no acute c/o pain or fatigue. Shelley agreed to having graduate clinician, Krysta, provide therapy while being supervised by MANAGER PRODUCT SUPPORT Holger. Orientations: x 3, Cooperative Chief Complaint: Essential Tremors Pain: No (Pt. reported having no pain ) Was Patient Education Provided: Yes Person(s) Educated: Patient Education Subject: Treatment Plan Instruction Understanding Demo: Pt. verbalizes understand Education Comment Patient was educated on treatment plan. Patient verbalized understanding. *Speech Therapy Impressions [facility] Goals: 1. Pt will express needs and wants in a variety of communication settings. 2. Pt will understand basic conversation. 3. Pt will improve breath support for speech. Short Term Objectives: 1. Pt will formulate sentences to describe event or activity with 90% accuracy Patient formulated sentences to describe family history with approximately 85% accuracy. Patient demonstrated moderate disfluencies (i.e. part and whole word repetitions) and minimal tremors throughout the conversation. 2. Pt will listen to short story and recall 3/5 facts with 90% accuracy. Patient was read a 2 sentence passage then asked 2 questions regarding each passage. Patient exhibited 45% accuracy and required max. prompts via forced choices and phonemic cues throughout the entire task. 3. Pt will complete diaphragmatic breathing with inhalation (6 seconds) and exhalation 8 seconds on 8/10 trials. Patient was educated on steps of diaphragmatic breathing. Patient completed 10 trials (5 trials at the beginning and 5 trials at the end of the session) with inhalation (5 seconds) and exhalation (5 seconds) with minimal prompts throughout the task. ST Treatment Plan: Communication Retraining, Breathing Exercises ST Treatment Plan Frequency: five times per week Treatment Plan Duration: one week Plan of Care Comment: Continue Plan of Care Start Treatment 1: 12:45 Stop Treatment 1: 13:37 Treatment Duration : ST Treatment Charge: Speech Treatment Minutes of Individual Therapy: 47 ST FIM Comprehension Ability: 4 Minimal Assistance Social Interaction: 5 Supervision/Setup Problem Solvin Minimal Assistance Memory: 4 Minimal Assistance Expression Ability: 4 Minimal Assistance Swallowin Supervision/Setup KRYSTA WALDROP May 23, 2016 14:06
[2016-05-23 16:55] VITALS: BP 103/51; PULSE 62; RESP 18; TEMP 97.6; O2SAT 95
--- NOTE | 2016-05-23 18:51 | NUR ---
Shift Summary Pt is resting at this time. Ambulates with assist of 1, FWW, and gait belt. Ate well for meals, ambulated to the dining room, needed assist with set up of her tray. Worked well with therapy today. Did get a little off unsteady at times, but did well when with staff. She visited well with other staff at the dining room table. She has been continent this shift, able to manage her own clothing and cares. Sat up in the recliner at times this shift. When in bed or the chair the alarm is in use and call light is within reach.
[2016-05-23 21:33] VITALS: PULSE 62; RESP 18
--- NOTE | 2016-05-23 21:33 | NUR ---
Chart Check 24 hour chart check completed
[2016-05-24] MEDS: CLONAZEPAM 0.5 MG TABLET PO SCH ×3 (02:33→17:45)
[2016-05-24 03:15] VITALS: BP 93/50; PULSE 64; RESP 16; TEMP 97.6; O2SAT 94
[2016-05-24 08:41] VITALS: BP 105/54; PULSE 63; RESP 20; TEMP 97.5; O2SAT 92
[2016-05-24] MEDS: LISINOPRIL 10 MG TABLET PO SCH (09:18)
[2016-05-24] MEDS: PRIMIDONE 50 MG TABLET PO SCH ×2 (09:18→20:32)
[2016-05-24] MEDS: DOCUSATE SODIUM 100 MG CAPSULE PO SCH ×2 (09:18→20:33)
[2016-05-24] MEDS: MULTIVIT + MINERALS (OPTI-GEN) PO SCH (09:18)
[2016-05-24] MEDS: PROPRANOLOL 10 MG TABLET PO SCH ×4 (09:19→21:00)
[2016-05-24 11:02] VITALS: PULSE 63; RESP 20
[2016-05-24 16:17] VITALS: BP 127/65; PULSE 58; RESP 20; TEMP 97.5; O2SAT 97
--- NOTE | 2016-05-24 19:14 | NUR ---
SHIFT SUMMARY PT HAS BEEN PLEASANT AND COOPERATIVE. HAS BEEN OUT TO DINING ROOM FOR MEALS. PT AMBULATES WITH FWW AND GAIT BELT. PT TOOK A FEW NAPS SITTING UP IN CHAIR.
[2016-05-24 20:34] VITALS: BP 101/54; PULSE 62; RESP 16; TEMP 97.3; O2SAT 97
[2016-05-24 21:02] VITALS: PULSE 62; RESP 16
[2016-05-25] MEDS: CLONAZEPAM 0.5 MG TABLET PO SCH ×3 (01:08→17:27)
--- NOTE | 2016-05-25 02:40 | NUR ---
Chart Check 24 hour chart check completed
--- NOTE | 2016-05-25 05:38 | NUR ---
Summary Shelley has slept well during the night. She has been pleasant and cooperative when up. She has enjoyed chocolate pudding with her medications. She ambulated with FWW and gait belt with supervision. She can get herself in and out of bed, except one time during the night when she woke up tangled in the covers. She uses the call light appropriately. She is in bed with side rails up times two, bed alarm on and call light within reach.
[2016-05-25 08:00] VITALS: BP 130/58; PULSE 60; RESP 18; TEMP 98.6; O2SAT 95
[2016-05-25] MEDS: MULTIVIT + MINERALS (OPTI-GEN) PO SCH (08:47)
[2016-05-25] MEDS: LISINOPRIL 10 MG TABLET PO SCH (08:48)
[2016-05-25] MEDS: PROPRANOLOL 10 MG TABLET PO SCH ×2 (08:48→21:16)
[2016-05-25] MEDS: PRIMIDONE 50 MG TABLET PO SCH ×2 (08:48→21:17)
[2016-05-25] MEDS: DOCUSATE SODIUM 100 MG CAPSULE PO SCH ×2 (08:48→21:16)
[2016-05-25 16:21] VITALS: BP 104/51; PULSE 61; RESP 16; TEMP 98.4; O2SAT 94
--- NOTE | 2016-05-25 18:19 | NUR ---
SHIFT SUMMARY PT HAS BEEN OUT TO DINING ROOM FOR ALL MEALS. AMBULATES WITH FWW AND GAIT BELT. HAS SAT UP IN RECLINER MOST OF SHIFT. PT ENJOYS WORD SEARCHES.
--- NOTE | 2016-05-25 19:16 | PNPDOC ---
Subjective Date DATE: 05/25/16 TIME: 19:07 Subjective Mrs. Bronson was seen shortly after dinner. She reports that her back spasms have improved from earlier in the week but that she has generalized achiness today after getting tangled in night close last night. Her appetite is good and she is sleeping well. She denied dyspnea. She has been trying to walk with her therapists. Objective Vital Signs Vital signs Vital Signs Date Time Temp Pulse Resp B/P Pulse Ox O2 Delivery O2 Flow Rate FiO2 05/25/16 16:21 98.4 61 16 104/51 94 Room Air EXAM General-NAD, alert, soft slow speech with intermittent stuttering HEENT-conjunctiva clear, sclera anicteric Lungs-respirations nonlabored, breath sounds clear Cardiac-regular rhythm, heart tones obscured by patient's speaking Abd-soft, nontender Ext-trace bilateral lower extremity edema Neuro-minor bobbing of the head and shoulders but no tremor in the hands or arms at time of exam Psych-calm Height (Feet): 5 Height (Inches): 2.00 Weight (Kilograms): 77.900 Assessment & Plan Problems: (1) Essential tremor Status: Acute (2) Declining functional status Status: Acute (3) Dysphagia Status: Acute (4) Gait instability Status: Acute (5) HTN (hypertension) Status: Chronic (6) Anxiety Status: Chronic (7) Depression Status: Chronic (8) Osteoarthritis Status: Chronic (9) Obesity (BMI 30-39.9) Status: Chronic (10) Macrocytosis without anemia Assessment & Plan: B-12 565 in December 2015 Assessment Clinically stable. Back spasms improved. Check TSH to complete evaluation of macrocytosis. Blood pressure well-controlled. Mechanical soft diet for dysphagia. Continue therapies. Plan/Intensity of Service Laboratory data reviewed, outpatient records/labs reviewed. Code Status Do Not Resuscitate Hospital Course Summary Disclaimer The hospital course summary below is not to be considered part of the above Progress Note. Hospital Course Summary 05/21/[address] Yi, recommendation to increase Clonazepam to 0.75mg three times daily. May consider adding Lamictal later on. This was discussed with Dr Salgado. Continue with current Primidone and propranolol Blood pressure has remained stable on lisinopril 10 milligrams daily Continue with Aspercreme topically for thoracic muscle spasms Continue Celexa, appreciate psychiatric consultation. Continue PT and OT for gait stability and strengthening. Continue with ST for improving dysphagia 05/25/16 Clinically stable. Back spasms improved. Check TSH to complete evaluation of macrocytosis. Blood pressure well-controlled. Continue therapies. JUANITO VALLEJO MD May 25, 2016 19:11
[2016-05-25] MEDS: BISACODYL 10 MG SUPPOSITORY RECTALLY PRN (21:19)
[2016-05-25 22:40] VITALS: PULSE 61; RESP 18
[2016-05-25 22:41] VITALS: BP 109/53; PULSE 61; RESP 18; TEMP 98.4; O2SAT 94
--- NOTE | 2016-05-25 23:27 | NUR ---
STATUS. PT HAS BEEN ALERT AND OX3. PT C/O CONSTIPATION. REQUESTS SUPP. 1 SUPP GIVEN P "R" AT HS. PT HAD SMALL FORMED BM. PT USING CALL LIGHT APPROPRIATELY. MAKES NEEDS KNOWN.
--- NOTE | 2016-05-25 23:28 | NUR ---
Chart Check 24 hour chart check completed
[2016-05-26] MEDS: CLONAZEPAM 0.5 MG TABLET PO SCH ×3 (02:30→17:42)
[2016-05-26 05:10] LABS: BASOPHILS % (AUTO) 0.3 % (0-2); EOSINOPHILS # (AUTO) 0.2 T/MM3 (0-0.5); HCT - HEMATOCRIT 36.3 % (36-46); HGB - HEMOGLOBIN 11.9 GM/DL (12-16); IMMATURE GRANULOCYTE # (AUTO) 0.01 T/MM3 (0.00-0.03); IMMATURE GRANULOCYTE % (AUTO) 0.2 % (0.0-0.5); LYMPHOCYTES # (AUTO) 3.1 T/MM3 (1-4.8); LYMPHOCYTES % (AUTO) 52.2 % (23-45); MEAN CORPUSCULAR HGB 33.1 UUG (26-34); MEAN CORPUSCULAR HGB CONC(MCHC 32.8 GM/DL (31-37); MEAN CORPUSCULAR VOLUME 101.1 UM3 (80-100); MONOCYTES # (AUTO) 0.5 T/MM3 (0-0.8); MONOCYTES % (AUTO) 8.4 % (0-9.0); NEUTROPHILS #(AUTO)-ABSOLUTE 2.2 T/MM3 (1.8-7.7); NEUTROPHILS % (AUTO) 35.9 % (33-66); RED BLOOD COUNT 3.59 M/MM3 (4.00-5.20)
--- NOTE | 2016-05-26 06:38 | NUR ---
SUMMARY. PT HAS PLEASANT AND COOPERATIVE. CALLS FOR BR ASSIST. USING FWW AND GAITBELT WITH MIN TO SBA. PT MANAGING CLOTHING AND HYGIENE WITH SBA. SCHEDULED MEDS GIVEN WITH CHOCOLATE PUDDING PER PT REQUEST.
[2016-05-26 08:00] VITALS: BP 135/62; PULSE 62; PULSE 63; RESP 12; TEMP 95.4; O2SAT 95
[2016-05-26] MEDS: DOCUSATE SODIUM 100 MG CAPSULE PO SCH ×2 (08:35→21:16)
[2016-05-26] MEDS: LISINOPRIL 10 MG TABLET PO SCH (08:35)
[2016-05-26] MEDS: PRIMIDONE 50 MG TABLET PO SCH ×2 (08:35→21:16)
[2016-05-26] MEDS: MULTIVIT + MINERALS (OPTI-GEN) PO SCH (08:36)
[2016-05-26] MEDS: PROPRANOLOL 10 MG TABLET PO SCH ×2 (08:36→21:16)
--- NOTE | 2016-05-26 12:42 | PNPDOC ---
Subjective Date DATE: 05/26/16 TIME: 12:36 Subjective Shelley is seen during breakfast this morning. She is eating breakfast without difficulty. She denies having chest pain, shortness of breath or GI complains. Continues to have intermittent shaking that appears to worsen with anxiety. BP 135/65. Objective Vital Signs Vital signs Vital Signs Date Time Temp Pulse Resp B/P Pulse Ox O2 Delivery O2 Flow Rate FiO2 05/26/16 08:00 95.4 62 12 135/62 95 05/25/16 22:41 Room Air Height (Feet): 5 Height (Inches): 2.00 Weight (Kilograms): 77.900 General General Appearance: Alert, Orientated x 3, Cooperative, No Acute Distress Eyes (Brief) Eyes: FOUND: EOMI ENMT (Brief) ENMT: FOUND: mucosa moist, normal dentition, NOT FOUND: pharnyx erythema Neck (Brief) Neck: FOUND: midline, NOT FOUND: adenopathy, carotid bruits, tracheal deviation Respiratory (Brief) Respiratory: FOUND: clear all bocanegra, equal bilaterally, NOT FOUND: wheezes Cardiovascular (Brief) Cardiac: FOUND: regular rate, regular rhythm, NOT FOUND: murmur, pedal edema Capillary Refill: <2 sec Abdomen (Brief) Abdominal: FOUND: BS normo active x4, soft, NOT FOUND: distended, tender Lymphatic (Brief) Lymphatic: NOT FOUND: adenopathy Musculoskeletal (Brief) Musculoskeletal: NOT FOUND: tenderness Integumentary (Brief) Integumentary: FOUND: dry, pink, warm Neurologic (Brief) Neurological: FOUND: cranial 2-12 intact Psychiatric (Brief) Psychiatric: FOUND: alert, attentive, normal affect, oriented Laboratory Laboratory Laboratory Tests 05/26/16 04:46 Assessment & Plan Problems: (1) Essential tremor Status: Acute (2) Declining functional status Status: Acute (3) Dysphagia Status: Acute (4) Gait instability Status: Acute (5) HTN (hypertension) Status: Chronic (6) Anxiety Status: Chronic (7) Depression Status: Chronic (8) Osteoarthritis Status: Chronic (9) Obesity (BMI 30-39.9) Status: Chronic (10) Macrocytosis without anemia Assessment & Plan: B-12 565 in December 2015 Plan/Intensity of Service 05/26 Overall shaking/tremors have improved. Continues to have some intermittent tremors worsening with anxiety BP is well controlled on Inderal and Lisinopril PT/OT report overall improving. Continue to encourage strengthening. Code Status Do Not Resuscitate Hospital Course Summary Disclaimer The hospital course summary below is not to be considered part of the above Progress Note. Hospital Course Summary 05/21/[address] Yi, recommendation to increase Clonazepam to 0.75mg three times daily. May consider adding Lamictal later on. This was discussed with Dr Salgado. Continue with current Primidone and propranolol Blood pressure has remained stable on lisinopril 10 milligrams daily Continue with Aspercreme topically for thoracic muscle spasms Continue Celexa, appreciate psychiatric consultation. Continue PT and OT for gait stability and strengthening. Continue with ST for improving dysphagia 05/25/16 Clinically stable. Back spasms improved. Check TSH to complete evaluation of macrocytosis. Blood pressure well-controlled. Continue therapies. LITO ESTEVEZ APRN May 26, 2016 12:39
--- NOTE | 2016-05-26 12:47 | PDIRUTEAM ---
Multidisciplinary Team Meeting Nursing Hx Incontinence: Yes Bladder Goal: 6 Modified [place] Y/N: No Bladder Continent or Incontine: Continent Incontinent Product Used: Pull-up Number of Times Incontinent of: 0 Cleaning Ability-Bladder: 5 Supervision/Setup Bowel Goal: 6 Modified [place] Colostomy Y/N: No Bowel Incontinent/Continent: Continent Bowel Number of Accidents: 0 Number of times Incontinent of: 0 Cleaning Ability-Bowel: 5 Supervision/Setup Bowel Incontinence Management: 1 Total Assistance Toileting Ability: 5 Supervision/Setup Vital Signs Vital Signs Date Time Temp Pulse Resp B/P Pulse Ox O2 Delivery O2 Flow Rate FiO2 05/26/16 08:00 95.4 62 12 135/62 95 05/25/16 22:41 Room Air Current Medications Current Medications Medications (Trade) Dose Ordered Sig/Silviano Route PRN Reason Start Time Stop Time Status Last Admin Dose Admin Docusate Sodium (Colace) 100 mg BID PO 05/18/16 21:00 05/26/16 08:35 Citalopram Hydrobromide (Celexa) 20 mg DAILY PO 05/19/16 09:00 05/26/16 08:35 Lisinopril (Prinivil) 10 mg DAILY PO 05/19/16 09:00 05/26/16 08:35 Lorazepam (Ativan) 0.5 mg Q6HR PRN PO ANXIETY/AGITATION 05/18/16 16:45 05/19/16 05:59 Primidone (Mysoline) 25 mg BID PO 05/18/16 21:00 05/26/16 08:35 Propranolol HCl (Inderal) 10 mg BID PO 05/18/16 21:00 05/26/16 08:36 Multivitamins/ Minerals (Vision) 1 tab DAILY PO 05/19/16 09:00 05/26/16 08:36 Trolamine Salicylate (Aspercreme) 1 applic PRN PRN TOP 05/19/16 09:30 05/20/16 18:34 Clonazepam (Klonopin) 0.5 mg Q8H PO 05/19/16 16:45 05/21/16 15:02 DC 05/21/16 08:16 Clonazepam (Klonopin) 0.75 mg Q8H PO 05/21/16 16:45 05/26/16 08:35 Bisacodyl (Dulcolax) 10 mg DAILY PRN RECTALLY CONSTIPATION 05/22/16 20:45 05/25/16 21:19 Ondansetron HCl (Zofran Odt) 4 mg Q4H PRN PO NAUSEA &/OR VOMITING 05/22/16 22:45 05/22/16 22:46 Comments Doing well with built up utensils and relaxation techniques. Physical Therapy Bed Transfer Ability: 5 Supervision/Setup Bed Transfer Assistance Needed: 1 Person Chair Transfer Ability: 5 Supervision/Setup Chair Transfer Assistance Need: 1 Person Overall Wheelchair Transfer Ab: 4 Minimal Assistance Wheelchair Transfer Assistance: 1 Person Overall Toilet / Commode Trans: 5 Supervision/Setup Ambulation Ability: 4 Minimal Assistance Ambulation Assistance Needed: 1 Person Walk FIM Score Reason: The pt walked 15ft,102ft,and 88ft also with the fww and 4/7 assist. Ambulation Distance: 198 Comments FIMS 5+. Tremors causing less issues during therapy. Occupational Therapy Grooming Ability: 4 Minimal Assistance Bathing Ability: 4 Minimal Assistance Upper Body Dressing Ability: 5 Supervision/Setup Lower Body Dressing Ability: 4 Minimal Assistance Lower Body Dressing Assistance: 1 Person Toileting Assistance Needed: 1 Person Comments FIMS mainly 4's. Unsafe in shower. Inconsistent with ADL's. Tremors increase when she speaks about her sister. Care Plan Condition at time of discharge: Fair IRU Discharge Disposition: Home, self care Interventions/Goals Looking into available hours for home health and community support on discharge. Safety concerns need addressed.\ Barriers: safety, tremors, balance, cognition. Look to d/c if home issues addressed. DENNIS BLANCO MD May 26, 2016 12:46
--- NOTE | 2016-05-26 15:02 | STDAILYN ---
ST Daily Note Date/Time DATE: 05/26/16 TIME: 13:32 Subjective Comment Upon arrival, patient was sitting in the dining room. [place] through the session , patient c/o pain in back. Patient was transferred via FWW back to her room sitting upright in her chair. Elevating her legs and placing a cushion behind her back helped ease the pain. Patient agreed to having graduate clinician provide therapy while being supervised by TORY Wren. Orientations: Person, Place, Cooperative Chief Complaint: Essential Tremors Pain: No (Pt. reported having back pain. Speech therapy walked patient back to room via FWW, elevated legs, and placed a cusion behind back. Patient reported this to help w/ pain) Was Patient Education Provided: Yes Person(s) Educated: Patient Education Subject: Treatment Plan Instruction Understanding Demo: Pt. verbalizes understand Education Comment Patient was educated on treatment plan. Patient verbalized understanding. *Speech Therapy Impressions Custodial Goals: 1. Pt will express needs and wants in a variety of communication settings. 2. Pt will understand basic conversation. 3. Pt will improve breath support for speech. Short Term Objectives: 1. Pt will formulate sentences to describe event or activity with 90% accuracy Patient formulated sentences to describe various wild animals with approximately 85% accuracy. Patient demonstrated mild disfluencies (i.e. part and whole word repetitions) and minimal tremors throughout the conversation. 2. Pt will listen to short story and recall 3/5 facts with 90% accuracy. Patient was read a 2 sentence passage then asked 2 questions regarding each passage. Patient exhibited 57% accuracy and required max. prompts via forced choices and phonemic cues throughout the entire task. 3. Pt will complete diaphragmatic breathing with inhalation (6 seconds) and exhalation 8 seconds on 8/10 trials. Patient was educated on steps of diaphragmatic breathing. Patient completed 10 trials (5 trials at the beginning and 5 trials at the end of the session) with inhalation (6 seconds) and exhalation (6 seconds) with minimal prompts throughout the task. ST Treatment Plan: Communication Retraining, Breathing Exercises ST Treatment Plan Frequency: five times per week Treatment Plan Duration: one week Plan of Care Comment: Extend Plan of Care for 5X week/1week Patient is progressing towards all goals Start Treatment 1: 12:55 Stop Treatment 1: 13:30 Treatment Duration : ST Treatment Charge: Speech Treatment Minutes of Individual Therapy: 35 ST FIM Comprehension Ability: 4 Minimal Assistance Social Interaction: 5 Supervision/Setup Problem Solvin Minimal Assistance Memory: 4 Minimal Assistance Expression Ability: 5 Supervision/Setup Swallowin Supervision/Setup KRYSTA WALDROP May 26, 2016 13:35
[2016-05-26 16:00] VITALS: BP 93/60; PULSE 62; RESP 16; TEMP 97.7; O2SAT 95
--- NOTE | 2016-05-26 17:22 | PNPDOC ---
IRU Subjective Date DATE: 05/23/16 TIME: 0700 Pt seen and evaluated 05/23/16 at approx 0700, note entered today. Subjective Pt is getting to breakfast. Still having tremors and worsening sx with stress. Has been working well with PT and OT. IRU Objective Vital Signs Vital signs Vital Signs Date Time Temp Pulse Resp B/P Pulse Ox O2 Delivery O2 Flow Rate FiO2 05/26/16 16:00 97.7 62 16 93/60 95 Room Air Height (Feet): 5 Height (Inches): 2.00 Weight (Kilograms): 77.900 General General Appearance: Alert, Orientated x 2 Respiratory (Brief) Respiratory: FOUND: clear all bocanegra, equal bilaterally, NOT FOUND: rales Cardiovascular (Brief) Cardiac: FOUND: regular rate, regular rhythm Capillary Refill: <2 sec Laboratory Laboratory Laboratory Tests Test 05/26/16 04:46 White Blood Count 6.0T/MM3 Red Blood Count 3.59M/MM3 Hemoglobin 11.9GM/DL Hematocrit 36.3% Mean Corpuscular Volume 101.1UM3 Mean Corpuscular Hemoglobin 33.1UUG Mean Corpuscular Hemoglobin Concent 32.8GM/DL RDW Standard Deviation 45.0FL Platelet Count 208T/MM3 Mean Platelet Volume 10.0UM3 Immature Granulocyte % (Auto) 0.2% Neutrophils (%) (Auto) 35.9% Lymphocytes (%) (Auto) 52.2% Monocytes (%) (Auto) 8.4% Eosinophils (%) (Auto) 3.0% Basophils (%) (Auto) 0.3% Absolute Immature Granulocyte (auto 0.01T/MM3 Absolute Neutrophils (auto) 2.2T/MM3 Absolute Lymphocytes (auto) 3.1T/MM3 Absolute Monocytes (auto) 0.5T/MM3 Absolute Eosinophils (auto) 0.2T/MM3 Absolute Basophils (auto) 0.0T/MM3 Thyroid Stimulating Hormone (TSH) 2.08MIU/L Assessment & Plan Problems: (1) Gait instability Status: Acute Assessment & Plan: using walker, working with PT and OT (2) Essential tremor Status: Acute Assessment & Plan: We are optomistic that increasing dose of benzodiazepine will help with tremor relating to anxiety. Reeval thursday. (3) Declining functional status Status: Acute Assessment & Plan: Nutrition, PT and OT addressed per plan of care. Code Status Do Not Resuscitate Interventions to Obtain Goals PT Treatment Plan: Therapeutic Exercise, Gait Training, Functional Activities , Patient/Family Education, Balance/Proprioception OT Treatment Plan: ADL's (basic care), Ther. Exercise for ADL's, UE Functional Training, Balance Training, Pt./Family Education, IADL's ST Treatment Plan: Communication Retraining, Breathing Exercises Hospital Course Summary Disclaimer The hospital course summary below is not to be considered part of the above Progress Note. Hospital Course Summary 05/21/[address] Yi, recommendation to increase Clonazepam to 0.75mg three times daily. May consider adding Lamictal later on. This was discussed with Dr Blanco. Continue with current Primidone and propranolol Blood pressure has remained stable on lisinopril 10 milligrams daily Continue with Aspercreme topically for thoracic muscle spasms Continue Celexa, appreciate psychiatric consultation. Continue PT and OT for gait stability and strengthening. Continue with ST for improving dysphagia 05/25/16 Clinically stable. Back spasms improved. Check TSH to complete evaluation of macrocytosis. Blood pressure well-controlled. Continue therapies. DENNIS BLANCO MD May 26, 2016 17:21
--- NOTE | 2016-05-26 17:25 | PNPDOC ---
IRU Subjective Date DATE: 05/26/16 TIME: 17:22 Subjective Improvement over weekend, some decrease in tremor. Pt working with PT and OT, and increasing strength. IRU Objective Vital Signs Vital signs Vital Signs Date Time Temp Pulse Resp B/P Pulse Ox O2 Delivery O2 Flow Rate FiO2 05/26/16 16:00 97.7 62 16 93/60 95 Room Air Telemetry Rhythm: Sinus Rhythm Height (Feet): 5 Height (Inches): 2.00 Weight (Kilograms): 77.900 General General Appearance: Alert, Orientated x 2 Respiratory (Brief) Respiratory: FOUND: clear all bocanegra, equal bilaterally Cardiovascular (Brief) Cardiac: FOUND: regular rate, regular rhythm Capillary Refill: <2 sec Musculoskeletal (Brief) Comments See FIM scores. PT improving overall stregnth. Laboratory Laboratory Laboratory Tests Test 05/26/16 04:46 White Blood Count 6.0T/MM3 Red Blood Count 3.59M/MM3 Hemoglobin 11.9GM/DL Hematocrit 36.3% Mean Corpuscular Volume 101.1UM3 Mean Corpuscular Hemoglobin 33.1UUG Mean Corpuscular Hemoglobin Concent 32.8GM/DL RDW Standard Deviation 45.0FL Platelet Count 208T/MM3 Mean Platelet Volume 10.0UM3 Immature Granulocyte % (Auto) 0.2% Neutrophils (%) (Auto) 35.9% Lymphocytes (%) (Auto) 52.2% Monocytes (%) (Auto) 8.4% Eosinophils (%) (Auto) 3.0% Basophils (%) (Auto) 0.3% Absolute Immature Granulocyte (auto 0.01T/MM3 Absolute Neutrophils (auto) 2.2T/MM3 Absolute Lymphocytes (auto) 3.1T/MM3 Absolute Monocytes (auto) 0.5T/MM3 Absolute Eosinophils (auto) 0.2T/MM3 Absolute Basophils (auto) 0.0T/MM3 Thyroid Stimulating Hormone (TSH) 2.08MIU/L Assessment & Plan Problems: (1) Gait instability Status: Acute Assessment & Plan: See team meeting note, working with PT and OT for safety issues and to increase stability in gait. (2) Essential tremor Status: Acute Assessment & Plan: Some improvement in tremor with benzo. May be due to anxiety issues. discussed these in team meeting, looking for ways to decrease interactions that cause sudden spike in stress as sudden spike in tremors and dysfunction noted simultaneously. (3) Declining functional status Status: Acute Assessment & Plan: Cont PT and OT to help with strength and endurance/ Code Status Do Not Resuscitate Interventions to Obtain Goals PT Treatment Plan: Therapeutic Exercise, Gait Training, Functional Activities , Patient/Family Education, Balance/Proprioception OT Treatment Plan: ADL's (basic care), Ther. Exercise for ADL's, UE Functional Training, Balance Training, Pt./Family Education, IADL's ST Treatment Plan: Communication Retraining, Breathing Exercises Hospital Course Summary Disclaimer The hospital course summary below is not to be considered part of the above Progress Note. Hospital Course Summary 05/21/[address] Yi, recommendation to increase Clonazepam to 0.75mg three times daily. May consider adding Lamictal later on. This was discussed with Dr Blanco. Continue with current Primidone and propranolol Blood pressure has remained stable on lisinopril 10 milligrams daily Continue with Aspercreme topically for thoracic muscle spasms Continue Celexa, appreciate psychiatric consultation. Continue PT and OT for gait stability and strengthening. Continue with ST for improving dysphagia 05/25/16 Clinically stable. Back spasms improved. Check TSH to complete evaluation of macrocytosis. Blood pressure well-controlled. Continue therapies. DENNIS BLANCO MD May 26, 2016 17:25
--- NOTE | 2016-05-26 19:14 | NUR ---
Shift Summary Pt is resting at this time. Ambulates with assist of 1, FWW, and gait belt. Ate well for meals, ambulated to the dining room, needed assist with set up of her tray, took medication with pudding. Worked well with therapy today. She has been continent this shift, able to manage her own clothing and cares. Sat up in the recliner at times this shift. When in bed or the chair the alarm is in use and call light is within reach.
[2016-05-26 20:49] VITALS: BP 121/65; PULSE 65; RESP 16; TEMP 97.5; O2SAT 96
[2016-05-27] MEDS: CLONAZEPAM 0.5 MG TABLET PO SCH ×3 (01:20→17:17)
--- NOTE | 2016-05-27 07:46 | NUR ---
Summary Pt slept well through the night. No tremors or stuttering noted. Pt woke well to take her scheduled 0100 med and stated " it sure is nice to sleep without shaking."
[2016-05-27 08:00] VITALS: BP 127/57; PULSE 60; RESP 18; TEMP 97.4; O2SAT 97
[2016-05-27] MEDS: MULTIVIT + MINERALS (OPTI-GEN) PO SCH (08:51)
[2016-05-27] MEDS: DOCUSATE SODIUM 100 MG CAPSULE PO SCH ×2 (08:51→21:57)
[2016-05-27] MEDS: PRIMIDONE 50 MG TABLET PO SCH ×2 (08:51→21:58)
[2016-05-27] MEDS: LISINOPRIL 10 MG TABLET PO SCH (08:51)
[2016-05-27] MEDS: PROPRANOLOL 10 MG TABLET PO SCH ×2 (08:51→21:57)
--- NOTE | 2016-05-27 11:26 | NUR ---
CM RECEIVED CALL FROM DPOA/SIS IN [employer], FELI. SHE SAID SHE IS UPSET BECAUSE THE PT SEEMS OVER MEDICATED AND SHE DOES NOT THINK THE TREMORS ARE BEING ADDRESSED PROPERLY. SHE ALSO SAID SHE IS UPSET BECAUSE NO ONE HAS COMMUNICATED WITH HER UNLESS SHE CALLS, AND SHE IS THE DPOA. THIS WORKER EXPLAINED: THE MEDICAL CONCERNS WILL BE ADDRESSED WITH THE DOCTOR. EXPLAINED THAT DPOA'S ARE CONTACTED IF THE PATIENTS CANNOT SPEAK FOR THEMSELVES, WHICH HAS NOT BEEN THE CASE WITH THE PT. HOWEVER, THIS WORKER EXPLAINED THIS WILL BE FORWARDED ON TO THE LABELING STRATEGIST. DISCUSSED DC PLANNING: ASKED IF ASSISTED LIVING IS A POSSIBILITY. EXPLAINED THIS WORKER HAS NOT HEARD BACK FROM MEDICAID REGARDING THE HCBS SERVICES, AND THAT PT WILL NEED ASSISTANCE IN THE HOME FOR A SAFE DC. SHE SAID SHE ALSO HAS BEEN TRYING TO REACH THE MEDICAID WORKER SILVIA BUT TO NO AVAIL. SHE GAVE THIS WORKER THE PHONE NUMBER TO [employer]: [phone] THIS WORKER CALLED AND LEFT MESSAGE WITH SILVIA PEÑA, RE: NEED SERVICES RESUMED FOR A SAFE DC. RELAYED CONCERNS TO [facility] AND DR. MARTINS. HE SAID HE WILL CALL FELI.
--- NOTE | 2016-05-27 13:33 | PNF ---
DATE 05/27/[address] Salgado CHIEF COMPLAINT The patient's chief complaint is tremor and jerkiness. HISTORY OF PRESENT ILLNESS The patient has done better on the clonazepam. This has caused her to become slightly oversedated. Patient is able to walk well with a walker. She was able to walk up to 440 steps this morning with no assistance. As per nurse, the patient's tremor and jerkiness improves when she is alone. Her tremor seems to increase around people and when she has a visitor. She has had no severe dizziness or collapse. The patient has been taking Celexa for depression. She had no new focal neurological deficit. There is no fine motor noticed in the hands. ASSESSMENT Intermittent jerkiness and tremor-like activity associated with anxiety. PLAN 1. Decrease clonazepam to 0.5 mg p.o. q.8h. to avoid heavy sedation. Continue primidone 25 mg p.o. b.i.d. This can be increased to 50 mg p.o. b.i.d. if having fine hand tremor. 2. Optimize treatment for anxiety and depression. 3. Provide good fluid intake. 4. Continue physical and occupational therapy. MTDD
--- NOTE | 2016-05-27 14:12 | STDAILYN ---
ST Daily Note Date/Time DATE: 05/27/16 TIME: 13:49 Subjective Comment Patient was met in the dining room and transferred to room via FWW. Patient was in a pleasant mood and had no c/o pain or fatigue. Patient agreed to having graduate clinician provide therapy while be supervised by STREET CLEANING EQUIPMENT OPERATOR Holger. Orientations: Person, Place, Cooperative Chief Complaint: Essential Tremors Pain: No (Patient reported having no pain ) Was Patient Education Provided: Yes Person(s) Educated: Patient Education Subject: Treatment Plan Instruction Understanding Demo: Pt. verbalizes understand Education Comment Patient was educated on treatment plan. Patient verbalized understanding. *Speech Therapy Impressions [facility] Goals: 1. Pt will express needs and wants in a variety of communication settings. 2. Pt will understand basic conversation. 3. Pt will improve breath support for speech. Short Term Objectives: 1. Pt will formulate sentences to describe event or activity with 90% accuracy Patient formulated sentences to describe various animals with approximately 90% accuracy. Patient demonstrated minimal to no disfluencies (i.e. part and whole word repetitions) and minimal tremors throughout the conversation. 2. Pt will listen to short story and recall 3/5 facts with 90% accuracy. Patient was read a 2 sentence passage then asked 2 questions regarding each passage. Patient exhibited 80% accuracy and required mild to moderate prompts via forced choices and phonemic cues throughout the entire task. 3. Pt will complete diaphragmatic breathing with inhalation (6 seconds) and exhalation 8 seconds on 8/10 trials. Patient was educated on steps of diaphragmatic breathing. Patient completed 10 trials (5 trials at the beginning and 5 trials at the end of the session) with inhalation (6 seconds) and exhalation (6 seconds) with minimal prompts throughout the task. ST Treatment Plan: Communication Retraining, Breathing Exercises ST Treatment Plan Frequency: five times per week Treatment Plan Duration: one week Plan of Care Comment: Continue Plan of Care Start Treatment 1: 13:00 Stop Treatment 1: 13:30 Treatment Duration : ST Treatment Charge: Speech Treatment Minutes of Individual Therapy: 30 ST FIM Comprehension Ability: 4 Minimal Assistance Social Interaction: 5 Supervision/Setup Problem Solvin Minimal Assistance Memory: 5 Supervision/Setup Expression Ability: 5 Supervision/Setup Swallowin Supervision/Setup KRYSTA WALDROP May 27, 2016 13:52
--- NOTE | 2016-05-27 16:13 | NUR ---
MARCELL REVIEWED IRU PLAN OF CARE WITH PT. SHE SIGNED AND HAD NO QUESTIONS/CONCERNS ABOUT THIS. DISCUSSED DC PLANNING AND THE POSSIBILITY OF ASSISTED LIVING. SHE SAID THIS WOULD BE UP TO FELI, AND TO CONTACT FELI. RECEIVED CALL FROM MARCIN MURPHY WITH MEDICAID (#[phone]). SHE SAID SHE WORKS WITH [employer]. DISCUSSED POSSIBLE DC PLAN OF ASSISTED LIVING SINCE PT HAS BEEN HAVING LOSS OF BALANCE. SHE SAID SHE WILL FOLLOW UP WITH FELI ABOUT THIS, ALSO. LEFT MESSAGE WITH FELI. Addendum: 05/27/16 at 1619 by REBEKAH MENDOZA ADDITION: JEFFREY SAID THERE WERE CONCERNS FROM FELI ABOUT LACK OF COMMUNICATION AND LACK OF TREATMENT FOR THE TREMORS. THIS WORKER EXPLAINED THAT THESE CONCERNS WERE FORWARDED ON TO THE APPROPRIATE DEPARTMENT, AND THAT THE NEUROLOGIST WAS MADE AWARE OF THIS AND IS TREATING PT.
[2016-05-27 16:24] VITALS: BP 107/64; PULSE 58; RESP 16; TEMP 97.4; O2SAT 96
--- NOTE | 2016-05-27 19:44 | NUR ---
SHIFT SUMMARY PT HAS BEEN PLEASANT AND COOPERATIVE. HAS BEEN OUT TO DINING ROOM FOR MEALS. HAS WORKED WITH THERAPIES. AMBULATES WITH FWW AND GAIT BELT.
[2016-05-27 20:03] VITALS: BP 131/69; PULSE 72; RESP 16; TEMP 97.5; O2SAT 95
[2016-05-27] MEDS: BISACODYL 10 MG SUPPOSITORY RECTALLY PRN (20:03)
[2016-05-27] MEDS ORDERED: PHENYLEPHRINE RECTAL SUPPOSITORY RECTALLY ONE (23:15)
[2016-05-27] MEDS ORDERED: MILK OF MAGNESIA 30 ML SUSP PO PRN (23:45)
[2016-05-28] MEDS: CLONAZEPAM 0.5 MG TABLET PO SCH ×3 (01:36→17:37)
--- NOTE | 2016-05-28 03:12 | NUR ---
Status Pt complaint of feeling of constipation. 2 trips to the BR early this shift one unproductive and the second with very small stool and smear of red. PRN suppository Dulcolax given. Pt able to pass small stool about 30min later. Pt complaint of feeling of full rectum. Digital evacuation of rectum produced a moderate amount of stool. Some stool still present beyond reach of digital evacuation. Pt stated she felt better. Pt went to sleep. Pt had a bowel accident requiring changing of gown, brief, and pad. Orders received for Anusol and Milk of Mag. Pt up to BR and produced moderate formed stool. Pt declined MOM wanting to wait till morning to see what would happen. Anusol given.
--- NOTE | 2016-05-28 06:16 | NUR ---
Summary Pt has slept well since last BM. Pt had snack of pudding with 0100 med administration. Pt denies pain and is sleeping at this time.
[2016-05-28 08:14] VITALS: PULSE 84; RESP 18
[2016-05-28 08:15] VITALS: BP 119/62; PULSE 77; RESP 18; TEMP 97.7; O2SAT 93
[2016-05-28] MEDS: PROPRANOLOL 10 MG TABLET PO SCH ×2 (08:57→22:09)
[2016-05-28] MEDS: LISINOPRIL 10 MG TABLET PO SCH (08:57)
[2016-05-28] MEDS: PRIMIDONE 50 MG TABLET PO SCH ×2 (08:57→22:08)
[2016-05-28] MEDS: DOCUSATE SODIUM 100 MG CAPSULE PO SCH ×2 (08:57→22:08)
[2016-05-28] MEDS: MULTIVIT + MINERALS (OPTI-GEN) PO SCH (08:57)
--- NOTE | 2016-05-28 12:23 | PNPDOC ---
Subjective Date DATE: 05/28/16 TIME: 12:22 Subjective Shelley is seen today sitting in her room sitting in a chair. She has just finished OT and a shower. Her tremors are minimal. She reports that she is eating and drinking well. She had a rough night as nursing had to perform digital stimulation for her to have a bowel movement. She reports that she is feeling much better today. She denies chest pain and shortness of air. Objective Vital Signs Vital signs Vital Signs Date Time Temp Pulse Resp B/P Pulse Ox O2 Delivery O2 Flow Rate FiO2 05/28/16 08:15 97.7 77 18 119/62 93 Room Air Height (Feet): 5 Height (Inches): 2.00 Weight (Kilograms): 77.600 General General Appearance: Alert, Orientated x 3, Well Nourished, Cooperative, No Acute Distress Respiratory (Brief) Respiratory: FOUND: clear all bocanegra, equal bilaterally Cardiovascular (Brief) Cardiac: FOUND: regular rate, regular rhythm Abdomen (Brief) Abdominal: FOUND: BS normo active x4, soft Musculoskeletal (Brief) Musculoskeletal: FOUND: extremities move equally Integumentary (Brief) Integumentary: FOUND: dry, pink, warm Neurologic (Brief) Neurological: FOUND: cranial 2-12 intact, other (minimal tremors) Psychiatric (Brief) Psychiatric: FOUND: alert, normal affect, oriented Assessment & Plan Problems: (1) Essential tremor Status: Acute (2) Declining functional status Status: Acute (3) Dysphagia Status: Acute (4) HTN (hypertension) Status: Chronic (5) Gait instability Status: Acute (6) Constipation Status: Resolved (7) Anxiety Status: Chronic (8) Depression Status: Chronic (9) Osteoarthritis Status: Chronic (10) Obesity (BMI 30-39.9) Status: Chronic (11) Macrocytosis without anemia Assessment & Plan: B-12 565 in December 2015 Plan/Intensity of Service 05/28 Her tremors have improved immensely. Continue with Clonazepam 0.5mg every 8 hours and Primidone 25mg twice daily. Appreciate continued neurologic recommendations as per Dr. Yi. To prevent further impactions we will add MiraLax daily. Continue Colace daily. MOM and Dulcolax suppositories PRN bowel motivation. BP is well controlled on Inderal and Lisinopril, currently 119/62. Continue to encourage strengthening and function improvement with PT and OT. Code Status Do Not Resuscitate Hospital Course Summary Disclaimer The hospital course summary below is not to be considered part of the above Progress Note. Hospital Course Summary 05/21/[address] Yi, recommendation to increase Clonazepam to 0.75mg three times daily. May consider adding Lamictal later on. This was discussed with Dr Salgado. Continue with current Primidone and propranolol Blood pressure has remained stable on lisinopril 10 milligrams daily Continue with Aspercreme topically for thoracic muscle spasms Continue Celexa, appreciate psychiatric consultation. Continue PT and OT for gait stability and strengthening. Continue with ST for improving dysphagia 05/25/16 Clinically stable. Back spasms improved. Check TSH to complete evaluation of macrocytosis. Blood pressure well-controlled. Continue therapies. 05/28 Her tremors have improved immensely. Continue with Clonazepam 0.5mg every 8 hours and Primidone 25mg twice daily. Appreciate continued neurologic recommendations as per Dr. Yi. To prevent further impactions we will add MiraLax daily. Continue Colace daily. MOM and Dulcolax suppositories PRN bowel motivation. BP is well controlled on Inderal and Lisinopril, currently 119/62. Continue to encourage strengthening and function improvement with PT and OT. LITO ESTEVEZ APRN May 28, 2016 12:23
[2016-05-28 16:00] VITALS: BP 103/42; PULSE 62; RESP 13; TEMP 97.6; O2SAT 97
--- NOTE | 2016-05-28 16:48 | NUR ---
CM THIS WORKER IS ATTEMPTING TO SCHEDULE A MEETING WITH DR. MARTINS AND THE FAMILY. THIS WORKER PAGED DR. MARTINS; AWAITING A PAGE BACK. THIS WORKER ALSO COMMUNICATED VIA EMAIL WITH BEVEL OPERATOR THE ON-GOING CONCERNS OF FAMILY. THIS WORKER WAS INFORMED THAT THE SECOND OPINION WILL NEED TO BE DONE ON AN OUTPT BASIS. RECEIVED CALL FROM TERESA EDMOND. THIS WORKER UPDATED HER: NO MEETING TIME HAS BEEN SET YET, AND THE SECOND OPINION WILL NEED TO BE DONE OUTPT. SHE SAID SHE TOOK THE DAY OFF THURSDAY AND WOULD LIKE A MEETING SCHEDULED ANYTIME ON THAT DAY. SHE ALSO SAID SHE HAS EXPLORED DC OPTIONS AND WOULD LIKE PT TO GO TO [facility] IN [place], BUT THIS COULD NOT BE DONE THIS WEEK. MAYBE NEXT WEEK.
--- NOTE | 2016-05-28 19:31 | NUR ---
Shift Summary Pt is resting at this time. Has denied pain this shift. Ambulates with assist of 1, FWW, and gait belt. Ate well for meals, ambulated to the dining room, needed assist with set up of her tray, took medication with pudding. Worked well with therapy today. She has been continent this shift, able to manage her own clothing and needed minimal assist with hygiene cares. Sat up in the recliner at times this shift. When in bed or the chair the alarm is in use and call light is within reach
[2016-05-28 20:53] VITALS: BP 122/74; PULSE 60; RESP 20; TEMP 98.1; O2SAT 96
[2016-05-29] MEDS: CLONAZEPAM 0.5 MG TABLET PO SCH ×3 (01:02→17:17)
--- NOTE | 2016-05-29 06:44 | NUR ---
Summary Pt denies feeling of constipation, states she passed more stool today and feels better now. Pt denies needing MOM. Educated pt of s/s to report rt constipation and hemorrhoids. Pt took meds well with chocolate pudding. Pt stated she has slept well. Pt in bed sleeping at this time.
[2016-05-29 08:00] VITALS: BP 105/58; PULSE 68; RESP 18; TEMP 97.4; O2SAT 96
[2016-05-29] MEDS: DOCUSATE SODIUM 100 MG CAPSULE PO SCH ×2 (09:01→20:37)
--- NOTE | 2016-05-29 09:01 | STDAILYN ---
ST Daily Note Date/Time DATE: 05/28/16 TIME: 11:24 Subjective Comment Patient was laying down in bed upon arrival. OT just finished session. Patient was repositioned to 90 degrees in bed for breathing exercises. Patient had no c/ o pain; however, she did report fatigue due to getting up throughout the night. Graduate clinician provided therapy while being supervised by FORM BUILDER HELPER Arabella. Orientations: Person, Place, Alert Chief Complaint: Essential Tremors Pain: No (Pt. reported having no pain ) Was Patient Education Provided: Yes Person(s) Educated: Patient Education Subject: Treatment Plan Instruction Understanding Demo: Pt. verbalizes understand Education Comment Patient was educated on treatment plan. Patient verbalized understanding. *Speech Therapy Impressions [facility] Goals: 1. Pt will express needs and wants in a variety of communication settings. 2. Pt will understand basic conversation. 3. Pt will improve breath support for speech. Short Term Objectives: 1. Pt will formulate sentences to describe event or activity with 90% accuracy Patient formulated sentences with approximately 90% accuracy. Patient demonstrated minimal to no disfluencies (i.e. part and whole word repetitions) and minimal tremors throughout the conversation. 2. Pt will listen to short story and recall 3/5 facts with 90% accuracy. Patient was read a 2 sentence passage then asked 2 questions regarding each passage. Patient exhibited 65% accuracy and required moderate to maximum prompts via forced choices and phonemic cues throughout the entire task. 3. Pt will complete diaphragmatic breathing with inhalation (6 seconds) and exhalation 8 seconds on 8/10 trials. Patient was educated on steps of diaphragmatic breathing. Patient completed 10 trials (5 trials at the beginning and 5 trials at the end of the session) with inhalation (6 seconds) and exhalation (6 seconds) with minimal prompts throughout the task. Patient demonstrated soft voicing, tried vocal fold adduction exercises. Vocal quality remained soft. ST Treatment Plan: Communication Retraining, Breathing Exercises ST Treatment Plan Frequency: five times per week Treatment Plan Duration: one week Plan of Care Comment: Continue Plan of Care Start Treatment 1: 10:00 Stop Treatment 1: 10:30 Treatment Duration : ST Treatment Charge: Speech Treatment Minutes of Individual Therapy: 30 ST FIM Comprehension Ability: 4 Minimal Assistance Social Interaction: 6 Modified [place] Problem Solvin Minimal Assistance Memory: 4 Minimal Assistance Expression Ability: 5 Supervision/Setup Swallowin Supervision/Setup KRYSTA WALDROP May 28, 2016 11:30
[2016-05-29] MEDS: MULTIVIT + MINERALS (OPTI-GEN) PO SCH (09:02)
[2016-05-29] MEDS: PROPRANOLOL 10 MG TABLET PO SCH ×2 (09:02→20:37)
[2016-05-29] MEDS: LISINOPRIL 10 MG TABLET PO SCH (09:02)
[2016-05-29] MEDS: PRIMIDONE 50 MG TABLET PO SCH ×2 (09:02→20:37)
--- NOTE | 2016-05-29 09:02 | STDAILYN ---
ST Daily Note Date/Time DATE: 05/29/16 TIME: 08:48 Subjective Comment Upon arrival patient was met in the dining room eating breakfast. Patient had no c/o pain or fatigue, reported she "slept so well" last night. Graduate clinician provided therapy while being supervised by FOREIGN LANGUAGE STENOGRAPHER Arabella. Orientations: Person, Place, Cooperative Chief Complaint: Essential Tremors Pain: No (Pt. reported having no pain ) Was Patient Education Provided: Yes Person(s) Educated: Patient Education Subject: Treatment Plan Instruction Understanding Demo: Pt. verbalizes understand Education Comment Patient was educated on breathing exercises and meeting dysphagia goals. Patient verbalized understanding. *Speech Therapy Impressions Helicopter Crew Chief Goal: Pt will maintain nutrition and hydration of the least restrictive diet while demonstrating no s/s of aspiration for 5 consecutive trials. Short Term Goal: Pt will consume a soft/chopped diet consistency with thin liquids without outward signs of aspiration at bedside in 85% of trials. Pt will demonstrate 3 out of 4 components necessary for a safe swallow as listed from the following: small bites/sips, alternate between solids/liquids, sit upright during/after meals. Patient was sitting upright in chair in the dining room for breakfast. Breakfast consisted of scrambled eggs, oatmeal with sugar, and iced tea. Patient utilized built-up utensil to assist with meal. Patient demonstrated adequate labial closure, fair mastication, and laryngeal elevation was present during all trials and consistencies. Patient alternated between solids/liquids, took small bites and sips, in addition to remaining upright during and after her meal. No clinical s/s of aspiration were observed during this session. Patient has met dysphagia goals. Jail Goals: 1. Pt will express needs and wants in a variety of communication settings. 2. Pt will understand basic conversation. 3. Pt will improve breath support for speech. Short Term Objectives: 1. Pt will formulate sentences to describe event or activity with 90% accuracy Patient formulated sentences to describe past history with approximately 90% accuracy. Patient demonstrated minimal to no disfluencies (i.e. part and whole word repetitions) and minimal tremors throughout the conversation. 2. Pt will listen to short story and recall 3/5 facts with 90% accuracy. Not targeted during therapy 3. Pt will complete diaphragmatic breathing with inhalation (6 seconds) and exhalation 8 seconds on 8/10 trials. Patient was educated on steps of diaphragmatic breathing. Patient completed 6 trials (3 trials at the beginning and 3 trials at the end of the session) with inhalation (6 seconds) and exhalation (6 seconds) with minimal prompts throughout the task. ST Treatment Plan: Communication Retraining, Breathing Exercises ST Treatment Plan Frequency: five times per week Treatment Plan Duration: one week Plan of Care Comment: Continue Plan of Care for one more day; Patient meeting dysphagia goals, plan to discharge patient tomorrow (05/30) Start Treatment 1: 08:10 Stop Treatment 1: 08:45 Treatment Duration : ST Treatment Charge: Swallow Treatment Minutes of Individual Therapy: 35 ST FIM Comprehension Ability: 4 Minimal Assistance Social Interaction: 5 Supervision/Setup Problem Solvin Minimal Assistance Memory: 4 Minimal Assistance Expression Ability: 5 Supervision/Setup Swallowin Minimal Assistance KRYSTA WALDROP May 29, 2016 08:51
--- NOTE | 2016-05-29 10:55 | NUR ---
CM ARRANGED FAMILY MEETING WITH DR. BLANCO, TOMORROW AT 9:30 AM. CALLED TERESA EDMOND, WHO SAID SHE CAN MAKE IT AT THAT TIME. EXPLORATORY CALL TO [facility], SPOKE WITH KASHIF PETIT. DID NOT PROVIDE PT NAME BUT ASKED WHAT IS NEEDED FOR AN ADMISSION. SHE SAID FOR NEW ADMISSIONS, SHE NEEDS TO COME OUT AND EVAL THE PT FOR APPROPRIATENESS. THIS WORKER EXPLAINED THIS WORKER WILL NEED TO CONFIRM WITH PT AND FAMILY THAT THIS IS THE DC PLAN, THEN WILL CALL HER BACK. SHE SAID THIS IS OK, AND SHE DOES HAVE OPENINGS.
[2016-05-29 16:03] VITALS: BP 81/40; PULSE 58; RESP 16; TEMP 97.7; O2SAT 98
[2016-05-29 17:15] VITALS: BP 115/60; PULSE 80
--- NOTE | 2016-05-29 18:50 | PNPDOC ---
IRU Subjective Date DATE: 05/28/16 TIME: 19:40 Pt evaluated and treated 05/28/16 at approx 19:40, note entered today. Subjective Patient was resting in bed, her twin sister was present. There is some obvious stress in the room, patient did have significant stutter and tremor. She has been working with physical therapy. IRU Objective Vital Signs Vital signs Vital Signs Date Time Temp Pulse Resp B/P Pulse Ox O2 Delivery O2 Flow Rate FiO2 05/29/16 17:15 80 115/60 05/29/16 16:03 97.7 16 98 Room Air Height (Feet): 5 Height (Inches): 2.00 Weight (Kilograms): 77.600 General General Appearance: Alert, Orientated x 2 Respiratory (Brief) Respiratory: FOUND: clear all bocanegra, equal bilaterally, NOT FOUND: rales Cardiovascular (Brief) Cardiac: FOUND: regular rate, regular rhythm Capillary Refill: <2 sec Neurologic (Brief) Comments Obvious tremor and shaking noted, patient's voice also had tremor Assessment & Plan Problems: (1) Gait instability Status: Acute Assessment & Plan: Physical therapy and occupational therapy working with patient. Staff noted interaction with twins sister that seems to cause increase in tremor and anxiety. (2) Essential tremor Status: Acute Assessment & Plan: Tremor seems to have large emotional complement. Increasing Xanax to 0.75 mg 3 times a day may have actually helped, however when patient is interacting with her sister, tremoring definitely increases. (3) Declining functional status Status: Acute Assessment & Plan: Physical therapy and occupational therapy worked with patient to increase strength and stability. They will continue to do so according to care plan. DVT Prophylaxis: SCD'S Code Status Do Not Resuscitate Interventions to Obtain Goals PT Treatment Plan: Therapeutic Exercise, Gait Training, Functional Activities , Patient/Family Education, Balance/Proprioception OT Treatment Plan: ADL's (basic care), Ther. Exercise for ADL's, UE Functional Training, Balance Training, Pt./Family Education, IADL's ST Treatment Plan: Communication Retraining, Breathing Exercises Hospital Course Summary Disclaimer The hospital course summary below is not to be considered part of the above Progress Note. Hospital Course Summary 05/21/[address] Yi, recommendation to increase Clonazepam to 0.75mg three times daily. May consider adding Lamictal later on. This was discussed with Dr Blanco. Continue with current Primidone and propranolol Blood pressure has remained stable on lisinopril 10 milligrams daily Continue with Aspercreme topically for thoracic muscle spasms Continue Celexa, appreciate psychiatric consultation. Continue PT and OT for gait stability and strengthening. Continue with ST for improving dysphagia 05/25/16 Clinically stable. Back spasms improved. Check TSH to complete evaluation of macrocytosis. Blood pressure well-controlled. Continue therapies. 05/28 Her tremors have improved immensely. Continue with Clonazepam 0.5mg every 8 hours and Primidone 25mg twice daily. Appreciate continued neurologic recommendations as per Dr. Yi. To prevent further impactions we will add MiraLax daily. Continue Colace daily. MOM and Dulcolax suppositories PRN bowel motivation. BP is well controlled on Inderal and Lisinopril, currently 119/62. Continue to encourage strengthening and function improvement with PT and OT. DENNIS BLANCO MD May 29, 2016 18:50
--- NOTE | 2016-05-29 19:00 | NUR ---
SHIFT SUMMARY PATIENT ALERT AND ORIENTED. DENIES PAIN. ATE MEALS ADEQUATELY. UP WITH ONE ASSIST WITH GAIT BELT AND WALKER. LARGE BM TODAY. WILL CONT TO MONITOR.
[2016-05-29 20:00] VITALS: BP 111/66; PULSE 58; RESP 14; TEMP 98.3; O2SAT 94
[2016-05-30] MEDS: CLONAZEPAM 0.5 MG TABLET PO SCH ×4 (03:30→23:21)
--- NOTE | 2016-05-30 03:30 | NUR ---
Patient awoke to use restroom and took 0045 scheduled Klonopin at this time.
--- NOTE | 2016-05-30 06:20 | NUR ---
SHIFT SUMMARY Shelley is A/Ox3. She ambulates with min assist due to potential loss of balance and FWW to bathroom. Able to get back into bed from seated position on her own. Needs supervision for transfers. No incont. or accidents this shift. Takes meds whole in pudding. Shelley slept soundly during noc except when up to bathroom. Used call light appropriately and was cont. of b/b.
[2016-05-30 08:18] VITALS: BP 131/64; PULSE 65; RESP 16; TEMP 97.6; O2SAT 96
[2016-05-30] MEDS: DOCUSATE SODIUM 100 MG CAPSULE PO SCH ×2 (08:21→20:55)
[2016-05-30] MEDS: MULTIVIT + MINERALS (OPTI-GEN) PO SCH (08:21)
[2016-05-30] MEDS: PRIMIDONE 50 MG TABLET PO SCH ×2 (08:21→20:55)
[2016-05-30] MEDS: PROPRANOLOL 10 MG TABLET PO SCH ×2 (08:21→20:55)
[2016-05-30] MEDS: LISINOPRIL 10 MG TABLET PO SCH (08:21)
--- NOTE | 2016-05-30 11:49 | NUR ---
CM FAMILY MEETING HELD. PRESENT WERE: DR. BLANCO, IRU DIRECTOR, THIS WORKER, AND PTS DPOA'S (DERIK AND FELI). DERIK AND FELI EXPRESSED FRUSTRATION AT THE LACK OF COMMUNICATION. DR. BLANCO ASSURED THEM THAT HE WILL UPDATE THEM AND THEY CAN ALSO CALL HIM. THEY EXPRESSED CONCERN OVER PT'S CURRENT MEDICAL TREATMENT OF HER TREMORS. DR. BLANCO ADDRESSED THIS CONCERN TO THEIR SATISFACTION. THEY HAD CONCERNS OVER PT'S MEDICATIONS. DR. BLANCO REVIEWED ALL OF THESE CONCERNS, AND THEY EXPRESSED UNDERSTANDING AND SATISFACTION. DR. BLANCO ASKED IF THEY HAD ANY OTHER QUESTIONS OR CONCERNS, AND DERIK AND FELI BOTH STATED NO. DR. BLANCO AGAIN STATED HE WILL CALL THEM AND THEY CAN CALL HIM, ALSO. THIS WORKER THEN ADDRESSED DC PLANNING. THEY AGREED THAT THEIR PLAN IS GOING TO BE MOVING PT INTO THE [facility]. FELI SAID THIS HOME ACCEPTS THE MEDICAID PROGRAM. THEY BOTH GAVE PERMISSION FOR THIS WORKER TO CONTACT THE [facility] FAMILY PRACTICE NURSE PRACTITIONER (KASHIF) FOR THE ASSESSMENT, PROVIDE RECORDS TO HER NEEDED, AND TO REQUEST A CARE ASSESSMENT. THIS WORKER AND IRU DIRECTOR ASKED IF THEY HAD ANY FURTHER QUESTIONS/CONCERNS, AND THEY STATED NO. THEY THANKED US FOR OUR TIME. LEFT MESSAGE WITH KASHIF PETIT, RE: CALL TO SCHEDULE THE ASSESSMENT.
--- NOTE | 2016-05-30 12:04 | NUR ---
CM CALLED EMILIA AT [facility], REQUESTED CARE ASSESSMENT, MAKING SPECIAL MENTION TO CONTACT FELI FOR THE EVALUATION.
--- NOTE | 2016-05-30 12:04 | STDAILYN ---
ST Daily Note Date/Time DATE: 05/30/16 TIME: 11:44 Subjective Comment Upon arrival, patient was sitting upright in her wheelchair. Brother and sister- in-law were present mid session. Patient had no c/o pain or fatigue and was in a pleasant mood. Graduate clinician provided therapy while being supervised by FOOT SPECIALIST Holger. Orientations: x 3, Cooperative Chief Complaint: Essential Tremors Pain: No (Pt. reported having no pain ) Was Patient Education Provided: Yes Person(s) Educated: Patient, Spouse/significant other (brother and sister-in- law) Education Subject: Treatment Plan Instruction Understanding Demo: Pt. verbalizes understand, Famly/Cargvr verb underst Education Comment Patient, brother, and [id number] were educated on breathing exercises and comprehension goals. All verbalized understanding. *Speech Therapy Impressions Computer Training Specialist Goals: 1. Pt will express needs and wants in a variety of communication settings. 2. Pt will understand basic conversation. 3. Pt will improve breath support for speech. Short Term Objectives: 1. Pt will formulate sentences to describe event or activity with 90% accuracy Patient formulated sentences with approximately 95% accuracy. Patient demonstrated minimal to no disfluencies (i.e. part and whole word repetitions) and minimal tremors throughout the conversation. 2. Pt will listen to short story and recall 3/5 facts with 90% accuracy. Patient was read a 2 sentence passage then asked 2 questions regarding each passage. Patient exhibited 85% accuracy and required moderate to maximum prompts via forced choices and phonemic cues throughout the entire task. 3. Pt will complete diaphragmatic breathing with inhalation (6 seconds) and exhalation 8 seconds on 8/10 trials. Patient was educated on steps of diaphragmatic breathing. Patient completed 10 trials (5 trials at the beginning and 5 trials at the end of the session) with inhalation (5 seconds) and exhalation (5 seconds) with minimal prompts throughout the task. ST Treatment Plan: Communication Retraining ST Treatment Plan Frequency: five times per week Treatment Plan Duration: one week Plan of Care Comment: Patient meeting goals; will extend Plan of Care of an additional 3 days Start Treatment 1: 11:10 Stop Treatment 1: 11:40 Treatment Duration : ST Treatment Charge: Speech Treatment Minutes of Individual Therapy: 30 ST FIM Comprehension Ability: 5 Supervision/Setup Social Interaction: 5 Supervision/Setup Problem Solvin Minimal Assistance Memory: 4 Minimal Assistance Expression Ability: 5 Supervision/Setup Swallowin Supervision/Setup KRYSTA WALDROP May 30, 2016 11:48
--- NOTE | 2016-05-30 12:47 | PNPDOC ---
Subjective Date DATE: 05/30/16 TIME: 12:42 Subjective Shelley is seen today sitting in the dining cormier eating her lunch. She reports that she is doing well and that her tremors are better. She feels as though she is getting stronger. She also reports that the Miralax is working well for her, she denies nausea, vomiting or diarrhea. She denies chest pain or shortness of breath. She has minimal tremors upon exam. Objective Vital Signs Vital signs Vital Signs Date Time Temp Pulse Resp B/P Pulse Ox O2 Delivery O2 Flow Rate FiO2 05/30/16 08:18 97.6 65 16 131/64 96 Room Air Height (Feet): 5 Height (Inches): 2.00 Weight (Kilograms): 77.600 General General Appearance: Alert, Orientated x 3, Cooperative, No Acute Distress Respiratory (Brief) Respiratory: FOUND: clear all bocanegra, equal bilaterally Cardiovascular (Brief) Cardiac: FOUND: regular rate, regular rhythm Abdomen (Brief) Abdominal: FOUND: BS normo active x4, soft Musculoskeletal (Brief) Musculoskeletal: FOUND: other (intermittent tremors) Integumentary (Brief) Integumentary: FOUND: dry, pink, warm Neurologic (Brief) Neurological: FOUND: cranial 2-12 intact Psychiatric (Brief) Psychiatric: FOUND: alert, normal affect, oriented Assessment & Plan Problems: (1) Essential tremor Status: Acute (2) Declining functional status Status: Acute (3) Dysphagia Status: Acute (4) HTN (hypertension) Status: Chronic (5) Gait instability Status: Acute (6) Constipation Status: Resolved (7) Anxiety Status: Chronic (8) Depression Status: Chronic (9) Osteoarthritis Status: Chronic (10) Obesity (BMI 30-39.9) Status: Chronic (11) Macrocytosis without anemia Assessment & Plan: B-12 565 in December 2015 Plan/Intensity of Service 05/30 Her tremors have improved greatly. Continue with Clonazepam 0.5mg every 8 hours and Primidone 25mg twice daily. Appreciate continued neurologic recommendations as per Dr. Yi. Continue MiraLax and Colace daily. MOM and Dulcolax suppositories PRN bowel motivation. BP is well controlled on Inderal and Lisinopril, currently 111/66. Continue to encourage strengthening and function improvement with PT and OT. Code Status Do Not Resuscitate Hospital Course Summary Disclaimer The hospital course summary below is not to be considered part of the above Progress Note. Hospital Course Summary 05/21/[address] Yi, recommendation to increase Clonazepam to 0.75mg three times daily. May consider adding Lamictal later on. This was discussed with Dr Salgado. Continue with current Primidone and propranolol Blood pressure has remained stable on lisinopril 10 milligrams daily Continue with Aspercreme topically for thoracic muscle spasms Continue Celexa, appreciate psychiatric consultation. Continue PT and OT for gait stability and strengthening. Continue with ST for improving dysphagia 05/25/16 Clinically stable. Back spasms improved. Check TSH to complete evaluation of macrocytosis. Blood pressure well-controlled. Continue therapies. 05/28 Her tremors have improved immensely. Continue with Clonazepam 0.5mg every 8 hours and Primidone 25mg twice daily. Appreciate continued neurologic recommendations as per Dr. Yi. To prevent further impactions we will add MiraLax daily. Continue Colace daily. MOM and Dulcolax suppositories PRN bowel motivation. BP is well controlled on Inderal and Lisinopril, currently 119/62. Continue to encourage strengthening and function improvement with PT and OT. LITO ESTEVEZ APRN May 30, 2016 12:45
[2016-05-30 16:42] VITALS: BP 119/53; PULSE 56; RESP 16; TEMP 97.6; O2SAT 97
--- NOTE | 2016-05-30 18:43 | NUR ---
SHIFT SUMMARY PATIENT ALERT AND ORIENTED AND COOPERATIVE. DENIES PAIN, UP WITH ONE ASSIST WITH GAIT BELT AND WALKER. ATE MEALS WITHOUT PROBLEM. TOOK PILLS IN CHOCOLATE PUDDING WITHOUT PROBLEM. WILL CONT TO MONITOR.
[2016-05-30 22:52] VITALS: BP 104/63; PULSE 57; RESP 16; TEMP 97.1; O2SAT 97
--- NOTE | 2016-05-31 05:05 | NUR ---
CHART CHECK 24HR chart check completed.
[2016-05-31] MEDS: CLONAZEPAM 0.5 MG TABLET PO SCH ×3 (06:07→23:12)
--- NOTE | 2016-05-31 06:43 | NUR ---
SHIFT SUMMARY Shelley slept well through the night. Awoke only at 6 for bathroom and meds. She was continent of bowel and bladder. Takes meds whole in kirill. pudding. Ambulates with gait belt and FWW. Requires some steadying with transfers at times.
[2016-05-31 08:15] VITALS: PULSE 63; RESP 16
[2016-05-31 08:16] VITALS: BP 120/54; PULSE 63; RESP 16; TEMP 98.7; O2SAT 93
[2016-05-31] MEDS: MULTIVIT + MINERALS (OPTI-GEN) PO SCH (08:57)
[2016-05-31] MEDS: PROPRANOLOL 10 MG TABLET PO SCH ×2 (08:57→21:43)
[2016-05-31] MEDS: DOCUSATE SODIUM 100 MG CAPSULE PO SCH ×2 (08:57→21:43)
[2016-05-31] MEDS: LISINOPRIL 10 MG TABLET PO SCH (08:58)
[2016-05-31] MEDS: PRIMIDONE 50 MG TABLET PO SCH ×2 (08:58→21:44)
[2016-05-31 16:00] VITALS: BP 104/53; PULSE 51; RESP 16; TEMP 97.8; O2SAT 95
--- NOTE | 2016-05-31 18:26 | NUR ---
Shift Summary Pt ambulates well with contact guard assist of 1, FWW, and gait belt. Has been continent of bowel and bladder this shift, able to manage her own clothing and cares. Ate well for meals, did not need assist with her tray, ambulates to the dining room. Denied pain this shift. Managed her own shower with only assist to wash her back. Got her own underwear and pants on, needed assist with her bra but was able to manage her own top. Ambulated in the halls with contact guard assist, FWW, and gait belt this afternoon; walked to the medical unit, then to the main cormier, back to IRU, then to her room; all of this done with no break. When in bed or the chair the alarm is in use and call light is within reach.
[2016-05-31 20:10] VITALS: PULSE 58; RESP 16
[2016-06-01] VITALS: BP 107/59; PULSE 58; RESP 16; TEMP 97.5; O2SAT 97
--- NOTE | 2016-06-01 04:14 | NUR ---
CHART CHECK 24hr chart check complete
--- NOTE | 2016-06-01 05:16 | NUR ---
SHIFT SUMMARY Patient has slept well this shift. Sat up crocheting. Very child-like in her conversation. Cont. of b/b. Takes meds whole in pudding. Ambulated with FWW w/ assist of 1. Performed own toileting tasks and clothing management as well as transfers.
[2016-06-01] MEDS: CLONAZEPAM 0.5 MG TABLET PO SCH ×3 (06:17→21:40)
[2016-06-01 07:33] VITALS: BP 113/56; PULSE 63; RESP 14; TEMP 98.4; O2SAT 92
[2016-06-01 08:00] VITALS: PULSE 63; RESP 14
[2016-06-01] MEDS: LISINOPRIL 10 MG TABLET PO SCH (08:25)
[2016-06-01] MEDS: MULTIVIT + MINERALS (OPTI-GEN) PO SCH (08:25)
[2016-06-01] MEDS: PROPRANOLOL 10 MG TABLET PO SCH ×2 (08:25→21:40)
[2016-06-01] MEDS: DOCUSATE SODIUM 100 MG CAPSULE PO SCH ×2 (08:25→21:00)
[2016-06-01] MEDS: PRIMIDONE 50 MG TABLET PO SCH ×2 (08:25→21:40)
[2016-06-01 15:57] VITALS: BP 96/48; PULSE 62; RESP 16; TEMP 97.7; O2SAT 98
--- NOTE | 2016-06-01 18:33 | NUR ---
Shift Summary Pt ambulates well with contact guard assist of 1, FWW, and gait belt. Has been continent this shift able to manage her own clothing and cares. Ate well for meals, did not need assist with her tray, ambulates to the dining room. Denied pain this shift. Able to give herself a bag bath this morning, did need assist with her back. Got her own underwear and pants on, needed assist with her bra but was able to manage her own top. When in bed or the chair the alarm is in use and call light is within reach.
[2016-06-01 19:31] VITALS: BP 110/50; PULSE 63; RESP 18; TEMP 97.3; O2SAT 98
--- NOTE | 2016-06-01 20:46 | PNPDOC ---
IRU Subjective Date DATE: 06/01/16 TIME: 20:44 Subjective Out to eat in dining room today, relaxed and comfortable. IRU Objective Vital Signs Vital signs Vital Signs Date Time Temp Pulse Resp B/P Pulse Ox O2 Delivery O2 Flow Rate FiO2 06/01/16 15:57 97.7 62 16 96/48 98 Room Air Telemetry Rhythm: Sinus Rhythm Height (Feet): 5 Height (Inches): 2.00 Weight (Kilograms): 77.600 General General Appearance: Alert Respiratory (Brief) Respiratory: FOUND: clear all bocanegra, equal bilaterally Cardiovascular (Brief) Cardiac: FOUND: regular rate, regular rhythm Laboratory Laboratory Laboratory Tests Test 05/30/16 22:52 Glucometer 251mg/dL Assessment & Plan Problems: (1) Gait instability Status: Acute Assessment & Plan: Pt rested today, showing improvement per fim scores. COnt with Plan of care with PT and OT, review in team meeting tomorrow. (2) Essential tremor Status: Acute Assessment & Plan: Pt stable . tremor improving with PT and OT and nursing assist. (3) Declining functional status Status: Acute Assessment & Plan: Managed by medical. DVT Prophylaxis: SCD'S Code Status Do Not Resuscitate Interventions to Obtain Goals PT Treatment Plan: Therapeutic Exercise, Gait Training, Functional Activities , Patient/Family Education, Balance/Proprioception OT Treatment Plan: ADL's (basic care), Ther. Exercise for ADL's, UE Functional Training, Balance Training, Pt./Family Education, IADL's ST Treatment Plan: Communication Retraining Hospital Course Summary Disclaimer The hospital course summary below is not to be considered part of the above Progress Note. Hospital Course Summary 05/21/[address] Yi, recommendation to increase Clonazepam to 0.75mg three times daily. May consider adding Lamictal later on. This was discussed with Dr Blanco. Continue with current Primidone and propranolol Blood pressure has remained stable on lisinopril 10 milligrams daily Continue with Aspercreme topically for thoracic muscle spasms Continue Celexa, appreciate psychiatric consultation. Continue PT and OT for gait stability and strengthening. Continue with ST for improving dysphagia 05/25/16 Clinically stable. Back spasms improved. Check TSH to complete evaluation of macrocytosis. Blood pressure well-controlled. Continue therapies. 05/28 Her tremors have improved immensely. Continue with Clonazepam 0.5mg every 8 hours and Primidone 25mg twice daily. Appreciate continued neurologic recommendations as per Dr. Yi. To prevent further impactions we will add MiraLax daily. Continue Colace daily. MOM and Dulcolax suppositories PRN bowel motivation. BP is well controlled on Inderal and Lisinopril, currently 119/62. Continue to encourage strengthening and function improvement with PT and OT. DENNIS BLANCO MD Jun 01, 2016 20:46
[2016-06-01 22:12] VITALS: PULSE 63
--- NOTE | 2016-06-02 00:29 | NUR ---
Chart Check 24 hour chart check completed
[2016-06-02] MEDS: CLONAZEPAM 0.5 MG TABLET PO SCH ×3 (05:59→22:02)
--- NOTE | 2016-06-02 06:05 | NUR ---
SUMMARY. PT HAS BEEN PLEASANT AND COOPERATIVE. TAKES MEDS WHOLE ONE AT A TIME WITH DUYEN PUDDING AT HS. TOOK CLONAZEPAM GIVEN WITH APPLESAUCE. PT ESTRADA BEEN CONT B AND B. PT IS SBA WITH FWW AND GAITBELT. ABLE TO MANAGE CLOTHING AND HYGIENE WITH TOILETING. PT REPORTS HAS BEEN SLEEPING WELL.
[2016-06-02 08:30] VITALS: BP 140/59; PULSE 55; RESP 16; TEMP 96.2; O2SAT 97
[2016-06-02] MEDS: PRIMIDONE 50 MG TABLET PO SCH ×2 (08:33→22:03)
[2016-06-02] MEDS: MULTIVIT + MINERALS (OPTI-GEN) PO SCH (08:33)
[2016-06-02] MEDS: PROPRANOLOL 10 MG TABLET PO SCH ×2 (08:34→22:03)
[2016-06-02] MEDS: DOCUSATE SODIUM 100 MG CAPSULE PO SCH ×2 (08:34→22:03)
[2016-06-02] MEDS: LISINOPRIL 10 MG TABLET PO SCH (08:34)
--- NOTE | 2016-06-02 10:27 | STDAILYN ---
ST Daily Note Date/Time DATE: 06/02/16 TIME: 10:18 Subjective Comment Pt was in good spirits, watching the geese from her window. No complaint of pain. Mild tremors noted during session. Pt reported that the tremors were much better. Orientations: Person, Place, Alert, Cooperative Chief Complaint: memory and speech disturbances Pain: No *Speech Therapy Impressions rajani Term Goals: 1. Pt will express needs and wants in a variety of communication settings. Pt formulated multiple sentences to describe activities outside her window. She also talked about her plan to go to a penitentiary when she left the hospital. Pt was concerned about having more help. Speech was mildly hesitant but 95% intelligible. 2. Pt will understand basic conversation. Pt participated in basic conversation with appropriate turn taking. 3. Pt will improve breath support for speech. Pt independently used diaphragmatic breathing when speech was dysfluent. Short Term Objectives: 1. Pt will formulate sentences to describe event or activity with 90% accuracy. Sentence formulation completed with 19/20 accuracy. 2. Pt will listen to short story and recall 3/5 facts with 90% accuracy. Pt recalled 8/10 facts from short story. 3. Pt will complete diaphragmatic breathing ex with inhalation (6 seconds) and exhalation 8 seconds on 8/10 trials. Pt completed 6 second inhalation and 6 second exhalation on 9/[address] Treatment Plan: Cognitive Linguistic Tx ST Treatment Plan Frequency: five times per week Treatment Plan Duration: two weeks Start Treatment 1: 09:40 Stop Treatment 1: 10:10 Treatment Duration : ST Treatment Charge: Speech Treatment Minutes of Individual Therapy: 30 ESTRELLA DRISCOLL MS CCC-BINDING CUTTER SYNTHETIC CLOTH Jun 02, 2016 10:26
--- NOTE | 2016-06-02 12:51 | PDIRUTEAM ---
Multidisciplinary Team Meeting Nursing Hx Incontinence: Yes Bladder Goal: 6 Modified [place] Y/N: No Bladder Continent or Incontine: Continent Incontinent Product Used: Pull-up Number of Times Incontinent of: 0 Cleaning Ability-Bladder: 5 Supervision/Setup Bladder Incontinence Managemen: 0 Activity Does Not Occur Bowel Goal: 6 Modified [place] Colostomy Y/N: No Bowel Incontinent/Continent: Continent Bowel Number of Accidents: 0 Number of times Incontinent of: 0 Cleaning Ability-Bowel: 5 Supervision/Setup Colostomy Care: 0 Activity Does Not Occur Bowel Incontinence Management: 0 Activity Does Not Occur Toileting Ability: 6 Modified [place] Vital Signs Vital Signs Date Time Temp Pulse Resp B/P Pulse Ox O2 Delivery O2 Flow Rate FiO2 06/02/16 08:30 96.2 55 16 140/59 97 Room Air Current Medications Current Medications Medications (Trade) Dose Ordered Sig/Silviano Route PRN Reason Start Time Stop Time Status Last Admin Dose Admin Docusate Sodium (Colace) 100 mg BID PO 05/18/16 21:00 06/02/16 08:34 Citalopram Hydrobromide (Celexa) 20 mg DAILY PO 05/19/16 09:00 06/02/16 08:34 Lisinopril (Prinivil) 10 mg DAILY PO 05/19/16 09:00 06/02/16 08:34 Lorazepam (Ativan) 0.5 mg Q6HR PRN PO ANXIETY/AGITATION 05/18/16 16:45 05/19/16 05:59 Primidone (Mysoline) 25 mg BID PO 05/18/16 21:00 06/02/16 08:33 Propranolol HCl (Inderal) 10 mg BID PO 05/18/16 21:00 06/02/16 08:34 Multivitamins/ Minerals (Vision) 1 tab DAILY PO 05/19/16 09:00 06/02/16 08:33 Trolamine Salicylate (Aspercreme) 1 applic PRN PRN TOP 05/19/16 09:30 05/20/16 18:34 Clonazepam (Klonopin) 0.5 mg Q8H PO 05/19/16 16:45 05/21/16 15:02 DC 05/21/16 08:16 Clonazepam (Klonopin) 0.75 mg Q8H PO 05/21/16 16:45 05/27/16 11:58 DC 05/27/16 08:52 Bisacodyl (Dulcolax) 10 mg DAILY PRN RECTALLY CONSTIPATION 05/22/16 20:45 05/27/16 20:03 Ondansetron HCl (Zofran Odt) 4 mg Q4H PRN PO NAUSEA &/OR VOMITING 05/22/16 22:45 05/22/16 22:46 Clonazepam (Klonopin) 0.5 mg Q8H PO 05/27/16 16:45 05/30/16 06:51 DC 05/30/16 03:30 Magnesium Hydroxide (Mom) 30 ml DAILY PRN PO CONSTIPATION 05/27/16 23:45 05/29/16 09:05 Clonazepam (Klonopin) 0.5 mg Q8H PO 05/30/16 07:00 06/02/16 05:59 Physical Therapy Bed Transfer Ability: 5 Supervision/Setup Bed Transfer Assistance Needed: 1 Person Chair Transfer Ability: 5 Supervision/Setup Chair Transfer Assistance Need: 1 Person Overall Wheelchair Transfer Ab: 4 Minimal Assistance Wheelchair Transfer Assistance: 1 Person Overall Toilet / Commode Trans: 6 Modified [place] Ambulation Ability: 5 Supervision/Setup Ambulation Assistance Needed: 1 Person Walk FIM Score Reason: Poor balance. Pt unable to focus to correct gait for very long. Ambulation Distance: 1033 Comments Improving and shake/tremor improving , especially with hobbies. Occupational Therapy Grooming Ability: 5 Supervision/Setup Bathing Ability: 4 Minimal Assistance Upper Body Dressing Ability: 5 Supervision/Setup Lower Body Dressing Ability: 5 Supervision/Setup Lower Body Dressing Assistance: 1 Person Toileting Assistance Needed: 1 Person Comments Requiring some ques , but definitely showing improvement. Care Plan Condition at time of discharge: Fair IRU Discharge Disposition: Home, self care Interventions/Goals D/c plan -- assisted living. Family meeting last week. Day 14 . Looking for placement. DENNIS BLANCO MD Jun 02, 2016 12:51
--- NOTE | 2016-06-02 13:16 | PNPDOC ---
Subjective Date DATE: 06/02/16 TIME: 13:04 Joshua Rosa is seen today in follow up while eating breakfast. She is alert and without complaints. She reports that she took a shower this morning and she feels that her hair is getting too long. She otherwise denies having pain or shortness of breath. Denies GI complaints. Overall tremors continues much improved, absent at times. Objective Vital Signs Vital signs Vital Signs Date Time Temp Pulse Resp B/P Pulse Ox O2 Delivery O2 Flow Rate FiO2 06/02/16 08:30 96.2 55 16 140/59 97 Room Air Telemetry Rhythm: Sinus Rhythm Height (Feet): 5 Height (Inches): 2.00 Weight (Kilograms): 77.600 General General Appearance: Alert, Orientated x 3, Cooperative, No Acute Distress Eyes (Brief) Eyes: FOUND: EOMI ENMT (Brief) ENMT: FOUND: mucosa moist, normal dentition, NOT FOUND: pharnyx erythema Neck (Brief) Neck: FOUND: midline, NOT FOUND: adenopathy, carotid bruits, tracheal deviation Respiratory (Brief) Respiratory: FOUND: clear all bocanegra, equal bilaterally, NOT FOUND: wheezes Cardiovascular (Brief) Cardiac: FOUND: regular rate, regular rhythm, NOT FOUND: murmur, pedal edema Capillary Refill: <2 sec Abdomen (Brief) Abdominal: FOUND: BS normo active x4, soft, NOT FOUND: distended, tender Lymphatic (Brief) Lymphatic: NOT FOUND: adenopathy Musculoskeletal (Brief) Musculoskeletal: NOT FOUND: tenderness Integumentary (Brief) Integumentary: FOUND: dry, pink, warm Neurologic (Brief) Neurological: FOUND: cranial 2-12 intact Psychiatric (Brief) Psychiatric: FOUND: alert, attentive, normal affect, oriented Assessment & Plan Problems: (1) Essential tremor Status: Acute (2) Declining functional status Status: Acute (3) Dysphagia Status: Acute (4) HTN (hypertension) Status: Chronic (5) Gait instability Status: Acute (6) Constipation Status: Resolved (7) Anxiety Status: Chronic (8) Depression Status: Chronic (9) Osteoarthritis Status: Chronic (10) Obesity (BMI 30-39.9) Status: Chronic (11) Macrocytosis without anemia Assessment & Plan: B-12 565 in December 2015 Plan/Intensity of Service 06/02 Working on discharge planning as per IRU providers. Her tremors have improved greatly and she continues on Clonazepam 0.5mg and Primidone 25mg twice daily. Appreciate continued neurologic recommendations as per Dr. Yi. Continue MiraLax and Colace daily. MOM and Dulcolax suppositories PRN bowel motivation. BP is well controlled on Inderal and Lisinopril. Continue to encourage strengthening and function improvement with PT and OT. Code Status Do Not Resuscitate Hospital Course Summary Disclaimer The hospital course summary below is not to be considered part of the above Progress Note. Hospital Course Summary 05/21/[address] Yi, recommendation to increase Clonazepam to 0.75mg three times daily. May consider adding Lamictal later on. This was discussed with Dr Salgado. Continue with current Primidone and propranolol Blood pressure has remained stable on lisinopril 10 milligrams daily Continue with Aspercreme topically for thoracic muscle spasms Continue Celexa, appreciate psychiatric consultation. Continue PT and OT for gait stability and strengthening. Continue with ST for improving dysphagia 05/25/16 Clinically stable. Back spasms improved. Check TSH to complete evaluation of macrocytosis. Blood pressure well-controlled. Continue therapies. 05/28 Her tremors have improved immensely. Continue with Clonazepam 0.5mg every 8 hours and Primidone 25mg twice daily. Appreciate continued neurologic recommendations as per Dr. Yi. To prevent further impactions we will add MiraLax daily. Continue Colace daily. MOM and Dulcolax suppositories PRN bowel motivation. BP is well controlled on Inderal and Lisinopril, currently 119/62. Continue to encourage strengthening and function improvement with PT and OT. 06/02 Working on discharge planning as per IRU providers. Her tremors have improved greatly and she continues on Clonazepam 0.5mg and Primidone 25mg twice daily. Appreciate continued neurologic recommendations as per Dr. Yi. Continue MiraLax and Colace daily. MOM and Dulcolax suppositories PRN bowel motivation. BP is well controlled on Inderal and Lisinopril. Continue to encourage strengthening and function improvement with PT and OT. LITO ESTEVEZ APRN Jun 02, 2016 13:12
[2016-06-02 16:27] VITALS: BP 95/45; PULSE 55; RESP 16; TEMP 98.2; O2SAT 93
--- NOTE | 2016-06-02 17:35 | NUR ---
MARCELL LEFT MESSAGE WITH KASHIF, ADVERTISING CLERK OF [employer], RE: STATUS OF WEEKEND VISIT AND TO SCHEDULE AN EVALUATION. CALLED [facility] FELI. SHE SAID THEY TOURED [employer] HOME BUT NOT VERY IMPRESSED. SHE SAID SHE WANTS PT TO TRY AND GET BACK HOME IF ABLE, SINCE THE PT REALLY WANTS TO RETURN HOME. SHE ASKED IF PT COULD GO TO SNU, IN HOPES THAT PT COULD RETURN HOME AFTER THAT. SHE SAID THEY REALIZE THE WILL NEED TO DO SOMETHING WITH THE TWIN SISTER (WHO CAUSES PT STRESS), SUCH MOVING THE TWIN OUT. SHE SAID SHE WANTS TO TRY SNU AT [facility]. SHE ALSO SAID A CARE ASSESSMENT WAS SCHEDULED WITH ADELAIDE GRAVES (INTERNAL CONTROL SPECIALIST) FOR TOMORROW AT 11 AM, AND FELI'S WILL BE PRESENT. PLAN: [facility]
--- NOTE | 2016-06-02 18:00 | NUR ---
Shift Summary Enjoys visiting with other patients and enjoys crocheting. Pt ambulates well with contact guard assist of 1, FWW, and gait belt. Has been continent of bowel and bladder this shift able to manage her own clothing and cares. Ate well for meals, did not need assist with her tray, ambulates to the dining room. Denied pain this shift. Worked well with therapy today. Manages her own oral care with her dentures. When in bed or the chair the alarm is in use and call light is within reach.
[2016-06-02 19:23] VITALS: BP 113/57; PULSE 61; RESP 18; TEMP 97.8; O2SAT 92
--- NOTE | 2016-06-02 22:50 | NUR ---
Shift Note Pt. independent with hygiene. Pivot transfers to wheelchair with assist of 1 and gait belt for bathroom needs and then back to bed. Denies pain. Right leg elevated on pillows. Addendum: 06/02/16 at 2252 by JENNY PABLO RN Note above on wrong patient.
--- NOTE | 2016-06-02 22:52 | NUR ---
Shift Note Pt. up with one, walker and gait belt. Independent with dressing at bedtime; except assist of one with lower extremities. Independent with hygiene.
--- NOTE | 2016-06-03 00:25 | NUR ---
Chart Check 24 hour chart check completed
[2016-06-03] MEDS: CLONAZEPAM 0.5 MG TABLET PO SCH ×3 (06:34→23:11)
--- NOTE | 2016-06-03 06:36 | NUR ---
Shift Note Pt. slept well overnight. Denies pain.
[2016-06-03 07:36] VITALS: BP 103/51; PULSE 63; RESP 14; TEMP 97.7; O2SAT 94
[2016-06-03] MEDS: POLYETHYL.GLYCOL 3350 PACKET 17gm PO SCH (08:35)
[2016-06-03] MEDS: DOCUSATE SODIUM 100 MG CAPSULE PO SCH ×2 (08:35→23:11)
[2016-06-03] MEDS: LISINOPRIL 10 MG TABLET PO SCH (08:35)
[2016-06-03] MEDS: MULTIVIT + MINERALS (OPTI-GEN) PO SCH (08:35)
[2016-06-03] MEDS: PROPRANOLOL 10 MG TABLET PO SCH ×2 (08:36→23:11)
[2016-06-03] MEDS: PRIMIDONE 50 MG TABLET PO SCH ×2 (08:36→23:11)
--- NOTE | 2016-06-03 09:25 | NUR ---
MARCELL LEFT MESSAGE WITH JEFFREY AT [facility], RE: TRANSFER TO THEIR SKILLED UNIT?
[2016-06-03 09:31] VITALS: PULSE 63; RESP 14
--- NOTE | 2016-06-03 11:35 | NUR ---
CM SPOKE WITH PT AND BROTHER DERIK PRESENT. REVIEWED PT'S IRU POC; PT REQUESTED DERIK TO SIGN, AND HE SIGNED THIS. DISCUSSED DC PLANNING, OF SNU. PT AGREEABLE. ADELAIDE, WITH CARE ASSESSMENT, ARRIVED TO COMPLETE THE ASSESSMENT. LEFT ANOTHER MESSAGE WITH MOI Robledo&Kathy (THIS TIME WITH MICHI).
--- NOTE | 2016-06-03 13:23 | NUR ---
CM CALL FROM MICHI WITH [facility]; SHE SAID THEY ARE FULL AND FIRST PROBABLE AVAILABILITY WOULD BE THURSDAY. SHE SAID SHE WILL CALL THIS WORKER IF SOMETHING COMES OPENED SOONER.
--- NOTE | 2016-06-03 14:06 | NUR ---
CM CALLED [facility], FELI; UPDATED HER ON [facility] BEING FULL. SHE SAID HER OTHER CHOICE WOULD BE [facility]. THIS WORKER EXPLAINED THIS WORKER WILL CALL RIGHT NOW, BUT ASKED HER ALSO TO BE THINKING OF ANOTHER CHOICE IN CASE [facility] CALLED AND LEFT MESSAGE WITH [facility] ([phone]).
--- NOTE | 2016-06-03 14:24 | STDAILYN ---
ST Daily Note Date/Time DATE: 06/03/16 TIME: 13:51 Subjective Comment Upon arrival, patient was in the dining room. Patient transferred to room via FWW. Patient was in a pleasant mood and had no c/o pain or fatigue. Graduate clinician provided therapy while being supervised by MANAGER DIGITAL Holger. Orientations: x 3, Person, Place, Alert Chief Complaint: Essential Tremors Pain: No (Patient reported having no pain ) Was Patient Education Provided: Yes Person(s) Educated: Patient Education Subject: Treatment Plan Instruction Understanding Demo: Pt. verbalizes understand Education Comment Patient was educated on treatment plan. Patient verbalized understanding. *Speech Therapy Impressions Holter Scanning Technician Goals: 1. Pt will express needs and wants in a variety of communication settings. 2. Pt will understand basic conversation. 3. Pt will improve breath support for speech. Short Term Objectives: 1. Pt will formulate sentences to describe event or activity with 90% accuracy Patient formulated sentences with approximately 95% accuracy. Patient demonstrated minimal to no disfluencies (i.e. part and whole word repetitions) and minimal tremors throughout the conversation. 2. Pt will listen to short story and recall 3/5 facts with 90% accuracy. Patient was read a 2 sentence passage then asked 2 questions regarding each passage. Patient exhibited 80% accuracy and required minimum prompts via forced choices. 3. Pt will complete diaphragmatic breathing with inhalation (6 seconds) and exhalation 8 seconds on 8/10 trials. Patient was educated on steps of diaphragmatic breathing. Patient completed 10 trials (5 trials at the beginning and 5 trials at the end of the session) with inhalation (6 seconds) and exhalation (6 seconds) with minimal prompts throughout the task. ST Treatment Plan: Cognitive Linguistic Tx ST Treatment Plan Frequency: five times per week Treatment Plan Duration: one week Plan of Care Comment: Continue Plan of Care Start Treatment 1: 13:15 Stop Treatment 1: 13:45 Treatment Duration : ST Treatment Charge: Speech Treatment Minutes of Individual Therapy: 30 ST FIM Comprehension Ability: 5 Supervision/Setup Social Interaction: 5 Supervision/Setup Problem Solvin Supervision/Setup Memory: 5 Supervision/Setup Expression Ability: 5 Supervision/Setup Swallowin Supervision/Setup KRYSTA WALDROP Jun 03, 2016 13:53
[2016-06-03 16:00] VITALS: BP 117/56; PULSE 60; RESP 20; TEMP 97.5; O2SAT 96
--- NOTE | 2016-06-03 17:03 | NUR ---
CM CALL FROM KETTY WITH [facility]. SHE SAID TO FAX THE RECORDS AND SHE HOPES TO HAVE A DECISION ABOUT SKILLED BY TOMORROW AROUND NOON. RECORDS FAXED. CALL FROM [employer] [facility]. UPDATED HER. SHE PROVIDED AN ADDITIONAL CHOICE FOR SNU'S: [facility], #[phone].
[2016-06-03 19:31] VITALS: BP 109/55; PULSE 63; RESP 16; TEMP 97.4; O2SAT 96
[2016-06-03 19:42] VITALS: PULSE 66
--- NOTE | 2016-06-03 20:32 | NUR ---
SHIFT SUMMARY PT HAS BEEN PLEASANT AND COOPERATIVE. HAS BEEN OUT TO DINING ROOM FOR ALL MEALS. PT AMBULATES WITH FWW AND GAIT BELT. USES CALL LIGHT. WORKS WITH THERAPY.
[2016-06-04] VITALS: BP 109/55; PULSE 66; RESP 16; TEMP 97.4; O2SAT 96
--- NOTE | 2016-06-04 04:43 | NUR ---
24 hr. check okay
[2016-06-04] MEDS: CLONAZEPAM 0.5 MG TABLET PO SCH ×3 (06:56→21:02)
[2016-06-04 07:18] VITALS: BP 123/64; PULSE 57; RESP 16; TEMP 97.6; O2SAT 96
--- NOTE | 2016-06-04 07:35 | NUR ---
END of SHIFT SUMMARY: Alert and orientated. Able to verbally express needs, thoughts and concerns. Sometimes her speech becomes mumbled; however, most of the time her speech is clear and easy to understand. Mild tremoring of extremities continue......sometimes more evident than others. Crochets this evening; hand are not tremoring when she crochets. Ambulates to BR with use of walker and stand by assistance. Takes medications without difficulty. Tolerates food and fluid well. No c/o.
[2016-06-04] MEDS: DOCUSATE SODIUM 100 MG CAPSULE PO SCH ×2 (08:31→21:02)
[2016-06-04] MEDS: PRIMIDONE 50 MG TABLET PO SCH ×2 (08:31→21:02)
[2016-06-04] MEDS: PROPRANOLOL 10 MG TABLET PO SCH ×2 (08:31→21:02)
[2016-06-04] MEDS: MULTIVIT + MINERALS (OPTI-GEN) PO SCH (08:31)
[2016-06-04] MEDS: LISINOPRIL 10 MG TABLET PO SCH (08:31)
[2016-06-04] MEDS: POLYETHYL.GLYCOL 3350 PACKET 17gm PO SCH (08:31)
--- NOTE | 2016-06-04 11:50 | STDAILYN ---
ST Daily Note Date/Time DATE: 06/04/16 TIME: 11:38 Subjective Comment Patient was sitting in the dining room upon arrival, then transferred back to room via FWW. Patient was in a pleasant mood, reported that she slept well, and no c/o pain or fatigue. Graduate clinician provided therapy while being supervised by ALMOND BLANCHER OPERATOR Holger. Orientations: x 3, Cooperative Chief Complaint: Essential Tremors Pain: No (Patient reported having no pain ) Was Patient Education Provided: Yes Person(s) Educated: Patient Education Subject: Treatment Plan Instruction Understanding Demo: Pt. verbalizes understand Education Comment Patient was educated on treatment plan. Patient verbalized understanding. *Speech Therapy Impressions Welding Robot Operator Goals: 1. Pt will express needs and wants in a variety of communication settings. 2. Pt will understand basic conversation. 3. Pt will improve breath support for speech. Short Term Objectives: 1. Pt will formulate sentences to describe event or activity with 90% accuracy Patient formulated sentences with approximately 95% accuracy. Patient demonstrated no disfluencies and minimal tremors throughout the conversation. 2. Pt will listen to short story and recall 3/5 facts with 90% accuracy. Patient was read a 2 sentence passage then asked 2 questions regarding each passage. Patient exhibited 70% accuracy and required minimum prompts via forced choices and phonemic cues. 3. Pt will complete diaphragmatic breathing with inhalation (6 seconds) and exhalation 8 seconds on 8/10 trials. Patient was educated on steps of diaphragmatic breathing. Patient completed 10 trials (5 trials at the beginning and 5 trials at the end of the session) with inhalation (6 seconds) and exhalation (6 seconds) with minimal prompts throughout the task. ST Treatment Plan: Cognitive Linguistic Tx ST Treatment Plan Frequency: five times per week Treatment Plan Duration: one week Plan of Care Comment: Continue Plan of Care Start Treatment 1: 09:43 Stop Treatment 1: 09:13 Treatment Duration : ST Treatment Charge: Speech Treatment Minutes of Individual Therapy: 30 ST FIM Comprehension Ability: 5 Supervision/Setup Social Interaction: 5 Supervision/Setup Problem Solvin Supervision/Setup Memory: 5 Supervision/Setup Expression Ability: 5 Supervision/Setup Swallowin Supervision/Setup KRYSTA WALDROP Jun 04, 2016 11:41
--- NOTE | 2016-06-04 15:44 | NUR ---
CM CALL FROM MANUEL WITH [facility]; SHE HAD SOME QUESTIONS THAT THIS WORKER ANSWERED, PLUS SHE SPOKE WITH PT'S RN TO ANSWER FURTHER QUESTIONS. RECEIVED VOICEMAIL FROM [facility] SAYING PT IS ACCEPTED TO THEIR SNU UNIT. CALLED JEFFREY AT [facility]. SHE SAID PT IS ACCEPTED TO THEIR SNU. SHE SAID SHE WILL CALL THIS WORKER TOMORROW WITH THE TIME THEY WILL PICK THE PT UP. CALLED [facility]; UPDATED HER ON ACCEPTANCE. DISCUSSED INSURANCE EXECUTIVE TIME WILL BE TOMORROW, AND SHE WAS AGREEABLE TO THIS.
[2016-06-04 16:12] VITALS: BP 94/46; PULSE 62; RESP 16; TEMP 97.8; O2SAT 95
--- NOTE | 2016-06-04 20:23 | PNPDOC ---
IRU Subjective Date DATE: 06/04/16 TIME: 20:21 Subjective Pt working with PT and OT. Tremors overall improving and she is finding areas of comfortability in which to better function. IRU Objective Vital Signs Vital signs Vital Signs Date Time Temp Pulse Resp B/P Pulse Ox O2 Delivery O2 Flow Rate FiO2 06/04/16 16:12 97.8 62 16 94/46 95 Room Air Telemetry Rhythm: Sinus Rhythm Height (Feet): 5 Height (Inches): 2.00 Weight (Kilograms): 80.600 General General Appearance: Alert Respiratory (Brief) Respiratory: FOUND: clear all bocanegra, equal bilaterally Cardiovascular (Brief) Cardiac: FOUND: regular rate, regular rhythm Capillary Refill: <2 sec Assessment & Plan Problems: (1) Gait instability Status: Acute Assessment & Plan: Present, but improved. PT and OT still working with her, while we work on placement. (2) Essential tremor Status: Acute Assessment & Plan: Definitely related to stress and environmental factors. Pt working well with staff and finding ways to control. (3) Declining functional status Status: Acute Assessment & Plan: improving , continues to work with PT and OT Code Status Do Not Resuscitate Interventions to Obtain Goals PT Treatment Plan: Therapeutic Exercise, Gait Training, Functional Activities , Patient/Family Education, Balance/Proprioception OT Treatment Plan: ADL's (basic care), Ther. Exercise for ADL's, UE Functional Training, Balance Training, Pt./Family Education, IADL's ST Treatment Plan: Cognitive Linguistic Tx Hospital Course Summary Disclaimer The hospital course summary below is not to be considered part of the above Progress Note. Hospital Course Summary 05/21/[address] Yi, recommendation to increase Clonazepam to 0.75mg three times daily. May consider adding Lamictal later on. This was discussed with Dr Blanco. Continue with current Primidone and propranolol Blood pressure has remained stable on lisinopril 10 milligrams daily Continue with Aspercreme topically for thoracic muscle spasms Continue Celexa, appreciate psychiatric consultation. Continue PT and OT for gait stability and strengthening. Continue with ST for improving dysphagia 05/25/16 Clinically stable. Back spasms improved. Check TSH to complete evaluation of macrocytosis. Blood pressure well-controlled. Continue therapies. 05/28 Her tremors have improved immensely. Continue with Clonazepam 0.5mg every 8 hours and Primidone 25mg twice daily. Appreciate continued neurologic recommendations as per Dr. Yi. To prevent further impactions we will add MiraLax daily. Continue Colace daily. MOM and Dulcolax suppositories PRN bowel motivation. BP is well controlled on Inderal and Lisinopril, currently 119/62. Continue to encourage strengthening and function improvement with PT and OT. 06/02 Working on discharge planning as per IRU providers. Her tremors have improved greatly and she continues on Clonazepam 0.5mg and Primidone 25mg twice daily. Appreciate continued neurologic recommendations as per Dr. Yi. Continue MiraLax and Colace daily. MOM and Dulcolax suppositories PRN bowel motivation. BP is well controlled on Inderal and Lisinopril. Continue to encourage strengthening and function improvement with PT and OT. DENNIS BLANCO MD Jun 04, 2016 20:23
--- NOTE | 2016-06-04 20:52 | NUR ---
SHIFT SUMMARY PT HAS BEEN PLEASANT AND COOPERATIVE. HAS BEEN OUT TO DINING ROOM FOR MEALS. AMBULATES WITH FWW AND GAIT BELT. PT ENJOYS VISITING WITH OTHER PTS AT DINING ROOM TABLE.
--- NOTE | 2016-06-04 21:35 | PNPDOC ---
Subjective Date DATE: 06/04/16 TIME: 21:27 Subjective Mrs Bronson was seen briefly for reassessment. She reports that tremor has been faster today but denied dyspnea, pain, or nausea. She is very apprehensive about potential for discharge in the next day or 2. Objective Vital Signs Vital signs Vital Signs Date Time Temp Pulse Resp B/P Pulse Ox O2 Delivery O2 Flow Rate FiO2 06/04/16 16:12 97.8 62 16 94/46 95 Room Air EXAM General-NAD, very soft spoken Lungs-respirations nonlabored, breath sounds clear Cardiac-regular rhythm Abd-soft, nontender, bowel sounds present Ext-trace edema Musculoskeletal-degenerative changes in the small joints of the hands Neuro-mild tremor involving the upper back and arms Psych-mild anxiety Telemetry Rhythm: Sinus Rhythm Height (Feet): 5 Height (Inches): 2.00 Weight (Kilograms): 80.600 Assessment & Plan Problems: (1) Essential tremor Status: Acute (2) Declining functional status Status: Acute (3) Dysphagia Status: Acute (4) HTN (hypertension) Status: Chronic (5) Gait instability Status: Acute (6) Constipation Status: Resolved (7) Anxiety Status: Chronic (8) Depression Status: Chronic (9) Osteoarthritis Status: Chronic (10) Obesity (BMI 30-39.9) Status: Chronic (11) Macrocytosis without anemia Assessment & Plan: B-12 565 in December 2015 Assessment Medically stable although apprehensive about discharge plans. Nursing asked to coordinate a call between the patient and her DPOA to help reassure the patient. Reassess basic metabolic panel and CBC in a.m., hemoglobin down slightly when last assessed. Blood pressure low normal, lisinopril decreased to 5 mg daily. Plan/Intensity of Service Discussed with nursing, laboratory data reviewed. Code Status Do Not Resuscitate Hospital Course Summary Disclaimer The hospital course summary below is not to be considered part of the above Progress Note. Hospital Course Summary 05/21/[address] Yi, recommendation to increase Clonazepam to 0.75mg three times daily. May consider adding Lamictal later on. This was discussed with Dr Salgado. Continue with current Primidone and propranolol Blood pressure has remained stable on lisinopril 10 milligrams daily Continue with Aspercreme topically for thoracic muscle spasms Continue Celexa, appreciate psychiatric consultation. Continue PT and OT for gait stability and strengthening. Continue with ST for improving dysphagia 05/25/16 Clinically stable. Back spasms improved. Check TSH to complete evaluation of macrocytosis. Blood pressure well-controlled. Continue therapies. 05/28 Her tremors have improved immensely. Continue with Clonazepam 0.5mg every 8 hours and Primidone 25mg twice daily. Appreciate continued neurologic recommendations as per Dr. Yi. To prevent further impactions we will add MiraLax daily. Continue Colace daily. MOM and Dulcolax suppositories PRN bowel motivation. BP is well controlled on Inderal and Lisinopril, currently 119/62. Continue to encourage strengthening and function improvement with PT and OT. 06/02 Working on discharge planning as per IRU providers. Her tremors have improved greatly and she continues on Clonazepam 0.5mg and Primidone 25mg twice daily. Appreciate continued neurologic recommendations as per Dr. Yi. Continue MiraLax and Colace daily. MOM and Dulcolax suppositories PRN bowel motivation. BP is well controlled on Inderal and Lisinopril. Continue to encourage strengthening and function improvement with PT and OT. 06/04/16-Ron Medically stable although apprehensive about discharge plans. Nursing asked to coordinate a call between the patient and her DPOA to help reassure the patient. Reassess basic metabolic panel and CBC in a.m., hemoglobin down slightly when last assessed. Blood pressure low normal, lisinopril decreased to 5 mg daily. JUANITO VALLEJO MD Jun 04, 2016 21:30
[2016-06-04 22:38] VITALS: BP 121/62; PULSE 61; RESP 22; TEMP 98.1; O2SAT 96
--- NOTE | 2016-06-04 23:47 | NUR ---
Chart Check 24 hour chart check completed
[2016-06-04 23:56] VITALS: PULSE 61; RESP 22
--- NOTE | 2016-06-04 23:58 | NUR ---
Summary patient alert and oriented times three, pleasant and cooperative. She takes her medications whole with chocolate pudding. She gets tremors when she is anxious or nervous. She ambulates with supervision using FWW and gait belt. She is able to do self cares with supervision. She is currently in bed with side rails up times two, call light within reach, SCDS on and bed alarm on.
[2016-06-05 05:01] LABS: BASOPHILS % (AUTO) 0.4 % (0-2); EOSINOPHILS # (AUTO) 0.2 T/MM3 (0-0.5); EOSINOPHILS % (AUTO) 3.7 % (0-4); HCT - HEMATOCRIT 34.5 % (36-46); HGB - HEMOGLOBIN 11.2 GM/DL (12-16); IMMATURE GRANULOCYTE # (AUTO) 0.01 T/MM3 (0.00-0.03); IMMATURE GRANULOCYTE % (AUTO) 0.2 % (0.0-0.5); LYMPHOCYTES # (AUTO) 2.5 T/MM3 (1-4.8); LYMPHOCYTES % (AUTO) 50.1 % (23-45); MEAN CORPUSCULAR HGB 32.7 UUG (26-34); MEAN CORPUSCULAR HGB CONC(MCHC 32.5 GM/DL (31-37); MEAN CORPUSCULAR VOLUME 100.6 UM3 (80-100); MEAN PLATELET VOLUME 10.1 UM3 (9.4-12.4); MONOCYTES # (AUTO) 0.5 T/MM3 (0-0.8); NEUTROPHILS #(AUTO)-ABSOLUTE 1.7 T/MM3 (1.8-7.7); NEUTROPHILS % (AUTO) 34.6 % (33-66); RED BLOOD COUNT 3.43 M/MM3 (4.00-5.20); WBC - WHITE BLOOD COUNT 4.9 T/MM3 (4.5-11.0)
[2016-06-05 05:33] LABS: ANION GAP 7 MEQ/L (5-15); BUN/CREATININE RATIO 24 RATIO (6-26); CALCIUM 8.8 MG/DL (8.4-10.2); CHLORIDE 105 MEQ/L (98-107); CO2 - CARBON DIOXIDE 27 MEQ/L (22-30); CREATININE 0.8 MG/DL (0.7-1.2); GLOMERULAR FILTRATION RATE 70; GLUCOSE 97 MG/DL (65-110); POTASSIUM 4.4 MEQ/L (3.6-5); SODIUM 139 MEQ/L (134-144)
[2016-06-05] MEDS: CLONAZEPAM 0.5 MG TABLET PO SCH (06:43)
--- NOTE | 2016-06-05 06:43 | NUR ---
Shift Note Slept well overnight. Up to bathroom and back to bed this morning; gait belt, walker, and assist of one.
[2016-06-05 07:33] VITALS: BP 115/65; PULSE 58; RESP 18; TEMP 97.1; O2SAT 93
[2016-06-05] MEDS: MULTIVIT + MINERALS (OPTI-GEN) PO SCH (08:21)
[2016-06-05] MEDS: PRIMIDONE 50 MG TABLET PO SCH (08:22)
[2016-06-05] MEDS: PROPRANOLOL 10 MG TABLET PO SCH (08:22)
[2016-06-05] MEDS: DOCUSATE SODIUM 100 MG CAPSULE PO SCH (08:22)
[2016-06-05] MEDS: POLYETHYL.GLYCOL 3350 PACKET 17gm PO SCH (08:23)
[2016-06-05] MEDS: LISINOPRIL 5 MG TABLET PO SCH ×2 (08:24→10:58)
[2016-06-05] MEDS ORDERED: CLON0.5T4 PO (09:52)
[2016-06-05] MEDS ORDERED: LISI-625 PO (09:52)
[2016-06-05] MEDS ORDERED: LORA0.5T86 PO (09:52)
[2016-06-05] MEDS ORDERED: POLY17PO18 PO (09:52)
[2016-06-05] MEDS ORDERED: MAGN400O4 PO (09:52)
--- NOTE | 2016-06-05 10:04 | PDOCECFAO ---
Admission Orders Admission Orders Admit to: [facility] Allergies: Coded Allergies: Penicillins (Verified Allergy, Unknown, 05/16/16) Uncoded Allergies: UNKNOWN OTHER MEDS (Allergy, Unknown, 05/16/16) Admitting Diagnosis Essential Tremors Admitting Physician Errol Salgado MD Code Status Do Not Resuscitate Anticipated LOS: 30 days or less Rehab Potential: Good Rehab Prognosis: Good Wound/Incision Care: N/A Evaluations/Treat: Speech, PT, OT [facility] Certification I certify that SNF services are required to be given on an Inpatient basis because of the patients need for usp care on a continuing basis for the condition(s) for which he/she received inpatient hospital services prior to his/her transfer to the SNF. SNF inpatient care is necessary for the following reasons Other (PT,OT,ST) LITO ESTEVEZ APRN Jun 05, 2016 10:04
--- NOTE | 2016-06-05 11:01 | NUR ---
MARCELL SPOKE WITH PT, RE: TRANSFERRING TODAY TO [facility]. SHE WAS AGREEABLE. REVIEWED IM LETTER; PROVIDED HER A COPY SINCE SHE DID NOT WANT TO SIGN, SHE WANTED FAMILY TO SIGN. CALL FROM KETTY WITH [facility]; ENDOSCOPY TECH WILL BE ABOUT NOON. SHE ASKED THAT THE PT'S DPOA AND INSURANCE MEDICAID CARD BE FAXED. THIS WORKER FAXED THESE. CALLED DPOA/SIS IN LAW FELI. UPDATED HER OF ENDOSCOPY TECH TIME. SHE WAS AGREEABLE. REVIEWED IM LETTER WITH HER, AND SHE HAD NO QUESTIONS/CONCERNS ABOUT IT. Addendum: 06/05/16 at 1103 by REBEKAH MENDOZA Amended: Links added.
[2016-06-05 11:21] VITALS: BP 121/87; PULSE 60; O2SAT 97
--- NOTE | 2016-06-05 11:50 | NUR ---
DISCHARGE NOTE PATIENT ALERT AND ORIENTED, INSTRUCTED ON D/C MEDS, F/U APPTS, EDUCATION PAPERWORK. PATIENT UNDERSTOOD DISCHARGE INSTRUCTIONS PARTIALLY, D/C INSTRUCTION FAXED TO [facility]. REPORT CALLED TO NURSE AT [facility]. [facility], D/C INSTRUCTIONS, MED LIST, D/C INFO ON TREMORS, INFO ON NEW SCRIPTS SENT IN PACKET FOR [place]. PATIENT TAKEN OUT FRONT EXIT WITH [place] TRANSPORTER AND TOOL AND DIE MAKER APPRENTICE.
--- NOTE | 2016-06-05 12:15 | NUR ---
CM TIME OUT COMPLETED WITH RN. CALLED KETTY WITH [facility]; SHE SAID SHE RECEIVED THE FAX OF THE ORDERS AND DOES NOT NEED ANYTHING FURTHER FROM THIS WORKER.
--- NOTE | 2016-06-05 13:14 | NUR ---
D/C NOTE ADDENDUM COURTESY CALL TO TERESA, S/W FELI- OF PATIENTS BROTHER. NOTIFIED HER OF FOLLOW-UP APPT 06/17/16, NOTIFIED HER OF PACKET THAT WAS SENT WITH PATIENT TO [facility]. NOTIFIED HER OF REPORT CALLED AND PATIENT'S CALM STATUS AT D/C.
--- NOTE | 2016-06-05 13:20 | STDAILYN ---
Discharge Note Date/Time DATE: 06/05/16 TIME: 13:15 Discharge From: Inpatient ST Reason for Discharge: Transf. to Diff. Facility Discharge Destination: SNU Discharge Summary: Patient progressed toward breathing goals and comprehension goals. Patient discharged to different facility. No skilled speech recommended following discharge. KRYSTA WALDROP Jun 05, 2016 13:18
--- NOTE | 2016-06-09 14:53 | DSPDOC ---
General Date Date DATE: 06/05/16 TIME: 14:51 Attending Physician Errol Blanco MD Admitting Physician Errol Blanco MD Consulting Physician Juana Yi MD Admitting Diagnosis Essential Tremors Discharge Diagnosis Essential Tremor HTN Anxiety Depression Osteoarthritis Obesity History of Present Illness 75 yo female with hx of Essential Tremor. Pt has severe enough sx, that she has lost weight, developed instability walking and was falling at home.T remor worsens sig with fatigue and anxiety. She was started on Primidone and PT and OT worked with her on inpatient. She is unsafe to return home and continues to need medication adjustment. Hospital Course 05/21/[address] Yi, recommendation to increase Clonazepam to 0.75mg three times daily. May consider adding Lamictal later on. This was discussed with Dr Blanco. Continue with current Primidone and propranolol Blood pressure has remained stable on lisinopril 10 milligrams daily Continue with Aspercreme topically for thoracic muscle spasms Continue Celexa, appreciate psychiatric consultation. Continue PT and OT for gait stability and strengthening. Continue with ST for improving dysphagia 05/25/16 Clinically stable. Back spasms improved. Check TSH to complete evaluation of macrocytosis. Blood pressure well-controlled. Continue therapies. 05/28 Her tremors have improved immensely. Continue with Clonazepam 0.5mg every 8 hours and Primidone 25mg twice daily. Appreciate continued neurologic recommendations as per Dr. Yi. To prevent further impactions we will add MiraLax daily. Continue Colace daily. MOM and Dulcolax suppositories PRN bowel motivation. BP is well controlled on Inderal and Lisinopril, currently 119/62. Continue to encourage strengthening and function improvement with PT and OT. 06/02 Working on discharge planning as per IRU providers. Her tremors have improved greatly and she continues on Clonazepam 0.5mg and Primidone 25mg twice daily. Appreciate continued neurologic recommendations as per Dr. Yi. Continue MiraLax and Colace daily. MOM and Dulcolax suppositories PRN bowel motivation. BP is well controlled on Inderal and Lisinopril. Continue to encourage strengthening and function improvement with PT and OT. 06/04/16-Ron Medically stable although apprehensive about discharge plans. Nursing asked to coordinate a call between the patient and her DPOA to help reassure the patient. Reassess basic metabolic panel and CBC in a.m., hemoglobin down slightly when last assessed. Blood pressure low normal, lisinopril decreased to 5 mg daily. 06/05/2016 Essential tremor, certainly worsened by stress. Small dose Xanax 3 times a day prescribed by neurology, which seemed to make a great difference for the patient. She has certain family members which seemed to make the tremor and stuttering severe, physical therapy and occupational therapy worked with her to practice relaxation and control techniques. The tremor was severe enough that patient was unable to manage her ADLs and unable to maintain hydration or nutrition. At time of discharge she was significantly improved, [facility] Problems: (1) Essential tremor Status: Acute (2) Declining functional status Status: Acute (3) Dysphagia Status: Acute (4) HTN (hypertension) Status: Chronic (5) Gait instability Status: Acute (6) Constipation Status: Resolved (7) Anxiety Status: Chronic (8) Depression Status: Chronic (9) Osteoarthritis Status: Chronic (10) Obesity (BMI 30-39.9) Status: Chronic (11) Macrocytosis without anemia Assessment & Plan: B-12 565 in December 2015 Code Status Do Not Resuscitate Home Meds Active Scripts Clonazepam (Clonazepam) 0.5 Mg Tablet, 0.5 MG PO Q8H for 30 Days, #90 TAB Prov:LITO ESTEVEZ APRN 06/05/16 Magnesium Hydroxide (Milk of Magnesia) 400 Mg/5 Ml Oral.susp, 30 ML PO DAILY Y for CONSTIPATION for 30 Days Prov:LITO ESTEVEZ APRN 06/05/16 Polyethylene Glycol 3350 (Healthylax) 17 Gm Powd.pack, 17 G PO DAILY for 30 Days Prov:LITO ESTEVEZ APRN 06/05/16 Lisinopril (Lisinopril) 5 Mg Tablet, 5 MG PO DAILY for 30 Days, #30 TAB Prov:LITO ESTEVEZ APRN 06/05/16 Lorazepam (Ativan) 0.5 Mg Tablet, 0.5 MG PO Q6HR Y for ANXIETY/AGITATION, #30 TAB Prov:LITO ESTEVEZ APRN 06/05/16 Primidone (Mysoline) 50 Mg Tablet, 25 MG PO BID, #30 TAB Prov:LENKA CASTRO MD 05/18/16 Propranolol HCl (Propranolol HCl) 10 Mg Tablet, 10 MG PO BID, #60 TAB Prov:LENKA CASTRO MD 05/18/16 Reported Medications Acetaminophen (Acetaminophen) 500 Mg Tablet, 500-1000 MG PO Q8H Y for PAIN 05/16/16 Antiox #11/Om3/Dha/Epa/Lut/Velasquez (Eye Health Adult 50+ Softgel) 1 Each Capsule, 1 CAP PO DAILY 05/16/16 Citalopram Hydrobromide (Citalopram HBr) 20 Mg Tablet, 20 MG PO DAILY 05/16/16 Discontinued Reported Medications Clonazepam (Clonazepam) 0.5 Mg Tablet, 0.5 TAB PO Q8H Y for PRN ORDERS 05/16/16 Lisinopril (Lisinopril) 10 Mg Tablet, 10 MG PO DAILY 11/17/13 Discontinued Scripts Lorazepam (Lorazepam) 2 Mg/1 Ml Vial, 1 MG IV Q4H Y for tremor/anxiey , #10 Prov:LENKA CASTRO MD 05/18/16 Face to Face Encounter I met with patient on the day of dismissal and discussed follow up appointments , medications, and safety plan. Discharge Disposition [facility] facility ERROL BLANCO MD Jun 09, 2016 14:53
== END 2016-06-05 11:50 | DRG 93 ==
PROVIDERS: ADMIT Family Medicine; ATTEND Family Medicine
PROC: F07Z9FZ Gait Training/Functional Ambulation Treatment using Assistive, Adaptive, Supportive or Protective Equipment (ICD-10-PCS; principal; 2016-05-18)
PROC: F07M6ZZ Therapeutic Exercise Treatment of Musculoskeletal System - Whole Body (ICD-10-PCS; 2016-05-18)
PROC: F08Z4ZZ Home Management Treatment (ICD-10-PCS; 2016-05-18)
DX: G25.0 Essential tremor (principal); R26.89 Other abnormalities of gait and mobility; R13.10 Dysphagia, unspecified; R53.81 Other malaise; R47.1 Dysarthria and anarthria; I10 Essential (primary) hypertension; F41.9 Anxiety disorder, unspecified; F32.9 Major depressive disorder, single episode, unspecified; Z66 Do not resuscitate; D75.89 Other specified diseases of blood and blood-forming organs; M19.91 Primary osteoarthritis, unspecified site; E66.9 Obesity, unspecified; Z68.32 Body mass index [BMI] 32.0-32.9, adult
CPT/HCPCS: 36415; 80048; 82948; 84443; 85025